=== PATIENT | female | born 1985 | race Hispanic/Latino ===

== ENCOUNTER 2018-03-22 13:59 | Emergency (ER) | payer SELFPAY ==
[2018-03-22 14:57] LABS: Absolute Lymphocytes (CBC) 1.7 K/uL (0.7-4.9); Absolute Monocytes 0.8 K/uL (0.1-1.3); Absolute Neutrophil 8.1 K/uL (1.8-8.0); Basophils % 0.4 % (0-1.3); Eosinophils % 0.5 % (0-4.4); Hematocrit 41.6 % (36.0-45.0); Lymphocytes % 15.8 % (15.3-44.8); MPV 8.7 fL (7.6-11.3); Monocytes % 7.3 % (3.3-12.3); RBC Red Blood Cell Count 4.52 M/uL (3.86-4.86)
[2018-03-22 15:17] LABS: Potassium 3.7 mmol/L (3.5-5.1)
[2018-03-22 15:22] LABS: Bilirubin Direct 0.1 mg/dL (0-0.2)
[2018-03-22 15:24] LABS: Bilirubin Total 0.3 mg/dL (0.2-1.0); Protein, Total 8.4 g/dL (6.4-8.2)
--- NOTE | 2018-03-22 16:12 | ER ---
Nurse's Notes [facility] Name: Geoff Sanz Age: 32 yrs Sex: Female : 1985 Arrival Date: 03/22/2018 Time: 14:06 Bed 23 Private MD: Diagnosis: Abdominal and pelvic pain Presentation: 03/22 14:06 Presenting complaint: EMS states: She has had abdominal pain off and on for 4 days. ed1 Reports blood in urine and stool. Transition of care: patient was not received from another setting of care. Onset of symptoms was March 18, 2018. Risk Assessment: Do you want to hurt yourself or someone else? Patient reports no desire to harm self or others. Initial Sepsis Screen: Does the patient meet any 2 criteria? No. Patient's initial sepsis screen is negative. Does the patient have a suspected source of infection? No. Patient's initial sepsis screen is negative. Care prior to arrival: Medication(s) given: zofran 4 mg, IV initiated. 20 GA, in the left forearm. 14:06 Method Of Arrival: EMS: [facility] ed1 14:08 Acuity: BERNADETTE 3 hb Triage Assessment: 14:09 General: Appears in no apparent distress. Behavior is calm, cooperative. Pain: Denies ed1 pain. GI: Abdomen is non-distended, Bowel sounds present X 4 quads. Abd is soft and non tender X 4 quads. Reports lower abdominal pain, bloody stool, nausea, Patient currently denies vomiting. : Reports blood in urine. Derm: Skin is intact, is healthy with good turgor, Skin is dry, Skin is normal, Skin temperature is warm. 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 - Social history:: Patient uses IV drugs, amphetamines, Patient/guardian denies using alcohol, street drugs, The patient lives with family, Smoking status: Patient uses tobacco products, smokes one pack cigarettes per day. - Ebola Screening: : Patient negative for fever greater than or equal to 101.5 degrees Fahrenheit, and additional compatible Ebola Virus Disease symptoms Patient denies exposure to infectious person Patient denies travel to an Ebola-affected area in the 21 days before illness onset No symptoms or risks identified at this time. - Family history:: not pertinent. Screenin:12 Abuse screen: Denies threats or abuse. Denies injuries from another. Nutritional ed1 screening: No deficits noted. Tuberculosis screening: No symptoms or risk factors identified. Fall Risk No fall in past 12 months (0 pts). No secondary diagnosis (0 pts). IV access (20 points). Ambulatory Aid- None/Bed Rest/Nurse Assist (0 pts). Gait- Normal/Bed Rest/Wheelchair (0 pts) Mental Status- Oriented to own ability (0 pts). Total Kennedy Fall Scale indicates No Risk (0-24 pts). Assessment: 14:12 General: Appears in no apparent distress. Behavior is calm, cooperative, Denies pain at ed1 this time. Pain: Denies pain. Neuro: Level of Consciousness is awake, alert, obeys commands, Oriented to person, place, time, situation. Cardiovascular: Denies chest pain, Heart tones S1 S2 present. Respiratory: Airway is patent Respiratory effort is even, unlabored, Respiratory pattern is regular, symmetrical, Breath sounds are clear bilaterally. GI: Abdomen is non-distended, Bowel sounds present X 4 quads. Abd is soft and non tender X 4 quads. Reports lower abdominal pain, bloody stool, nausea, pain that comes and goes. : Reports blood in urine. EENT: No signs and/or symptoms were reported regarding the EENT system. Derm: Skin is intact, is healthy with good turgor, Skin is dry, Skin is normal, Skin temperature is warm. Musculoskeletal: Circulation, motion, and sensation intact. 14:30 Reassessment: I agree with previous assessment. hb 15:14 Reassessment: Patient appears in no apparent distress at this time. No changes from ed1 previously documented assessment. Patient and/or family updated on plan of care and expected duration. Pain level reassessed. Patient is alert, oriented x 3, equal unlabored respirations, skin warm/dry/pink. Patient denies pain at this time. 16:20 Reassessment: Patient appears in no apparent distress at this time. Patient and/or ed1 family updated on plan of care and expected duration. Pain level reassessed. Patient is alert, oriented x 3, equal unlabored respirations, skin warm/dry/pink. Pt sleeping in bed. Vital Signs: 14:09 BP 110 / 94; Pulse 78; Resp 18; Temp 98.6(O); Pulse Ox 100% on R/A; Weight 74.84 kg; ed1 Height 5 ft. 1 in. (154.94 cm); Pain 0/10; 15:14 BP 103 / 76; Pulse 72; Resp 19; Pulse Ox 100% on R/A; Pain 0/10; ed1 16:20 BP 109 / 76; Pulse 83; Resp 17; Pulse Ox 100% on R/A; Pain 0/10; ed1 14:09 Body Mass Index 31.18 (74.84 kg, 154.94 cm) ed1 ED Course: 14:06 Patient arrived in ED. ed1 14:07 Abran Carpio MD is Attending Physician. ma2 14:09 Arm band placed on right wrist. ed1 14:12 Patient has correct armband on for positive identification. Placed in gown. Bed in low ed1 position. Call light in reach. Side rails up X 1. Pulse ox on. NIBP on. Door closed. Lights dimmed. Warm blanket given. 14:18 Triage completed. 14:44 Cece Magallon LVN is Primary Nurse. ed1 16:20 No provider procedures requiring assistance completed. IV discontinued, intact, ed1 bleeding controlled, No redness/swelling at site. Pressure dressing applied. Administered Medications: 15:15 Not Given (Patient Refused): Tylenol 1000 mg PO once ed1 Outcome: 16:11 Discharge ordered by . ma2 16:20 Discharged to home via wheelchair. ed1 16:20 Condition: good 16:20 Discharge instructions given to patient, Instructed on discharge instructions, follow up and referral plans. medication usage, Demonstrated understanding of instructions, follow-up care, medications, Prescriptions given X 1. 16:28 Patient left the ED. ed1 Signatures: Cece Magallon LVN LVN ed1 Meena Garza, RN RN Abran Carpio MD MD ma2
--- NOTE | 2018-03-22 16:12 | EDPHYS ---
Physician Documentation [facility] Name: Geoff Sanz Age: 32 yrs Sex: Female : 1985 Arrival Date: 03/22/2018 Time: 14:06 Bed 23 Private MD: ED Physician Abran Carpio HPI: 03/22 14:25 This 32 yrs old Female presents to ER via EMS with complaints of Abdominal ma2 Pain. 14:25 The patient presents with abdominal pain. Onset: The symptoms/episode began/occurred ma2 gradually. The symptoms radiate to right leg. Associated signs and symptoms: Pertinent negatives: nausea, vomiting, and diarrhea, nausea and vomiting, blood in stools, chest pain, constipation, palpitations, vaginal discharge, vomiting blood. The symptoms are described as burning. Severity of pain: At its worst the pain was moderate in the emergency department the pain is unchanged. The patient has experienced similar episodes in the past. 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 - Social history:: Patient uses IV drugs, amphetamines, Patient/guardian denies using alcohol, street drugs, The patient lives with family, Smoking status: Patient uses tobacco products, smokes one pack cigarettes per day. - Ebola Screening: : Patient negative for fever greater than or equal to 101.5 degrees Fahrenheit, and additional compatible Ebola Virus Disease symptoms Patient denies exposure to infectious person Patient denies travel to an Ebola-affected area in the 21 days before illness onset No symptoms or risks identified at this time. - Family history:: not pertinent. ROS: 14:25 Constitutional: Negative for fever, chills, and weight loss, Cardiovascular: Negative ma2 for chest pain, palpitations, and edema, Respiratory: Negative for shortness of breath, cough, wheezing, and pleuritic chest pain, Back: Negative for injury and pain, : Negative for injury, bleeding, discharge, and swelling, Endocrine: Negative for neck swelling, polydipsia, polyuria, polyphagia, and marked weight changes. 14:25 Abdomen/GI: Positive for abdominal pain, Negative for nausea and vomiting, nausea, vomiting, and diarrhea, vomiting, abdominal cramps. 14:25 All other systems are negative. Exam: 14:25 Constitutional: This is a well developed, well nourished patient who is awake, alert, ma2 and in no acute distress. ENT: Nares patent. No nasal discharge, no septal abnormalities noted. Tympanic membranes are normal and external auditory canals are clear. Oropharynx with no redness, swelling, or masses, exudates, or evidence of obstruction, uvula midline. Mucous membranes moist. Neck: Trachea midline, no thyromegaly or masses palpated, and no cervical lymphadenopathy. Supple, full range of motion without nuchal rigidity, or vertebral point tenderness. No Meningismus. Chest/axilla: Normal chest wall appearance and motion. Nontender with no deformity. No lesions are appreciated. Cardiovascular: Regular rate and rhythm with a normal S1 and S2. No gallops, murmurs, or rubs. Normal PMI, no JVD. No pulse deficits. Respiratory: Lungs have equal breath sounds bilaterally, clear to auscultation and percussion. No rales, rhonchi or wheezes noted. No increased work of breathing, no retractions or nasal flaring. Abdomen/GI: Soft, non-tender, with normal bowel sounds. No distension or tympany. No guarding or rebound. No evidence of tenderness throughout. Vital Signs: 14:09 BP 110 / 94; Pulse 78; Resp 18; Temp 98.6(O); Pulse Ox 100% on R/A; Weight 74.84 kg; ed1 Height 5 ft. 1 in. (154.94 cm); Pain 0/10; 15:14 BP 103 / 76; Pulse 72; Resp 19; Pulse Ox 100% on R/A; Pain 0/10; ed1 16:20 BP 109 / 76; Pulse 83; Resp 17; Pulse Ox 100% on R/A; Pain 0/10; ed1 14:09 Body Mass Index 31.18 (74.84 kg, 154.94 cm) ed1 MDM: 14:07 Patient medically screened. ma2 14:25 Differential diagnosis: Dysmenorrhea, Endometriosis, gastritis, gastroesophageal reflux ma2 disease. 16:10 Data reviewed: vital signs, nurses notes. Counseling: I had a detailed discussion with carmella the patient and/or guardian regarding: the historical points, exam findings, and any diagnostic results supporting the discharge/admit diagnosis, the presence of at least one elevated blood pressure reading (>120/80) during this emergency department visit, the need for outpatient follow up. Response to treatment: the patient's symptoms have resolved after treatment. 03/22 14:17 Order name: Basic Metabolic Panel [facility] 03/22 14:17 Order name: CBC with Diff; Complete Time: 15:39 [facility] 03/22 14:17 Order name: Creatinine for Radiology; Complete Time: 15:39 [facility] 03/22 14:17 Order name: Hepatic Function [facility] 03/22 14:17 Order name: Lipase [facility] 03/22 14:17 Order name: IV Saline Lock; Complete Time: 14:45 [facility] 03/22 14:17 Order name: Labs collected and sent; Complete Time: 14:45 [facility] Administered Medications: 15:15 Not Given (Patient Refused): Tylenol 1000 mg PO once ed1 Disposition: 03/22/18 16:11 Discharged to Home. Impression: Abdominal and pelvic pain. - Condition is Stable. - Discharge Instructions: Abdominal Pain, Adult. - Prescriptions for Tylenol- Codeine #3 300-30 mg Oral Tablet - take 2 tablet by ORAL route every 6 hours As needed; 30 tablet. - Medication Reconciliation Form, Thank You Letter, Antibiotic Education, Prescription Opioid Use form. - Follow up: Private Physician; When: Tomorrow; Reason: Continuance of care. Signatures: Dispatcher [employer] EDMS Cece Magallon LVN SPRING FLOOR SERVICE WORKER ed1 Abran Carpio MD MD ma2 Corrections: (The following items were deleted from the chart) 16:28 16:11 03/22/2018 16:11 Discharged to Home. Impression: Abdominal and pelvic pain. ed1 Condition is Stable. Forms are Medication Reconciliation Form, Thank You Letter, Antibiotic Education, Prescription Opioid Use. Follow up: Private Physician; When: Tomorrow; Reason: Continuance of care. ma2
[2018-03-22 16:36] LABS: Albumin 3.9 g/dL (3.4-5.0)
== END 2018-03-22 16:28 | disposition home or self-care (01) ==
LOC: ER 13:59
DX: R10.9 Unspecified abdominal pain (principal); R10.2 Pelvic and perineal pain; F17.210 Nicotine dependence, cigarettes, uncomplicated
CPT/HCPCS: 36415; 80048; 80076; 83690; 85025; 99283

== ENCOUNTER 2018-06-01 15:13 | Emergency (ER) | payer SELFPAY ==
[2018-06-01 16:29] LABS: Barbiturates NEGATIVE (NEGATIVE); Benzodiazepines POSITIVE (NEGATIVE); Cocaine NEGATIVE (NEGATIVE); METHAMPHETAM POSITIVE (NEGATIVE); Methadone NEGATIVE (NEGATIVE); Opiates NEGATIVE (NEGATIVE); Phencyclidine NEGATIVE (NEGATIVE); THC Cannibis NEGATIVE (NEGATIVE)
[2018-06-01] MEDS ORDERED: DICYCLOMINE HCL 10 MG CAP ONE (16:39)
[2018-06-01] MEDS ORDERED: PANTOPRAZOLE 40 MG INJ ONE (16:39)
[2018-06-01] MEDS ORDERED: NA CHLORIDE 0.9% 1,000 ML ONE (16:39)
[2018-06-01 17:02] LABS: Absolute Lymphocytes (CBC) 1.2 K/uL (0.7-4.9); Absolute Monocytes 0.5 K/uL (0.1-1.3); Absolute Neutrophil 9.9 K/uL (1.8-8.0); Basophils % 0.6 % (0-1.3); Eosinophils % 0.2 % (0-4.4); Hematocrit 38.9 % (36.0-45.0); Lymphocytes % 10.2 % (15.3-44.8); MPV 9.1 fL (7.6-11.3); Monocytes % 4.4 % (3.3-12.3); RBC Red Blood Cell Count 4.23 M/uL (3.86-4.86)
[2018-06-01] MEDS ORDERED: LIDOCAINE VISCOUS 2% SOLN 15 ML UDC ONE (17:54)
[2018-06-01] MEDS ORDERED: MAGNE/ALUM HYDROXD 30 ML UCUP ONE (17:54)
--- NOTE | 2018-06-01 17:54 | RAD REPORT ---
EXAM DESCRIPTION: RAD - Chest Single View - 06/01/2018 5:41 pm CLINICAL HISTORY: Abdominal pain, vomiting COMPARISON: None. TECHNIQUE: AP portable chest image was obtained 1739 hours . FINDINGS: Lungs are clear. Heart and vasculature are normal. No measurable pleural effusion and no p neumothorax. No acute bony abnormality seen. No acute aortic findings suspected. IMPRESSION: No acute cardiopulmonary process.
[2018-06-01 17:56] LABS: ALT/SGPT 13 U/L (12-78); AST/SGOT 13 U/L (15-37); Albumin 3.9 g/dL (3.4-5.0); Alkaline Phosphatase 75 U/L (45-117); Amylase Level 50 U/L (25-115); BUN Blood Urea Nitrogen 12 mg/dL (7-18); Bicarbonate 26 mmol/L (21-32); Bilirubin Direct < 0.1 mg/dL (0-0.2); Bilirubin Total 0.3 mg/dL (0.2-1.0); Glucose Level 116 mg/dL (74-106); Lipase 54 U/L (73-393); Potassium 3.9 mmol/L (3.5-5.1); Protein, Total 7.8 g/dL (6.4-8.2); Sodium Level 140 mmol/L (136-145)
[2018-06-01 20:10] LABS: Urine Blood TRACE (NEG); Urine Glucose NEGATIVE (NEG); Urine Protein TRACE (NEG)
--- NOTE | 2018-06-01 20:15 | ER ---
Nurse's Notes [facility] Name: Geoff Sanz Age: 32 yrs Sex: Female : 1985 Arrival Date: 06/01/2018 Time: 15:19 Bed 3 Private MD: Diagnosis: Upper abdominal pain, unspecified;Drug induced movement disorder, unspecified-abdominal pain Presentation: 06/01 15:19 Presenting complaint: Patient states: Abdominal pain and vomiting for the past week. aj1 States "I've had this happen numerous times, they never find anything" EMS states that en route patient vomited something that appeared "red and watery" Patient appears pale. States that she smokes "a lot of synthetic", last smoked synthetic earlier today. Transition of care: patient was not received from another setting of care. Onset of symptoms was May 31, 2017. Risk Assessment: Do you want to hurt yourself or someone else? Patient reports no desire to harm self or others. Initial Sepsis Screen: Does the patient meet any 2 criteria? No. Patient's initial sepsis screen is negative. Does the patient have a suspected source of infection? Yes: Acute abdominal pain. Care prior to arrival: None. 15:19 Method Of Arrival: EMS: [facility] aj 15:19 Acuity: BERNADETTE 3 aj1 Triage Assessment: 15:23 General: Appears uncomfortable, Behavior is cooperative, anxious, restless. Pain: aj1 Complains of pain in abdomen diffusely Pain currently is 10 out of 10 on a pain scale. GI: Reports lower abdominal pain, upper abdominal pain, vomiting. 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 - Social history:: Smoking status: Patient/guardian denies using tobacco, Patient uses synthetic marijuana . - Ebola Screening: : Patient denies travel to an Ebola-affected area in the 21 days before illness onset. Screenin:24 Abuse screen: Denies threats or abuse. Denies injuries from another. Nutritional aj1 screening: No deficits noted. Tuberculosis screening: No symptoms or risk factors identified. Assessment: 15:24 General: Appears uncomfortable, Behavior is cooperative, anxious, restless. Pain: aj1 Complains of pain in abdomen diffusely Pain does not radiate. Pain currently is 10 out of 10 on a pain scale. Quality of pain is described as sharp, Pain began one week ago Is intermittent. Neuro: Level of Consciousness is awake, alert, obeys commands. Cardiovascular: Patient's skin is warm and dry. Respiratory: Airway is patent Respiratory effort is even, unlabored, Respiratory pattern is regular, symmetrical. GI: Abdomen is flat, non-distended, Bowel sounds present X 4 quads. Abdomen is tender to palpation X 4 quads. : No signs and/or symptoms were reported regarding the genitourinary system. EENT: No signs and/or symptoms were reported regarding the EENT system. Derm: Skin is pale. Musculoskeletal: No signs and/or symptoms reported regarding the musculoskeletal system. Circulation, motion, and sensation intact. 16:40 Reassessment: Patient and/or family updated on plan of care and expected duration. Pain sg level reassessed. pt states " I need some fucking pain medication, my stomach is hurting. Shes been saying she was going to bring me some pain medication but no one has yet". pt educated on pain control and non pharm management, pt stated understanding, refuses to use those techniques at this time and reports needing the pain relievers. 17:40 Reassessment: Patient appears in no apparent distress at this time. No changes from aj1 previously documented assessment. Patient and/or family updated on plan of care and expected duration. Pain level reassessed. Patient is alert, oriented x 3, equal unlabored respirations, skin warm/dry/pink. 18:30 Reassessment: Patient appears calm, is sleeping at this time. aj1 19:39 Reassessment: Patient appears in no apparent distress at this time. No changes from aj1 previously documented assessment. Patient and/or family updated on plan of care and expected duration. Pain level reassessed. Patient is alert, oriented x 3, equal unlabored respirations, skin warm/dry/pink. 20:30 Reassessment: Patient is screaming, crying. States that she does not want to be aj1 discharged, patient is refusing to ambulate, she feels like her pain was not addressed. Notified LAURIE Barrios, nurse marketing communication manager of patient complaint. LAURIE Barrios, nurse marketing communication manager at bedside. 20:45 Reassessment: Mary Webster NP at bedside. aj1 21:00 Reassessment: Patient continues yelling, refuses Toradol, then immediately asks for aj1 something for pain. Deidra RN, charge nurse at bedside. 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 Vital Signs: 15:23 BP 159 / 95; Pulse 83; Resp 18; Temp 97.9(TE); Pulse Ox 97% on R/A; Weight 56.7 kg (R); aj1 Height 5 ft. 0 in. (152.40 cm) (R); Pain 10/10; 16:30 BP 154 / 73; Pulse 64; Resp 18; Pulse Ox 97% on R/A; aj1 17:30 BP 114 / 67; Pulse 65; Resp 18; Pulse Ox 100% on R/A; aj1 18:02 BP 152 / 93; Pulse 53; Resp 18; Pulse Ox 99% on R/A; aj1 19:39 BP 142 / 93; Pulse 52; Resp 18; Pulse Ox 100% ; aj1 20:15 BP 141 / 85; Pulse 63; Resp 18; Pulse Ox 98% ; aj1 15:23 Body Mass Index 24.41 (56.70 kg, 152.40 cm) aj1 ED Course: 15:19 Patient arrived in ED. aj1 15:22 Triage completed. aj1 15:23 Arm band placed on. aj1 15:24 Patient has correct armband on for positive identification. Bed in low position. Call aj1 light in reach. Side rails up X 1. 15:24 No provider procedures requiring assistance completed. aj1 15:53 Misti Webster FNP-C is [facility]. snw 15:53 Nando Meyers MD is Attending Physician. snw 15:58 Katharina Rosario, LAURIE is Primary Nurse. aj1 16:30 Inserted saline lock: 20 gauge in right antecubital area, using aseptic technique. jp3 Blood collected. 16:30 Initial lab(s) drawn, by in, sent to lab. Urine collected: clean catch specimen, clear, jp3 maria dolores colored. 16:35 Urine --Ancillary (enter results) Sent. jp3 16:35 Urine Dipstick--Ancillary (enter results) Sent. jp3 16:35 Chem 7 Sent. jp3 16:35 CBC with Diff Sent. jp3 16:35 Amylase, Serum Sent. jp3 16:35 Hepatic Function Sent. jp3 16:35 Lipase Sent. jp3 17:41 Chest Single View XRAY In Process Unspecified. EDMS 21:17 IV discontinued, intact, bleeding controlled, No redness/swelling at site. Pressure bb dressing applied. Administered Medications: 16:37 Drug: ProTONIX 40 mg Route: IVP; Site: right antecubital; sg 16:37 Drug: Bentyl 20 mg Route: PO; sg 16:38 Drug: NS 0.9% 1000 ml Route: IV; Rate: 1 bolus; Site: right antecubital; sg 17:53 Drug: GI Cocktail without - (Maalox Suspension 30 ml, Lidocaine Liquid 2 % 15 aj1 ml) Route: PO; 20:49 CANCELLED (Duplicate Order): TORadol 60 mg IM once dm5 21:11 CANCELLED (Patient Refused): TORadol 60 mg IM once aj1 Outcome: 20:14 Discharge ordered by . carmen 21:29 Discharged to home via wheelchair. bb 21:29 Condition: stable 21:29 Discharge instructions given to patient, Instructed on discharge instructions, follow up and referral plans. medication usage, Demonstrated understanding of instructions, follow-up care, medications, Prescriptions given X 1. 21:30 Patient left the ED. bb Signatures: Dispatcher [employer] EDKY Katharina Rosario RN RN aj1 Malachi Hidalgo RN RN sg Misti Webster, STRATEGY INTERN-C STRATEGY INTERN-Csnw Deidra Ngo RN RN Vitaliy Pimentel jp3 Dana Quick RN dm5
--- NOTE | 2018-06-01 20:15 | EDPHYS ---
Physician Documentation [facility] Name: Geoff Sanz Age: 32 yrs Sex: Female : 1985 Arrival Date: 06/01/2018 Time: 15:19 Bed 3 Private MD: ED Physician Nando Meyers HPI: 06/01 16:16 This 32 yrs old Female presents to ER via EMS with complaints of Abdominal snw Pain. 16:16 The patient presents with abdominal pain in the upper abdomen. Onset: The snw symptoms/episode began/occurred suddenly, status post smoking synthetic. The symptoms do not radiate. Associated signs and symptoms: Pertinent positives: nausea, anxiety. The symptoms are described as crampy, sharp. Modifying factors: The symptoms are alleviated by nothing. Severity of pain: At its worst the pain was moderate severe. The patient has experienced similar episodes in the past. It is unknown whether or not the patient has recently seen a physician. 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 - Social history:: Smoking status: Patient/guardian denies using tobacco, Patient uses synthetic marijuana . - Ebola Screening: : Patient denies travel to an Ebola-affected area in the 21 days before illness onset. ROS: 16:16 Constitutional: Negative for fever, chills, and weight loss, Eyes: Negative for injury, snw pain, redness, and discharge, ENT: Negative for injury, pain, and discharge, Neck: Negative for injury, pain, and swelling, Cardiovascular: Negative for chest pain, palpitations, and edema, Respiratory: Negative for shortness of breath, cough, wheezing, and pleuritic chest pain, Back: Negative for injury and pain, : Negative for injury, bleeding, discharge, and swelling, MS/Extremity: Negative for injury and deformity, Skin: Negative for injury, rash, and discoloration, Neuro: Negative for headache, weakness, numbness, tingling, and seizure. 16:16 Abdomen/GI: Positive for abdominal pain, nausea. Exam: 16:16 Constitutional: This is a well developed, well nourished patient who is awake, jumpy, snw and in abdominal distress. Head/Face: Normocephalic, atraumatic. Eyes: Pupils equal round and reactive to light, extra-ocular motions intact. Lids and lashes normal. Conjunctiva and sclera are non-icteric and not injected. Cornea within normal limits. Periorbital areas with no swelling, redness, or edema. ENT: Nares patent. No nasal discharge, no septal abnormalities noted. Tympanic membranes are normal and external auditory canals are clear. Oropharynx with no redness, swelling, or masses, exudates, or evidence of obstruction, uvula midline. Mucous membranes moist. Neck: Trachea midline, no thyromegaly or masses palpated, and no cervical lymphadenopathy. Supple, full range of motion without nuchal rigidity, or vertebral point tenderness. No Meningismus. Chest/axilla: Normal chest wall appearance and motion. Nontender with no deformity. No lesions are appreciated. Cardiovascular: Regular rate and rhythm with a normal S1 and S2. No gallops, murmurs, or rubs. Normal PMI, no JVD. No pulse deficits. Respiratory: Lungs have equal breath sounds bilaterally, clear to auscultation and percussion. No rales, rhonchi or wheezes noted. No increased work of breathing, no retractions or nasal flaring. Back: No spinal tenderness. No costovertebral tenderness. Full range of motion. Skin: Warm, dry with normal turgor. Normal color with no rashes, no lesions, and no evidence of cellulitis. MS/ Extremity: Pulses equal, no cyanosis. Neurovascular intact. Full, normal range of motion. Neuro: Awake and alert, GCS 15, oriented to person, place, time, and situation. Cranial nerves II-XII grossly intact. Motor strength 5/5 in all extremities. Sensory grossly intact. Cerebellar exam normal. Normal gait. Psych: Awake, alert, with orientation to person, place and time. Behavior, mood, and affect are within normal limits. 16:16 Abdomen/GI: Inspection: abdomen appears normal, Bowel sounds: active, Palpation: moderate abdominal tenderness, in the epigastric area, right upper quadrant and left upper quadrant. Vital Signs: 15:23 BP 159 / 95; Pulse 83; Resp 18; Temp 97.9(TE); Pulse Ox 97% on R/A; Weight 56.7 kg (R); aj1 Height 5 ft. 0 in. (152.40 cm) (R); Pain 10/10; 16:30 BP 154 / 73; Pulse 64; Resp 18; Pulse Ox 97% on R/A; aj1 17:30 BP 114 / 67; Pulse 65; Resp 18; Pulse Ox 100% on R/A; aj1 18:02 BP 152 / 93; Pulse 53; Resp 18; Pulse Ox 99% on R/A; aj1 19:39 BP 142 / 93; Pulse 52; Resp 18; Pulse Ox 100% ; aj1 20:15 BP 141 / 85; Pulse 63; Resp 18; Pulse Ox 98% ; aj1 15:23 Body Mass Index 24.41 (56.70 kg, 152.40 cm) aj1 MDM: 15:53 Patient medically screened. snw 17:47 Data reviewed: vital signs, nurses notes. Data interpreted: Pulse oximetry: on room air snw is 97 %. Interpretation: normal. Counseling: I had a detailed discussion with the patient and/or guardian regarding: the historical points, exam findings, and any diagnostic results supporting the discharge/admit diagnosis, lab results, radiology results, the need for outpatient follow up. Response to treatment: There is no appreciated change of the patient's symptoms at this time, still c/o upper abdominal pain. 06/01 15:57 Order name: UDS; Complete Time: 16:42 snw 06/01 15:57 Order name: Amylase, Serum; Complete Time: 17:57 snw 06/01 15:57 Order name: Hepatic Function; Complete Time: 17:57 snw 06/01 15:57 Order name: Lipase; Complete Time: 17:57 snw 06/01 15:57 Order name: CBC with Diff; Complete Time: 17:17 snw 06/01 15:57 Order name: Chem 7; Complete Time: 17:57 snw 06/01 15:57 Order name: Chest Single View XRAY; Complete Time: 17:56 snw 06/01 16:23 Order name: Urine Dipstick--Ancillary (enter results); Complete Time: 20:16 eb 06/01 16:23 Order name: Urine --Ancillary (enter results); Complete Time: 20:16 eb Administered Medications: 16:37 Drug: ProTONIX 40 mg Route: IVP; Site: right antecubital; sg 16:37 Drug: Bentyl 20 mg Route: PO; sg 16:38 Drug: NS 0.9% 1000 ml Route: IV; Rate: 1 bolus; Site: right antecubital; sg 17:53 Drug: GI Cocktail without - (Maalox Suspension 30 ml, Lidocaine Liquid 2 % 15 aj1 ml) Route: PO; 20:49 CANCELLED (Duplicate Order): TORadol 60 mg IM once dm5 21:11 CANCELLED (Patient Refused): TORadol 60 mg IM once aj1 Disposition: 06/01/18 20:14 Discharged to Home. Impression: Upper abdominal pain, unspecified, Drug induced movement disorder, unspecified - abdominal pain. - Condition is Stable. - Discharge Instructions: Abdominal Pain, Adult, What You Need To Know About Illegal Drug Use and Dependence, Youth. - Prescriptions for Pepcid 20 mg Oral Tablet - take 1 tablet by ORAL route once daily; 20 tablet. - Medication Reconciliation Form, Thank You Letter, Antibiotic Education, Prescription Opioid Use form. - Follow up: Emergency Department; When: 2 - 3 days; Reason: Recheck today's complaints, Continuance of care, Re-evaluation by your physician. Follow up: Private Physician; When: 2 - 3 days; Reason: Recheck today's complaints, Continuance of care, Re-evaluation by your physician. Addendum: 06/04/2018 06:53 Co-signature as Attending Physician, Nando Meyers MD I agree with the assessment and k dr plan of care. Signatures: Dispatcher [employer] EDDC Katharina Rosario RN RN aj Dana Quick RN RN dm Malachi Hidalgo RN RN Nando Meyers MD MD kdr Therrien, Shelly, SPICE GRINDER-C SPICE GRINDER-Csnw Deidra Ngo RN RN bb Corrections: (The following items were deleted from the chart) 06/01 20:49 20:49 TORadol 60 mg IM once ordered. dm5 dm5 21:11 20:49 TORadol 60 mg IM once ordered. snw aj1 21:30 20:14 06/01/2018 20:14 Discharged to Home. Impression: Upper abdominal pain, bb unspecified; Drug induced movement disorder, unspecified - abdominal pain. Condition is Stable. Forms are Medication Reconciliation Form, Thank You Letter, Antibiotic Education, Prescription Opioid Use. Follow up: Emergency Department; When: 2 - 3 days; Reason: Recheck today's complaints, Continuance of care, Re-evaluation by your physician. Follow up: Private Physician; When: 2 - 3 days; Reason: Recheck today's complaints, Continuance of care, Re-evaluation by your physician. snw
[2018-06-01] MEDS ORDERED: KETOROLAC 30 MG/ML INJ ONE (21:19)
== END 2018-06-01 21:30 | disposition home or self-care (01) ==
LOC: ER 15:13
DX: G25.70 Drug induced movement disorder, unspecified (principal); Z88.1 Allergy status to other antibiotic agents
CPT/HCPCS: 36415; 71045; 80048; 80076; 80307; 81003; 81025; 82150; 83690; 85025; 96374; 99284; C9113; J7030

== ENCOUNTER 2018-06-04 22:50 | Emergency (ER) | payer SELFPAY ==
[2018-06-05] MEDS ORDERED: ACETAMINOPHEN 500 MG TAB ONE (01:50)
[2018-06-05] MEDS ORDERED: BUPIVACAINE 0.5% PF 10 ML VIAL ONE (01:50)
[2018-06-05] MEDS ORDERED: CLINDAMYCIN IV 150 MG/ML (4 mL) VIAL ONE (01:51)
[2018-06-05] MEDS ORDERED: CLINDAMYCIN 600MG/D5W 600 MG/50 ML BAG IV ONE (01:53)
--- NOTE | 2018-06-05 04:32 | EDPHYS ---
Physician Documentation [facility] Name: Geoff Sanz Age: 32 yrs Sex: Female : 1985 Arrival Date: 06/04/2018 Time: 22:52 Bed 8 Private MD: ED Physician Manjinder Jean HPI: 06/05 04:19 This 32 yrs old Female presents to ER via Ambulatory with complaints of wa Abscess - MOUTH. 04:19 The patient presents with an abscess of the R lower pavithra gum line, the patient presents wa with a swollen area of the by the R lower gumline. Description: The affected area is moderate sized, localized, erythematous, swollen, pain. Onset: The symptoms/episode began/occurred 3 day(s) ago. Possible cause(s): unknown. Associated signs and symptoms: Pertinent positives: erythema, swelling, pain, Pertinent negatives: discharge, fever, headache, shortness of breath, vomiting. Modifying factors: the symptoms are alleviated by nothing, the symptoms are aggravated by chewing . Severity of symptoms: At their worst the symptoms were moderate, in the emergency department the symptoms are actually worse, moderately. The patient has not experienced similar symptoms in the past. The patient has not recently seen a physician. 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 - Social history:: Smoking status: Patient/guardian denies using tobacco. - Ebola Screening: : No symptoms or risks identified at this time. - Family history:: not pertinent. - Hospitalizations: : No recent hospitalization is reported. ROS: 06/05 04:22 Constitutional: Negative for fever, chills, and weight loss, Eyes: Negative for injury, wa pain, redness, and discharge, Neck: Negative for injury, pain, and swelling, Cardiovascular: Negative for chest pain, palpitations, and edema, Respiratory: Negative for shortness of breath, cough, wheezing, and pleuritic chest pain, Abdomen/GI: Negative for abdominal pain, nausea, vomiting, diarrhea, and constipation, Back: Negative for injury and pain, : Negative for injury, bleeding, discharge, and swelling, MS/Extremity: Negative for injury and deformity, Skin: Negative for injury, rash, and discoloration, Neuro: Negative for headache, weakness, numbness, tingling, and seizure, Psych: Negative for depression, anxiety, suicide ideation, homicidal ideation, and hallucinations. ENT: Positive for dental pain, Gum pain R lower gum line, swelling and redness with pain. All other systems are negative. Exam: 04:25 Constitutional: This is a well developed, well nourished patient who is awake, alert, wa and in no acute distress. Head/Face: Normocephalic, atraumatic. Eyes: Pupils equal round and reactive to light, extra-ocular motions intact. Lids and lashes normal. Conjunctiva and sclera are non-icteric and not injected. Cornea within normal limits. Periorbital areas with no swelling, redness, or edema. Neck: Trachea midline, no thyromegaly or masses palpated, and no cervical lymphadenopathy. Supple, full range of motion without nuchal rigidity, or vertebral point tenderness. No Meningismus. Chest/axilla: Normal chest wall appearance and motion. Nontender with no deformity. No lesions are appreciated. Cardiovascular: Regular rate and rhythm with a normal S1 and S2. No gallops, murmurs, or rubs. Normal PMI, no JVD. No pulse deficits. Respiratory: Lungs have equal breath sounds bilaterally, clear to auscultation and percussion. No rales, rhonchi or wheezes noted. No increased work of breathing, no retractions or nasal flaring. Abdomen/GI: Soft, non-tender, with normal bowel sounds. No distension or tympany. No guarding or rebound. No evidence of tenderness throughout. Back: No spinal tenderness. No costovertebral tenderness. Full range of motion. Skin: Warm, dry with normal turgor. Normal color with no rashes, no lesions, and no evidence of cellulitis. MS/ Extremity: Pulses equal, no cyanosis. Neurovascular intact. Full, normal range of motion. Neuro: Awake and alert, GCS 15, oriented to person, place, time, and situation. Cranial nerves II-XII grossly intact. Motor strength 5/5 in all extremities. Sensory grossly intact. Cerebellar exam normal. Normal gait. Psych: Awake, alert, with orientation to person, place and time. Behavior, mood, and affect are within normal limits. 04:25 ENT: External ear(s): are unremarkable, Ear canal(s): are normal, TM's: are normal, Posterior pharynx: is normal, Dental exam: abscess, specifically in the lower right second bicuspid (#29) and lower right first molar (#30), dental caries, gum swelling, that is moderate, specifically in the lower right second bicuspid (#29) and lower right first molar (#30), poor , decaying dentition. noted abscess R lower mid gingiva. , Voice: is normal. Vital Signs: 06/04 23:33 BP 112 / 79; Pulse 103; Resp 18; Temp 99; Pulse Ox 97% ; Weight 55.79 kg; Height 5 ft. ea (152.40 cm); Pain 9/10; 06/05 00:35 BP 136 / 97; Pulse 101; Resp 18; Temp 98.3(O); Pulse Ox 98% on R/A; tl2 02:13 BP 125 / 88; Pulse 98; Resp 18; Pulse Ox 98% on R/A; tl2 04:40 BP 98 / 70; Pulse 90; Resp 18; Pulse Ox 97% on R/A; tl2 06/04 23:33 Body Mass Index 24.02 (55.79 kg, 152.40 cm) ea Procedures: 04:28 I \T\ D: Incision and drainage was performed for an abscess of the right lower mandible wa mid gum region Prepped with saline spray. Anesthetized with 0.25% bupuvacaine. Incised with #11 blade. Drained moderate amount purulent fluid. Dressing: sterile 4x4 gauze, the patient tolerated the procedure well. MDM: 01:07 Patient medically screened. wy 04:27 Differential diagnosis: abscess, multi-level dental caries noted. Differential wy diagnosis: will I\T\D. IV abx. . Data reviewed: vital signs, nurses notes. Response to treatment: the patient's symptoms have markedly improved after treatment. 06/05 01:31 Order name: IV Start; Complete Time: 01:56 wa 06/05 01:31 Order name: I\T\D Setup; Complete Time: 01:36 wa Administered Medications: 01:49 Drug: Clindamycin 900 mg Route: IVPB; Infused Over: 30 mins; Site: right forearm; tl2 02:15 Follow up: IV Status: Completed infusion tl2 01:49 Drug: Tylenol 1000 mg Route: PO; tl2 03:00 Follow up: Response: No adverse reaction; Pain is decreased tl2 01:56 Drug: Bupivacaine (0.5 %) 5 ml {Note: placed at bedside for ERP to administer. .} ak1 Volume: 10 ml; Route: Infiltration; Disposition: 06/05/18 04:31 Discharged to Home. Impression: Acute R lower gingival abscess. - Condition is Stable. - Discharge Instructions: Dental Abscess, [id number]. - Prescriptions for Clindamycin HCl 300 mg Oral Capsule - take 1 capsule by ORAL route every 8 hours for 7 days; 21 capsule. Ibuprofen 600 mg Oral Tablet - take 1 tablet by ORAL route every 8 hours As needed take with food; 30 tablet. - Medication Reconciliation Form, Thank You Letter, Antibiotic Education, Prescription Opioid Use form. - Follow up: Private Physician; When: 1 - 2 days; Reason: follow up with your dentist for further evaluation as discussed. - Problem is new. - Symptoms have improved. - Notes: follow up with the dentist as discussed . take medication as prescribed Signatures: Iris Rodriguez RN RN ak1 Isabelle Pires RN RN tl2 Alicia Duncan RN RN ea Appiah, William, MD MD wa Corrections: (The following items were deleted from the chart) 04:50 04:31 06/05/2018 04:31 Discharged to Home. Impression: Acute R lower gingival abscess. tl2 Condition is Stable. Forms are Medication Reconciliation Form, Thank You Letter, Antibiotic Education, Prescription Opioid Use. Follow up: Private Physician; When: 1 - 2 days; Reason: follow up with your dentist for further evaluation as discussed. Problem is new. Symptoms have improved. wa
--- NOTE | 2018-06-05 04:32 | ER ---
Nurse's Notes [facility] Name: Geoff Sanz Age: 32 yrs Sex: Female : 1985 Arrival Date: 06/04/2018 Time: 22:52 Bed 8 Private MD: Diagnosis: Acute R lower gingival abscess Presentation: 06/04 23:29 Presenting complaint: Patient states: Abscess that started two days ago with fever. Pt ea reported she started having swelling to left side of face neck and shoulder. Transition of care: patient was not received from another setting of care. Onset of symptoms was June 04, 2018. Risk Assessment: Do you want to hurt yourself or someone else? Patient reports no desire to harm self or others. Initial Sepsis Screen: Does the patient meet any 2 criteria? No. Patient's initial sepsis screen is negative. Does the patient have a suspected source of infection? No. Patient's initial sepsis screen is negative. Care prior to arrival: None. 23:29 Method Of Arrival: Ambulatory ea 23:29 Acuity: BERNADETTE 3 ea Triage Assessment: 23:34 General: Appears uncomfortable, Behavior is appropriate for age. Pain: Complains of ea pain in right zygomatic area, right cheek and right mandible. 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 - Social history:: Smoking status: Patient/guardian denies using tobacco. - Ebola Screening: : No symptoms or risks identified at this time. - Family history:: not pertinent. - Hospitalizations: : No recent hospitalization is reported. Screenin/12 00:37 Abuse screen: Denies threats or abuse. Nutritional screening: No deficits noted. tl2 Tuberculosis screening: No symptoms or risk factors identified. Fall Risk None identified. Assessment: 00:35 General: Appears in no apparent distress. uncomfortable, Behavior is calm, cooperative, tl2 appropriate for age. Pain: Complains of pain in right cheek and right zygomatic area Pain radiates to right jaw. Neuro: Level of Consciousness is awake, alert, obeys commands, Oriented to person, place, time, situation. Cardiovascular: Denies chest pain. Respiratory: Airway is patent Respiratory effort is even, unlabored, Respiratory pattern is regular, symmetrical. GI: No signs and/or symptoms were reported involving the gastrointestinal system. Derm: Skin is pink, warm \T\ dry. Abscess located on right jaw. Musculoskeletal: Swelling present in right jaw. 01:30 Reassessment: Patient appears in no apparent distress at this time. Patient and/or tl2 family updated on plan of care and expected duration. Pain level reassessed. Patient is alert, oriented x 3, equal unlabored respirations, skin warm/dry/pink. 02:14 Reassessment: Patient appears in no apparent distress at this time. Patient and/or tl2 family updated on plan of care and expected duration. Pain level reassessed. Patient is alert, oriented x 3, equal unlabored respirations, skin warm/dry/pink. awaiting Dr. Jean for I\T\D procedure. 03:45 Reassessment: Dr. Jean at bedside providing nerve block prior to procedure. tl2 04:40 Reassessment: Patient appears in no apparent distress at this time. Patient and/or tl2 family updated on plan of care and expected duration. Pain level reassessed. Patient is alert, oriented x 3, equal unlabored respirations, skin warm/dry/pink. Pt verbalized understanding of discharge instructions, need for follow up with dentist and wound care. Vital Signs: 06/04 23:33 BP 112 / 79; Pulse 103; Resp 18; Temp 99; Pulse Ox 97% ; Weight 55.79 kg; Height 5 ft. ea (152.40 cm); Pain 9/10; 06/05 00:35 BP 136 / 97; Pulse 101; Resp 18; Temp 98.3(O); Pulse Ox 98% on R/A; tl2 02:13 BP 125 / 88; Pulse 98; Resp 18; Pulse Ox 98% on R/A; tl2 04:40 BP 98 / 70; Pulse 90; Resp 18; Pulse Ox 97% on R/A; tl2 06/04 23:33 Body Mass Index 24.02 (55.79 kg, 152.40 cm) ea ED Course: 06/04 22:52 Patient arrived in ED. am2 23:31 Triage completed. ea 06/05 00:31 Iasbelle Pires, RN is Primary Nurse. tl2 00:38 Patient has correct armband on for positive identification. Bed in low position. Call tl2 light in reach. Side rails up X 1. 00:38 Arm band placed on right wrist. tl2 01:07 Manjinder Jean MD is Attending Physician. wa 01:48 Inserted saline lock: 22 gauge in right forearm, using aseptic technique. tl2 04:40 No provider procedures requiring assistance completed. IV discontinued, intact, tl2 bleeding controlled, No redness/swelling at site. Pressure dressing applied. Administered Medications: 01:49 Drug: Clindamycin 900 mg Route: IVPB; Infused Over: 30 mins; Site: right forearm; tl2 02:15 Follow up: IV Status: Completed infusion tl2 01:49 Drug: Tylenol 1000 mg Route: PO; tl2 03:00 Follow up: Response: No adverse reaction; Pain is decreased tl2 01:56 Drug: Bupivacaine (0.5 %) 5 ml {Note: placed at bedside for ERP to administer. .} ak1 Volume: 10 ml; Route: Infiltration; Outcome: 04:31 Discharge ordered by . wa 04:40 Discharged to home ambulatory, with friend. tl2 04:40 Condition: stable 04:40 Discharge instructions given to patient, Instructed on discharge instructions, follow up and referral plans. medication usage, Demonstrated understanding of instructions, follow-up care, medications, Prescriptions given X 2. 04:50 Patient left the ED. tl2 Signatures: Iris Rodriguez RN RN ak1 Isabelle Pires RN RN tl2 Rafaela Fung Elena, RN RN ea Appiah, William, MD MD wa
== END 2018-06-05 04:50 | disposition home or self-care (01) ==
LOC: ER 22:50
PROC: 0C960ZZ Drainage of Lower Gingiva, Open Approach (ICD-10-PCS; principal; 2018-06-04)
DX: K04.7 Periapical abscess without sinus (principal); Z88.1 Allergy status to other antibiotic agents
CPT/HCPCS: 96365; 99283; S0077

== ENCOUNTER 2019-01-18 14:10 | Emergency (ER) | payer OTHER, SELFPAY ==
[2019-01-18 15:08] LABS: Urine Blood 1+ (NEG); Urine Glucose NEGATIVE (NEG); Urine Protein NEGATIVE (NEG); Urine Specific Gravity 1.025 (1.005-1.030); Urine pH 8.5 (5.0-7.0)
--- NOTE | 2019-01-18 15:20 | ER ---
Nurse's Notes [facility] Name: Geoff Sanz Age: 33 yrs Sex: Female : 1985 Arrival Date: 01/18/2019 Time: 14:13 Bed 24 Private MD: Diagnosis: Presentation: 01/18 14:18 Presenting complaint: Patient states: rectal pain, abd pain that started yesterday sv after lifting something heavy. Transition of care: patient was not received from another setting of care. Onset of symptoms was January 17, 2019. Risk Assessment: Do you want to hurt yourself or someone else? Patient reports no desire to harm self or others. Initial Sepsis Screen: Does the patient meet any 2 criteria? No. Patient's initial sepsis screen is negative. Does the patient have a suspected source of infection? No. Patient's initial sepsis screen is negative. Care prior to arrival: None. 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 mg2 Historical: - Allergies: 14:19 Vancomycin; sv - PMHx: 14:19 drug abuse; pelvic inflammatory disease; sv - Immunization history:: Adult Immunizations up to date. - Social history:: Smoking status: Patient/guardian denies using tobacco. - Ebola Screening: : No symptoms or risks identified at this time. Screenin:34 Abuse screen: Denies threats or abuse. Denies injuries from another. Nutritional mg2 screening: No deficits noted. Tuberculosis screening: No symptoms or risk factors identified. Fall Risk None identified. Assessment: 14:34 General: Appears in no apparent distress. comfortable, Behavior is calm, cooperative. mg2 Pain: Complains of pain in abdomen and rectal area Pain does not radiate. Quality of pain is described as aching, Pain began suddenly, last night Is intermittent. Neuro: Level of Consciousness is awake, alert, obeys commands, Oriented to person, place, time, situation. Cardiovascular: Capillary refill < 3 seconds Patient's skin is warm and dry. Respiratory: Airway is patent Respiratory effort is even, unlabored, Respiratory pattern is regular, symmetrical. GI: Reports lower abdominal pain, and rectal pain. EENT: No signs and/or symptoms were reported regarding the EENT system. Derm: Skin is intact, is healthy with good turgor, Skin is pink, warm \\T\\ dry. normal. Musculoskeletal: Circulation, motion, and sensation intact. Capillary refill < 3 seconds. 15:01 Reassessment: i looked for the patient to do the blood work and i found her in [place] [facility] [place] refusing to come back to do the test. she says" I got it i have medicine at home" and she left. provider and charge nurse informed about the incident. patient in stable condition. Vital Signs: 14:19 BP 140 / 101; Pulse 86; Resp 16; Temp 97.5; Pulse Ox 100% ; Weight 57.61 kg; Height 5 sv ft. 0 in. (152.40 cm); 14:19 Body Mass Index 24.80 (57.61 kg, 152.40 cm) sv ED Course: 14:13 Patient arrived in ED. rg4 14:19 Triage completed. sv 14:20 Arm band placed on. sv 14:31 Marc Shaw, RN is Primary Nurse. mg2 14:36 Patient has correct armband on for positive identification. Door closed. Warm blanket mg2 given. 14:38 Adrian Worthy PA is PHCP. [facility] 14:38 Nando Meyers MD is Attending Physician. [facility] 14:45 Served as a general practitioner during rectal exam. mg2 15:03 Patient did not have IV access during this emergency room visit. mg2 Administered Medications: No medications were administered Outcome: 15:03 Eloped from patient exam room, after seeing physician Time discovered patient gone: mg2 January 18, 2019 at 14:50 15:03 Condition: stable 15:20 Patient left the ED. mg2 Signatures: Lian Robbins RN RN Adrian Worthy PA PA jmm Garcia, Rubi [facility] Marc Shaw RN RN mg2 Corrections: (The following items were deleted from the chart) 14:20 14:18 Acuity: BERNADETTE 3 sv
[2019-01-18 15:24] VITALS: BP 140/101; TEMP 97.5; O2SAT 100
--- NOTE | 2019-01-19 15:29 | EDPHYS ---
Physician Documentation [facility] Name: Geoff Sanz Age: 33 yrs Sex: Female : 1985 Arrival Date: 01/18/2019 Time: 14:13 Bed 24 Private MD: ED Physician Nando Meyers HPI: 01/18 15:06 This 33 yrs old Female presents to ER via Ambulatory with complaints of Rectal jmm Pain. 15:06 The patient presents to the emergency department with pain in the rectal area, that is jmm moderate. Onset: The symptoms/episode began/occurred acutely, today. Associate signs and symptoms: Pertinent positives: abdominal pain in the right lower quadrant. The patient has not experienced similar symptoms in the past. The patient has not recently seen a physician. Patient states pain began after heavy lifting. Today. Patient also complains of right sided abdominal pain. Denies vomiting, denies diarrhea. . 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 mg2 Historical: - Allergies: 14:19 Vancomycin; sv - PMHx: 14:19 drug abuse; pelvic inflammatory disease; sv - Immunization history:: Adult Immunizations up to date. - Social history:: Smoking status: Patient/guardian denies using tobacco. - Ebola Screening: : No symptoms or risks identified at this time. ROS: 15:06 Constitutional: Negative for fever, chills, and weight loss, Cardiovascular: Negative jmm for chest pain, palpitations, and edema, Respiratory: Negative for shortness of breath, cough, wheezing, and pleuritic chest pain. 15:06 Abdomen/GI: Positive for abdominal pain, rectal pain. 15:06 All other systems are negative. Exam: 15:06 Constitutional: This is a well developed, well nourished patient who is awake, alert, jmm and in no acute distress. Head/Face: atraumatic. Eyes: EOMI, no conjunctival erythema appreciated ENT: Moist Mucus Membranes Neck: Trachea midline, Supple Chest/axilla: Normal chest wall appearance and motion. Cardiovascular: Regular rate and rhythm. No edema appreciated Respiratory: Normal respirations, no respiratory distress appreciated 15:06 Back: Normal ROM Skin: General appearance color normal MS/ Extremity: Moves all extremities, no obvious deformities appreciated, no edema noted to the lower extremities Neuro: Awake and alert, normal gait 15:06 Abdomen/GI: Inspection: abdomen appears normal, Bowel sounds: normal, Palpation: soft, mild abdominal tenderness, in the right lower quadrant. 15:06 Abdomen/GI: Rectal exam: hemorrhoid(s), external, with inflammation, with pain, without bleeding. 15:06 Back: pain, is absent, ROM is normal. Vital Signs: 14:19 BP 140 / 101; Pulse 86; Resp 16; Temp 97.5; Pulse Ox 100% ; Weight 57.61 kg; Height 5 sv ft. 0 in. (152.40 cm); 14:19 Body Mass Index 24.80 (57.61 kg, 152.40 cm) sv MDM: 14:46 Patient medically screened. [facility] 15:31 Data reviewed: vital signs, nurses notes. ED course: Patient was advised of the need [facility] for ct imaging due to right sided pain. Patient eloped from the ED. . 01/18 14:44 Order name: Urine Dipstick--Ancillary (enter results) 01/18 14:44 Order name: Urine --Ancillary (enter results) 01/18 14:45 Order name: Urine Dipstick-Ancillary [facility] 01/18 14:47 Order name: IV Saline Lock [facility] 01/18 14:47 Order name: Labs collected and sent [facility] Administered Medications: No medications were administered Disposition: 15:31 Co-signature as Attending Physician, Nando Meyers MD I agree with the assessment and kdr plan of care. Disposition: 01/18/19 15:19 Patient left the facility after being seen by provider. - Patient left due to (see nurse's notes). Signatures: Dispatcher [employer] [facility] Lian Robbisn, RN RN Nando Ashford MD MD kdr Mickail, Joel, PA PA [facility] Marc Shaw RN RN mg2 Corrections: (The following items were deleted from the chart) 15:20 15:19 01/18/2019 15:19 Patient left the facility after being seen by provider. Reason mg2 stated they are leaving due to (see nurse's notes). mg2
== END 2019-01-18 15:20 | disposition left against medical advice (07) ==
LOC: ER 14:10
DX: K62.89 Other specified diseases of anus and rectum (principal); R10.9 Unspecified abdominal pain; Z88.3 Allergy status to other anti-infective agents
CPT/HCPCS: 81003; 81025; 99282

== ENCOUNTER 2019-01-29 02:30 | Emergency (ER) | payer OTHER, SELFPAY ==
[2019-01-29] MEDS ORDERED: KETOROLAC 30 MG/ML INJ ONE (03:01)
--- NOTE | 2019-01-29 04:48 | ER ---
Nurse's Notes [facility] Name: Geoff Sanz Age: 33 yrs Sex: Female : 1985 Arrival Date: 01/29/2019 Time: 02:34 Bed 15 Private MD: Diagnosis: Contusion of right back wall of thorax;Contusion of right hip;Contusion of lower back and pelvis Presentation: 01/29 02:54 Presenting complaint: Patient states: approx 3 days ago she fell off of the bed bb injuring her back and right hip pt denies LOC and pt denies loss of bowel or bladder. Transition of care: patient was not received from another setting of care. Onset of symptoms was January 25, 2019. Risk Assessment: Do you want to hurt yourself or someone else? Patient reports no desire to harm self or others. Initial Sepsis Screen: Does the patient meet any 2 criteria? No. Patient's initial sepsis screen is negative. Does the patient have a suspected source of infection? No. Patient's initial sepsis screen is negative. Care prior to arrival: None. 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 - Social history:: Smoking status: Patient/guardian denies using tobacco, Patient/guardian denies using alcohol, street drugs. - Ebola Screening: : No symptoms or risks identified at this time. Screenin:56 Abuse screen: Denies threats or abuse. Nutritional screening: No deficits noted. ea Tuberculosis screening: No symptoms or risk factors identified. Fall Risk Fall in past 12 months (25 points). Assessment: 02:55 General: Appears uncomfortable, Behavior is calm, cooperative, appropriate for age. ea Pain: Complains of pain in buttocks. Neuro: Level of Consciousness is awake, alert, obeys commands, Oriented to person, place, time, situation. Cardiovascular: Patient's skin is warm and dry. Respiratory: Airway is patent Respiratory effort is even, unlabored, Respiratory pattern is regular, symmetrical. Derm: Skin is pink, warm \T\ dry. 03:30 Reassessment: Patient and/or family updated on plan of care and expected duration. Pain ea level reassessed. Patient is alert, oriented x 3, equal unlabored respirations, skin warm/dry/pink. 04:15 Reassessment: Patient and/or family updated on plan of care and expected duration. Pain ea level reassessed. Patient is alert, oriented x 3, equal unlabored respirations, skin warm/dry/pink. Pt taken to radiology. 04:58 Reassessment: Patient and/or family updated on plan of care and expected duration. Pain ea level reassessed. Patient is alert, oriented x 3, equal unlabored respirations, skin warm/dry/pink. Discharge instruction given to patient, verbalized the understanding of instruction. Pt left ED via wheelchair per family, pt tolerating well. Vital Signs: 02:56 BP 122 / 77; Pulse 103; Resp 16 S; Temp 98.3(O); Pulse Ox 98% on R/A; Weight 46.72 kg bb (R); Height 5 ft. 0 in. (152.40 cm) (R); Pain 10/10; 03:01 BP 129 / 89; Pulse 90; Resp 18; Pulse Ox 100% ; ea 04:29 BP 115 / 84; Pulse 94; Resp 18; Pulse Ox 100% ; ea 02:56 Body Mass Index 20.12 (46.72 kg, 152.40 cm) bb ED Course: 02:34 Patient arrived in ED. cf2 02:54 Justin Andrea MD is Attending Physician. tw4 02:55 Alicia Duncan RN is Primary Nurse. ea 02:55 Triage completed. bb 02:57 Arm band placed on right wrist. Patient placed in an exam room, on a stretcher, on ea pulse oximetry. 02:57 Patient has correct armband on for positive identification. Bed in low position. Call ea light in reach. Side rails up X2. Adult w/ patient. 04:50 Hip Left 1 View XRAY In Process Unspecified. EDMS 04:50 Ribs Left XRAY In Process Unspecified. EDMS 04:59 No provider procedures requiring assistance completed. Patient did not have IV access ea during this emergency room visit. Administered Medications: 03:06 Drug: TORadol 60 mg {Note: 30 mg to right and left deltoid.} Route: IM; Site: Other; ea 04:30 Follow up: Response: No adverse reaction; Pain is decreased watson Outcome: 04:47 Discharge ordered by . mauricio 04:59 Discharged to home via wheelchair, with family. ea 04:59 Condition: stable 04:59 Discharge instructions given to patient, Instructed on discharge instructions, follow up and referral plans. medication usage, Demonstrated understanding of instructions, follow-up care, medications, Prescriptions given X 2. 05:01 Patient left the ED. ea Signatures: Dispatcher [employer] EDDeidra Wiley RN RN Alicia Patterson RN RN ea Wadley, Terrence, MD MD tw Michelel Hoffman 2
--- NOTE | 2019-01-29 04:48 | EDPHYS ---
Physician Documentation [facility] Name: Geoff Sanz Age: 33 yrs Sex: Female : 1985 Arrival Date: 01/29/2019 Time: 02:34 Bed 15 Private MD: ED Physician Justin Andrea HPI: 01/29 03:09 This 33 yrs old Female presents to ER via Wheelchair with complaints of Back tw4 Pain, Fall Injury, Hip Pain, Abdominal Cramping. 03:09 Details of fall: The patient fell from a height, off furniture, approximately 3 feet. tw4 Onset: The symptoms/episode began/occurred 3 day(s) ago. Associated injuries: The patient sustained right hip. Severity of symptoms: At their worst the symptoms were moderate, in the emergency department the symptoms. The patient has not experienced similar symptoms in the past. DEVELOPMENT SPEC: 02:56 LMP 01/29/2019 bb Historical: - Allergies: 02:56 Vancomycin; bb - Home Meds: 02:56 None [Active]; bb - PMHx: 02:56 drug abuse; pelvic inflammatory disease; bb - PSHx: 02:56 None; bb - Immunization history:: Adult Immunizations up to date. - Social history:: Smoking status: Patient/guardian denies using tobacco, Patient/guardian denies using alcohol, street drugs. - Ebola Screening: : No symptoms or risks identified at this time. ROS: 03:09 Constitutional: Negative for fever, chills, and weight loss, Eyes: Negative for injury, tw4 pain, redness, and discharge, Cardiovascular: Negative for chest pain, palpitations, and edema, Respiratory: Negative for shortness of breath, cough, wheezing, and pleuritic chest pain, Abdomen/GI: Negative for abdominal pain, nausea, vomiting, diarrhea, and constipation, Back: Negative for injury and pain. 03:09 MS/extremity: Positive for injury or acute deformity, decreased range of motion, deformity, of the right hip. Exam: 03:09 Constitutional: This is a well developed, well nourished patient who is awake, alert, tw4 and in no acute distress. Head/Face: Normocephalic, atraumatic. Chest/axilla: Normal chest wall appearance and motion. Nontender with no deformity. No lesions are appreciated. Cardiovascular: Regular rate and rhythm with a normal S1 and S2. No gallops, murmurs, or rubs. Normal PMI, no JVD. No pulse deficits. Respiratory: Lungs have equal breath sounds bilaterally, clear to auscultation and percussion. No rales, rhonchi or wheezes noted. No increased work of breathing, no retractions or nasal flaring. Abdomen/GI: Soft, non-tender, with normal bowel sounds. No distension or tympany. No guarding or rebound. No evidence of tenderness throughout. Neuro: Awake and alert, GCS 15, oriented to person, place, time, and situation. Cranial nerves II-XII grossly intact. Motor strength 5/5 in all extremities. Sensory grossly intact. Cerebellar exam normal. Normal gait. 03:09 Musculoskeletal/extremity: Extremities: noted in the right hip: Vital Signs: 02:56 BP 122 / 77; Pulse 103; Resp 16 S; Temp 98.3(O); Pulse Ox 98% on R/A; Weight 46.72 kg bb (R); Height 5 ft. 0 in. (152.40 cm) (R); Pain 10/10; 03:01 BP 129 / 89; Pulse 90; Resp 18; Pulse Ox 100% ; ea 04:29 BP 115 / 84; Pulse 94; Resp 18; Pulse Ox 100% ; ea 02:56 Body Mass Index 20.12 (46.72 kg, 152.40 cm) bb MDM: 02:54 Patient medically screened. tw4 06:38 Data reviewed: vital signs, nurses notes. Test interpretation: by ED physician or tw4 midlevel provider: plain radiologic studies. Counseling: I had a detailed discussion with the patient and/or guardian regarding: radiology results. Medication response: Toradol relieved patient's pain. The symptoms have resolved. Response to treatment: the patient's symptoms have markedly improved after treatment, and as a result, I will discharge patient. Special discussion: I discussed with the patient/guardian in detail that at this point there is no indication for admission to the hospital. It is understood, however, that if the symptoms persist or worsen the patient needs to return immediately for re-evaluation. 01/29 03:02 Order name: Hip Left 1 View XRAY tw4 01/29 03:02 Order name: Ribs Left XRAY tw4 Administered Medications: 03:06 Drug: TORadol 60 mg {Note: 30 mg to right and left deltoid.} Route: IM; Site: Other; 04:30 Follow up: Response: No adverse reaction; Pain is decreased ea Disposition: 01/29/19 04:47 Discharged to Home. Impression: Contusion of right back wall of thorax, Contusion of right hip, Contusion of lower back and pelvis. - Condition is Stable. - Discharge Instructions: Contusion, [id number]. - Prescriptions for Ibuprofen 800 mg Oral Tablet - take 1 tablet by ORAL route every 8 hours As needed take with food; 30 tablet. Tramadol 50 mg Oral Tablet - take 1 tablet by ORAL route every 8 hours as needed; 12 tablet. - Medication Reconciliation Form, Thank You Letter, Antibiotic Education, Prescription Opioid Use form. - Follow up: Private Physician; When: Upon discharge from the Emergency Department; Reason: Recheck today's complaints, Continuance of care. - Problem is new. - Symptoms have improved. Signatures: Dispatcher [employer] EDDeidra Wiley RN RN bb Antunez, Elena, RN RN ea Wadley, Terrence, MD MD tw4 Corrections: (The following items were deleted from the chart) 05:01 04:47 01/29/2019 04:47 Discharged to Home. Impression: Contusion of right back wall of ea thorax; Contusion of right hip; Contusion of lower back and pelvis. Condition is Stable. Forms are Medication Reconciliation Form, Thank You Letter, Antibiotic Education, Prescription Opioid Use. Follow up: Private Physician; When: Upon discharge from the Emergency Department; Reason: Recheck today's complaints, Continuance of care. Problem is new. Symptoms have improved. tw4
[2019-01-29 05:07] VITALS: TEMP 98.3
[2019-01-29 05:08] VITALS: O2SAT 100
[2019-01-29 05:10] VITALS: BP 115/84
--- NOTE | 2019-01-29 05:51 | RAD REPORT ---
EXAM DESCRIPTION: RAD - Hip Left 1 View - 01/29/2019 4:50 am CLINICAL HISTORY: Left hip pain status post injury FINDINGS: No fracture or dislocation is seen.
--- NOTE | 2019-01-29 05:55 | RAD REPORT ---
EXAM DESCRIPTION: RAD - Ribs Left - 01/29/2019 4:50 am CLINICAL HISTORY: Rib pain FINDINGS: Exam description is left rib series. However, a three-view series of the right ribs obtain ed. A right rib fracture is not seen. Limited evaluation of portions of the left ribs do not demonstrate a fracture. If the patient does have left sided rib pain then left rib series should be obtained at n o additional cost
--- OUTSIDE RECORDS SUMMARY | 2019-02-03 22:11 | XMS REPORT ---
:1985 [facility] Address [address] [place] [address] [address] [place] [address] Care Team Providers Name Role Phone Unavailable Unavailable Unavailable Problems This patient has no known problems. Allergies, Adverse Reactions, Alerts This patient has no known allergies or adverse reactions. Medications This patient has no known medications.
== END 2019-01-29 05:01 | disposition home or self-care (01) ==
LOC: ER 02:30
DX: S70.01XA Contusion of right hip, initial encounter (principal); S30.0XXA Contusion of lower back and pelvis, initial encounter; S20.221A Contusion of right back wall of thorax, initial encounter; W08.XXXA Fall from other furniture, initial encounter; Y93.9 Activity, unspecified; Y92.9 Unspecified place or not applicable; Z88.1 Allergy status to other antibiotic agents
CPT/HCPCS: 96372; 99284

== ENCOUNTER 2019-02-13 09:34 | Emergency (ER) | payer OTHER, SELFPAY ==
--- OUTSIDE RECORDS SUMMARY | 2019-02-13 09:36 | XMS REPORT ---
:1985 [facility] Address [address] [place] [address] [address] [place] [address] Care Team Providers Name Role Phone Unavailable Unavailable Unavailable Problems This patient has no known problems. Allergies, Adverse Reactions, Alerts This patient has no known allergies or adverse reactions. Medications This patient has no known medications.
[2019-02-13 11:00] LABS: Urine Blood NEGATIVE (NEG); Urine Glucose NEGATIVE (NEG); Urine Protein NEGATIVE (NEG); Urine Specific Gravity 1.025 (1.005-1.030)
[2019-02-13] MEDS ORDERED: ONDANSETRON 4 MG/2 ML VIAL ONE (11:03)
[2019-02-13] MEDS ORDERED: FENTANYL CITR 100 MCG/2 ML ONE ×2 (11:03→14:13)
[2019-02-13 11:11] LABS: Urine Bacteria 20-50 /HPF (<20); Urine RBC <5 /HPF (NONE SEEN)
[2019-02-13 11:13] LABS: Urine Culture Reflex Order NOT NEEDED
[2019-02-13 11:39] LABS: Absolute Lymphocytes (CBC) 2.1 K/uL (0.7-4.9); Basophils % 0.4 % (0-1.3); Lymphocytes % 40.2 % (15.3-44.8); MPV 8.9 fL (7.6-11.3); RBC Red Blood Cell Count 3.95 M/uL (3.86-4.86)
[2019-02-13 11:59] LABS: ALT/SGPT 14 U/L (12-78); AST/SGOT 9 U/L (15-37); Albumin 3.7 g/dL (3.4-5.0); Alkaline Phosphatase 65 U/L (45-117); BUN Blood Urea Nitrogen 11 mg/dL (7-18); Bicarbonate 30 mmol/L (21-32); Bilirubin Direct 0.1 mg/dL (0-0.2); Bilirubin Total 0.2 mg/dL (0.2-1.0); Glucose Level 65 mg/dL (74-106); Potassium 3.7 mmol/L (3.5-5.1); Protein, Total 6.9 g/dL (6.4-8.2); Sodium Level 142 mmol/L (136-145)
--- NOTE | 2019-02-13 12:45 | RAD REPORT ---
EXAM DESCRIPTION: CTAbdomen Pelvis W Contrast - 02/13/2019 12:26 pm CLINICAL HISTORY: Abdominal pain. ABD PAIN COMPARISON: CT ABD PELVIS W CONTRAST dated 02/04/2015; CT ABD PELVIS W CONTRAST dated 07/16/2012 TECHNIQUE: Biphasic CT imaging of the abdomen and pelvis was performed with 100 ml non-ionic IV cont rast. All CT scans are performed using dose optimization technique as appropriate and may include automated exposure control or mA/KV adjustment according to patient size. FINDINGS: The lung bases are clear. The liver, spleen, pancreas, adrenal glands and kidneys are within normal limits. No bowel obstruction, free air, free fluid or abscess. The appendix is normal. No evidence of signi ficant lymphadenopathy. No suspicious bony findings. Somewhat edematous appearance to the gynecologic structures is seen. IMPRESSION: A mild edematous appearance to the gynecologic structures is seen. Advise clinical corre lation for the possibility pelvic inflammatory disease.
--- NOTE | 2019-02-13 13:17 | ER ---
Nurse's Notes [facility] Name: Geoff Sanz Age: 33 yrs Sex: Female : 1985 Arrival Date: 02/13/2019 Time: 09:36 Bed 17 Private MD: Diagnosis: Female pelvic inflammatory disease, unspecified Presentation: 02/13 09:40 Presenting complaint: Patient states: R PELVIC PAIN x "YEARS", RECENT EXPOSURE TO bp GONORRHEA. Transition of care: patient was not received from another setting of care. Onset of symptoms is unknown. Risk Assessment: Do you want to hurt yourself or someone else? Patient reports no desire to harm self or others. Initial Sepsis Screen: Does the patient meet any 2 criteria? No. Patient's initial sepsis screen is negative. Does the patient have a suspected source of infection? No. Patient's initial sepsis screen is negative. Care prior to arrival: None. 09:40 Method Of Arrival: Ambulatory bp 09:40 Acuity: BERNADETTE 3 bp Triage Assessment: 09:52 General: Appears in no apparent distress. comfortable, Behavior is cooperative, bp appropriate for age, anxious. Pain: Complains of pain in pelvis. EENT: No deficits noted. Neuro: No deficits noted. Cardiovascular: No deficits noted. Respiratory: No deficits noted. GI: Reports lower abdominal pain. : Reports pain in suprapubic area. Derm: No deficits noted. Musculoskeletal: No deficits noted. 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 - Social history:: Smoking status: Patient uses tobacco products, unknown amount. - Ebola Screening: : No symptoms or risks identified at this time. Screenin:53 Abuse screen: Denies threats or abuse. Denies injuries from another. Nutritional bp screening: No deficits noted. Tuberculosis screening: No symptoms or risk factors identified. Fall Risk None identified. Assessment: 09:53 General: SEE TRIAGE NOTE. bp 11:15 Reassessment: Patient appears in no apparent distress at this time. Patient and/or hb family updated on plan of care and expected duration. Pain level reassessed. Patient is alert, oriented x 3, equal unlabored respirations, skin warm/dry/pink. 11:15 Reassessment: Patient appears in no apparent distress at this time. pt reports feeling sg warm and flush, a cold compress has been applied, pt reports feeling better. 12:15 Reassessment: Patient appears in no apparent distress at this time. Patient and/or hb family updated on plan of care and expected duration. Pain level reassessed. Patient is alert, oriented x 3, equal unlabored respirations, skin warm/dry/pink. 13:00 Reassessment: Patient appears in no apparent distress at this time. Patient and/or hb family updated on plan of care and expected duration. Pain level reassessed. Patient is alert, oriented x 3, equal unlabored respirations, skin warm/dry/pink. 14:00 Reassessment: Patient appears in no apparent distress at this time. Patient and/or hb family updated on plan of care and expected duration. Pain level reassessed. Patient is alert, oriented x 3, equal unlabored respirations, skin warm/dry/pink. Vital Signs: 09:52 BP 97 / 57; Pulse 82; Resp 18; Temp 97.8; Pulse Ox 100% ; Weight 57.15 kg; Height 5 ft. bp (152.40 cm); 11:00 BP 98 / 69; Pulse 88; Resp 15; Pulse Ox 100% on R/A; hb 12:00 BP 106 / 70; Pulse 79; Resp 15; Pulse Ox 100% on R/A; hb 13:00 BP 102 / 72; Pulse 85; Resp 14; Pulse Ox 100% on R/A; hb 14:00 BP 112 / 68; Pulse 80; Resp 15; Temp 98.2; Pulse Ox 100% on R/A; Pain 8/10; hb 09:52 Body Mass Index 24.61 (57.15 kg, 152.40 cm) bp ED Course: 09:36 Patient arrived in ED. as 09:40 Meena Garza, RN is Primary Nurse. hb 09:50 Triage completed. bp 09:52 Arm band placed on. bp 09:53 Patient has correct armband on for positive identification. Bed in low position. Call bp light in reach. Side rails up X2. Adult w/ patient. 09:59 Gatito Sanches PA is PHCP. jr8 09:59 Abran Carpio MD is Attending Physician. jr8 10:58 Urine Microscopic Only Sent. hb 10:58 Urine --Ancillary (enter results) Sent. hb 10:59 Urine Dipstick--Ancillary (enter results) Sent. hb 11:21 Inserted saline lock: 20 gauge in right antecubital area, using aseptic technique. hb Blood collected. 11:42 Missed attempt(s): 22 gauge in left wrist. Bleeding controlled, band aid applied, sg catheter tip intact. 12:28 CT Abd/Pelvis - IV Contrast Only In Process Unspecified. EDMS 13:51 GC (GONORR/CHLAMYDIA) Probe Sent. 3 13:51 Wet Prep Sent. 3 Administered Medications: 11:24 Drug: fentaNYL (PF) 50 mcg {Note: RASS 0.} Route: IVP; Site: right antecubital; hb 12:00 Follow up: Response: No adverse reaction hb 11:24 Drug: Zofran 4 mg Route: IVP; Site: right antecubital; hb 12:00 Follow up: Response: No adverse reaction hb 13:30 Drug: Rocephin (cefTRIAXone) 250 mg Route: IM; Site: right deltoid; hb 14:20 Follow up: Response: No adverse reaction hb 13:30 Drug: Zithromax 1 grams Route: PO; hb 14:20 Follow up: Response: No adverse reaction hb 14:19 Drug: fentaNYL (PF) 50 mcg Route: IVP; Site: right antecubital; hb 14:21 Follow up: Response: Medication administered at discharge. hb Outcome: 13:16 Discharge ordered by . jr8 14:23 Patient left the ED. hb Signatures: Dispatcher [employer] EDMS Malachi Hidalgo RN RN Gerda Andrews Josh, PA PA jr8 Meena Garza, LAURIE RN Kelli Weathers [facility] Paulo Taveras RN RN bp
--- NOTE | 2019-02-13 13:17 | EDPHYS ---
Physician Documentation [facility] Name: Geoff Sanz Age: 33 yrs Sex: Female : 1985 Arrival Date: 02/13/2019 Time: 09:36 Bed 17 Private MD: ED Physician Abran Carpio HPI: 02/13 11:09 This 33 yrs old Female presents to ER via Ambulatory with complaints of jr8 Abdominal Pain. 11:09 The patient presents with abdominal pain right lateral abdomen. Onset: The jr8 symptoms/episode began/occurred gradually, 2 week(s) ago, and became worse and became persistent. The symptoms do not radiate. Associated signs and symptoms: none. The symptoms are described as stabbing. Modifying factors: The symptoms are alleviated by nothing, the symptoms are aggravated by nothing. Severity of pain: At its worst the pain was moderate in the emergency department the pain is unchanged. The patient has experienced similar episodes in the past, multiple times. The patient has not recently seen a physician. Patient stated that she has had abdominal pain for over a year now. Recently diagnosed with endometriosis. Stated that she was started on control. Has been taking tramadol and ibuprofen for pain but recently pain has worsened. Boyfriend also recently diagnosed with gonorrhea. Patient denies vaginal or urinary complaints at this time . 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 - Social history:: Smoking status: Patient uses tobacco products, unknown amount. - Ebola Screening: : No symptoms or risks identified at this time. ROS: 11:12 Eyes: Negative for injury, pain, redness, and discharge, ENT: Negative for injury, jr8 pain, and discharge, Neck: Negative for injury, pain, and swelling, Cardiovascular: Negative for chest pain, palpitations, and edema, Respiratory: Negative for shortness of breath, cough, wheezing, and pleuritic chest pain, Back: Negative for injury and pain, MS/Extremity: Negative for injury and deformity, Skin: Negative for injury, rash, and discoloration, Neuro: Negative for headache, weakness, numbness, tingling, and seizure. 11:12 Abdomen/GI: Positive for abdominal pain, Negative for nausea, vomiting, and diarrhea, abdominal distension, anorexia, dysphagia, hematemesis, black/tarry stool, rectal pain, rectal bleeding, bowel incontinence, flatulence. Exam: 11:12 Eyes: Pupils equal round and reactive to light, extra-ocular motions intact. Lids and jr8 lashes normal. Conjunctiva and sclera are non-icteric and not injected. Cornea within normal limits. Periorbital areas with no swelling, redness, or edema. ENT: Nares patent. No nasal discharge, no septal abnormalities noted. Tympanic membranes are normal and external auditory canals are clear. Oropharynx with no redness, swelling, or masses, exudates, or evidence of obstruction, uvula midline. Mucous membranes moist. Neck: Trachea midline, no thyromegaly or masses palpated, and no cervical lymphadenopathy. Supple, full range of motion without nuchal rigidity, or vertebral point tenderness. No Meningismus. Cardiovascular: Regular rate and rhythm with a normal S1 and S2. No gallops, murmurs, or rubs. Normal PMI, no JVD. No pulse deficits. Respiratory: Lungs have equal breath sounds bilaterally, clear to auscultation and percussion. No rales, rhonchi or wheezes noted. No increased work of breathing, no retractions or nasal flaring. Back: No spinal tenderness. No costovertebral tenderness. Full range of motion. Skin: Warm, dry with normal turgor. Normal color with no rashes, no lesions, and no evidence of cellulitis. MS/ Extremity: Pulses equal, no cyanosis. Neurovascular intact. Full, normal range of motion. Neuro: Awake and alert, GCS 15, oriented to person, place, time, and situation. Cranial nerves II-XII grossly intact. Motor strength 5/5 in all extremities. Sensory grossly intact. Cerebellar exam normal. Normal gait. 11:12 Abdomen/GI: Inspection: abdomen appears normal, Bowel sounds: active, all quadrants, Palpation: soft, in all quadrants, mild abdominal tenderness, in the anterior aspect of right lateral abdomen, mass, is not appreciated, rebound tenderness, is not appreciated, voluntary guarding, is not appreciated, involuntary guarding, is not appreciated, no appreciated organomegaly, Indicators: McBurney's point is not tender, Hickey's sign is negative, Rovsing's sign is negative, Liver: tenderness, is not appreciated. 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 Vital Signs: 09:52 BP 97 / 57; Pulse 82; Resp 18; Temp 97.8; Pulse Ox 100% ; Weight 57.15 kg; Height 5 ft. bp (152.40 cm); 11:00 BP 98 / 69; Pulse 88; Resp 15; Pulse Ox 100% on R/A; hb 12:00 BP 106 / 70; Pulse 79; Resp 15; Pulse Ox 100% on R/A; hb 13:00 BP 102 / 72; Pulse 85; Resp 14; Pulse Ox 100% on R/A; hb 14:00 BP 112 / 68; Pulse 80; Resp 15; Temp 98.2; Pulse Ox 100% on R/A; Pain 8/10; hb 09:52 Body Mass Index 24.61 (57.15 kg, 152.40 cm) bp MDM: 10:05 Patient medically screened. jr8 13:16 Data reviewed: vital signs, nurses notes, lab test result(s), radiologic studies, CT jr8 scan. Data interpreted: Pulse oximetry: on room air is 100 %. Interpretation: normal. Counseling: I had a detailed discussion with the patient and/or guardian regarding: the historical points, exam findings, and any diagnostic results supporting the discharge/admit diagnosis, lab results, radiology results, the need for outpatient follow up, a family practitioner, an OB/Gyne specialist, to return to the emergency department if symptoms worsen or persist or if there are any questions or concerns that arise at home. 02/13 10:30 Order name: Urine Dipstick--Ancillary (enter results); Complete Time: 11: bd 02/13 10:30 Order name: Urine --Ancillary (enter results); Complete Time: 11: bd 02/13 10:30 Order name: Urine Microscopic Only; Complete Time: 11: bd 02/13 10:46 Order name: Basic Metabolic Panel; Complete Time: 12:03 jr8 11/20 10:46 Order name: CBC with Diff; Complete Time: 11:50 [facility] 02/13 10:46 Order name: Creatinine for Radiology; Complete Time: 12:03 [facility] 02/13 10:46 Order name: Hepatic Function; Complete Time: 12:03 [facility] 02/13 10:46 Order name: CT Abd/Pelvis - IV Contrast Only; Complete Time: 13:14 [facility] 02/13 13:16 Order name: Wet Prep; Complete Time: 18:41 [facility] 02/13 13:16 Order name: GC (GONORR/CHLAMYDIA) Probe [facility] 02/13 10:46 Order name: IV Saline Lock; Complete Time: 11:21 [facility] 02/13 10:46 Order name: Labs collected and sent; Complete Time: 11: [facility] 02/13 13:15 Order name: Pelvic Exam Setup [facility] Administered Medications: 11:24 Drug: fentaNYL (PF) 50 mcg {Note: RASS 0.} Route: IVP; Site: right antecubital; hb 12:00 Follow up: Response: No adverse reaction hb 11:24 Drug: Zofran 4 mg Route: IVP; Site: right antecubital; hb 12:00 Follow up: Response: No adverse reaction hb 13:30 Drug: Rocephin (cefTRIAXone) 250 mg Route: IM; Site: right deltoid; hb 14:20 Follow up: Response: No adverse reaction hb 13:30 Drug: Zithromax 1 grams Route: PO; hb 14:20 Follow up: Response: No adverse reaction hb 14:19 Drug: fentaNYL (PF) 50 mcg Route: IVP; Site: right antecubital; hb 14:21 Follow up: Response: Medication administered at discharge. hb Disposition: 17:51 Co-signature as Attending Physician, Abran Carpio MD. ma2 Disposition: 02/13/19 13:16 Discharged to Home. Impression: Female pelvic inflammatory disease, unspecified. - Condition is Stable. - Discharge Instructions: Pelvic Inflammatory Disease. - Prescriptions for Doxycycline Monohydrate 100 mg Oral Tablet - take 1 tablet by ORAL route every 12 hours for 14 days; 28 tablet. Tylenol- Codeine #3 300-30 mg Oral Tablet - take 2 tablets by ORAL route every 6 hours As needed; 12 tablet. - Medication Reconciliation Form, Thank You Letter, Antibiotic Education, Prescription Opioid Use form. - Follow up: Private Physician; When: 2 - 3 days; Reason: Recheck today's complaints, Continuance of care, Re-evaluation by your physician. - Problem is new. - Symptoms have improved. Signatures: Dispatcher [employer] EDGatito aZldivar PA PA jr8 Meena Garza, RN RN Paulo Hensley RN RN Abran White MD MD ma2 Corrections: (The following items were deleted from the chart) 14:23 13:16 02/13/2019 13:16 Discharged to Home. Impression: Female pelvic inflammatory hb disease, unspecified. Condition is Stable. Forms are Medication Reconciliation Form, Thank You Letter, Antibiotic Education, Prescription Opioid Use. Follow up: Private Physician; When: 2 - 3 days; Reason: Recheck today's complaints, Continuance of care, Re-evaluation by your physician. Problem is new. Symptoms have improved. jr8
[2019-02-13] MEDS ORDERED: AZITHROMYCIN 250 MG TAB ONE (13:24)
[2019-02-13] MEDS ORDERED: CEFTRIAXONE 250 MG/VIAL ONE (13:24)
[2019-02-13] MEDS ORDERED: WATER FOR INJ,STERILE 10 ML ONE (13:24)
[2019-02-13 14:37] VITALS: O2SAT 100
[2019-02-13 14:43] VITALS: BP 112/68; TEMP 98.2
== END 2019-02-13 14:23 | disposition home or self-care (01) ==
LOC: ER 09:34
DX: N73.9 Female pelvic inflammatory disease, unspecified (principal); Z72.0 Tobacco use; Z88.3 Allergy status to other anti-infective agents
CPT/HCPCS: 36415; 74177; 80048; 80076; 81003; 81015; 81025; 85025; 87210; 87490; 87590; J0696; J2405; J3010; Q9967

== ENCOUNTER 2019-05-28 19:30 | Emergency (ER) | payer SELFPAY ==
--- OUTSIDE RECORDS SUMMARY | 2019-05-28 19:33 | XMS REPORT ---
:1985 [facility] [address] [place] [address] [address] [place] [address] Care Team Providers Name Role Phone Unavailable Unavailable Unavailable Problems This patient has no known problems. Allergies, Adverse Reactions, Alerts This patient has no known allergies or adverse reactions. Medications This patient has no known medications.
[2019-05-28 21:50] LABS: Absolute Lymphocytes (CBC) 1.6 K/uL (0.7-4.9); Basophils % 0.3 % (0-1.3); Hematocrit 38.2 % (36.0-45.0); Lymphocytes % 26.4 % (15.3-44.8); MPV 8.4 fL (7.6-11.3); RBC Red Blood Cell Count 4.02 M/uL (3.86-4.86)
[2019-05-28 21:56] LABS: Protime INR 0.96
[2019-05-28 21:59] LABS: BUN Blood Urea Nitrogen 7 mg/dL (7-18); Bicarbonate 27 mmol/L (21-32); Glucose Level 80 mg/dL (74-106); Potassium 3.1 mmol/L (3.5-5.1); Sodium Level 139 mmol/L (136-145)
--- NOTE | 2019-05-28 22:17 | ER ---
Nurse's Notes [facility] Name: Geoff Sanz Age: 33 yrs Sex: Female : 1985 Arrival Date: 05/28/2019 Time: 19:33 Bed 25 Private MD: Diagnosis: Pain in right leg Presentation: 05/27 19:48 Chief complaint: Patient states: 4 days ago, I woke up and there were bruises on my R ca1 leg up to my rib area. Denies injury or fall. C/o leg pains. 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 Coronavirus screen: The patient has NOT traveled to [place] in the past 14 days. The patient has NOT had contact with known and/or suspected case of Coronavirus. Ebola Screen: Patient negative for fever greater than or equal to 101.5 degrees Fahrenheit, and additional compatible Ebola Virus Disease symptoms Patient denies exposure to infectious person. Patient denies travel to an Ebola-affected area in the 21 days before illness onset. No symptoms or risks identified at this time. Initial Sepsis Screen: Does the patient meet any 2 criteria? No. Patient's initial sepsis screen is negative. Does the patient have a suspected source of infection? No. Patient's initial sepsis screen is negative. Risk Assessment: Do you want to hurt yourself or someone else? Patient reports no desire to harm self or others. Onset of symptoms was May 28, 2019. 19:48 Method Of Arrival: Ambulatory ca1 19:48 Acuity: BERNADETTE 4 ca1 Triage Assessment: 20:29 General: Appears in no apparent distress. uncomfortable, to have been drinking. vc Behavior is calm, cooperative, appropriate for age. General: Behavior is appropriate for age, agitated, anxious. Pain: Complains of pain in right quadriceps. EENT: No signs and/or symptoms were reported regarding the EENT system. 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 - Social history:: Smoking status: Reported history of juuling and/or vaping. Screenin:28 Abuse screen: Patient denies, bruising from unknown source. Nutritional screening: No vc deficits noted. Tuberculosis screening: No symptoms or risk factors identified. Fall Risk None identified. Assessment: 20:26 Reassessment: Patient refuses to give urine. She states she does not need pain vc medication and has her tubes so does not need a test. 20:33 General: Appears in no apparent distress. uncomfortable, Behavior is agitated, anxious, vc inappropriate for age. Pain: Complains of pain in right quadriceps. Neuro: Level of Consciousness is awake, alert, Oriented to person, place, time, situation. 20:34 Cardiovascular: Capillary refill < 3 seconds Patient's skin is warm and dry. vc Respiratory: No deficits noted. GI: No deficits noted. : No deficits noted. EENT: No deficits noted. Derm: Bruising that is brown. Musculoskeletal: Circulation, motion, and sensation intact. 21:30 Reassessment: Patient is alert, oriented x 3, equal unlabored respirations, skin vc warm/dry/pink. Patient is alert/active/playful, equal unlabored respirations, skin warm/dry/pink. Patient states symptoms have not improved. 21:30 Reassessment: Patient is alert, oriented x 3, equal unlabored respirations, skin vc warm/dry/pink. Patient is alert/active/playful, equal unlabored respirations, skin warm/dry/pink. Patient states symptoms have not improved. 22:31 Reassessment:. vc Vital Signs: 19:48 BP 134 / 96; Pulse 92; Resp 16 S; Temp 98.3(O); Pulse Ox 100% on R/A; Weight 55.79 kg ca1 (R); Height 5 ft. (152.40 cm); 22:00 BP 128 / 90; Pulse 88; Resp 16; Pulse Ox 100% on R/A; vc 19:48 Body Mass Index 24.02 (55.79 kg, 152.40 cm) ca1 ED Course: 19:33 Patient arrived in ED. jg7 19:51 Triage completed. ca1 19:53 Arm band placed on right wrist. ca1 19:54 Armando Schneider PA is PHCP. cp 19:54 Tee Hernandez MD is Attending Physician. cp 19:55 Marjan Dallas, RN is Primary Nurse. vc 20:30 Missed attempt(s): 20 gauge in right antecubital area. Bleeding controlled, band aid ca1 applied, catheter tip intact. 20:33 Patient has correct armband on for positive identification. Placed in gown. Bed in low vc position. Call light in reach. 20:37 Missed attempt(s): 20 gauge in left antecubital area. Bleeding controlled, band aid ca1 applied, catheter tip intact. 20:47 XRAY Femur RIGHT In Process Unspecified. EDMS 21:05 US Extremity Venous Unilateral Ltd In Process Unspecified. EDMS 21:23 Missed attempt(s): 22 gauge in left antecubital area. Bleeding controlled, band aid ds4 applied, catheter tip intact. 21:25 Inserted saline lock: 22 gauge in right antecubital area, using aseptic technique. mt Blood collected. 22:27 No provider procedures requiring assistance completed. Patient did not have IV access vc during this emergency room visit. intact, bleeding controlled, No redness/swelling at site. Pressure dressing applied. Administered Medications: 22:33 Not Given (Patient Refused): Tylenol 650 mg PO once vc 22:33 Not Given (Patient Refused): Ibuprofen 800 mg PO once; if test negative vc Outcome: 22:17 Discharge ordered by MD. cp 22:27 Discharged to home ambulatory. vc 22:27 Condition: good 22:27 Discharge instructions given to patient, Instructed on discharge instructions, follow up and referral plans. medication usage, Demonstrated understanding of instructions, follow-up care, medications, Prescriptions given X 1. 22:32 Patient left the ED. vc Signatures: Dispatcher [employer] EDKS Pierre Ramos ds4 Armando Schneider PA PA cp Thompson, Moriah vt Charis Aponte RN RN ca1 Cass Castillo jg7 Marjna Dallas, LAURIE RN vc
--- NOTE | 2019-05-28 22:18 | EDPHYS ---
Physician Documentation [facility] Name: Geoff Sanz Age: 33 yrs Sex: Female : 1985 Arrival Date: 05/28/2019 Time: 19:33 Bed 25 Private MD: ED Physician Tee Hernandez HPI: 05/27 20:20 This 33 yrs old Female presents to ER via Ambulatory with complaints of Leg cp Pain, Leg Swelling. 20:20 The patient presents with pain, that is acute, tenderness, bruising. The complaints cp affect the lateral aspect of right thigh and right quadriceps. Context: resulted from an unknown cause, the patient can fully bear weight, the patient is able to ambulate, with mild difficulty, Problem is a result from a previous injury: No. Onset: The symptoms/episode began/occurred 4 day(s) ago. 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 - Social history:: Smoking status: Reported history of juuling and/or vaping. ROS: 20:25 Constitutional: Negative for body aches, chills, fever. cp 20:25 Eyes: Negative for injury, pain, redness, and discharge. cp 20:25 ENT: Negative for drainage from ear(s), ear pain, sore throat, difficulty swallowing, difficulty handling secretions. 20:25 Respiratory: Negative for cough, shortness of breath, wheezing. 20:25 Abdomen/GI: Negative for abdominal pain, nausea, vomiting, and diarrhea. 20:25 Back: Negative for pain at rest, pain with movement, radiated pain. 20:25 MS/extremity: Positive for ecchymosis, pain, of the right leg, Negative for deformity. 20:25 Skin: Negative for rash. 20:25 All other systems are negative. Exam: 20:30 Constitutional: The patient appears in no acute distress, alert, awake, non-toxic, well cp developed, well nourished. 20:30 Head/Face: Normocephalic, atraumatic. cp 20:30 Eyes: Periorbital structures: appear normal, Conjunctiva: normal, no exudate, no injection, Sclera: no appreciated abnormality, Lids and lashes: appear normal, bilaterally. 20:30 ENT: External ear(s): are unremarkable, Nose: is normal, Mouth: is normal, Posterior pharynx: is normal, airway is patent. 20:30 Neck: ROM/movement: is normal, is supple, without pain, no range of motions limitations. 20:30 Chest/axilla: Inspection: normal. 20:30 Cardiovascular: Rate: normal. 20:30 Respiratory: the patient does not display signs of respiratory distress, Respirations: normal, no use of accessory muscles, labored breathing, is not present. 20:30 Abdomen/GI: Inspection: abdomen appears normal, Bowel sounds: active, all quadrants, Palpation: abdomen is soft and non-tender, in all quadrants. 20:30 Back: pain, is absent, ROM is normal. 20:30 Musculoskeletal/extremity: Extremities: grossly normal except: noted in the right quadriceps and lateral aspect of right thigh: ecchymosis, pain, tenderness, There is no evidence of deformity, erythema, ROM: limited active range of motion, in the right leg, Perfusion: the extremity is normally perfused throughout, Sensation intact. Vital Signs: 19:48 BP 134 / 96; Pulse 92; Resp 16 S; Temp 98.3(O); Pulse Ox 100% on R/A; Weight 55.79 kg ca1 (R); Height 5 ft. (152.40 cm); 22:00 BP 128 / 90; Pulse 88; Resp 16; Pulse Ox 100% on R/A; vc 19:48 Body Mass Index 24.02 (55.79 kg, 152.40 cm) ca1 MDM: 19:59 Patient medically screened. cp 20:30 Differential diagnosis: closed fracture, contusion, DVT, cellulitis. cp 21:08 ED course: received phone report from [employer] that right leg US negative. cp 22:16 Data reviewed: vital signs, nurses notes, lab test result(s), radiologic studies, plain cp films, ultrasound. 22:16 Test interpretation: by ED physician or midlevel provider: plain radiologic studies, cp xrays of right femur negative for fracture. Counseling: I had a detailed discussion with the patient and/or guardian regarding: the historical points, exam findings, and any diagnostic results supporting the discharge/admit diagnosis, lab results, radiology results, the need for outpatient follow up, a family practitioner, to return to the emergency department if symptoms worsen or persist or if there are any questions or concerns that arise at home. 05/27 20:18 Order name: CBC with Diff; Complete Time: 22:06 cp 05/27 22:06 Interpretation: Reviewed. cp 05/27 20:18 Order name: BMP; Complete Time: 22:06 cp 05/27 22:06 Interpretation: Normal except: K 3.1. cp 05/27 20:18 Order name: PT-INR; Complete Time: 22:06 cp 05/27 20:18 Order name: Ptt, Activated; Complete Time: 22:06 cp 05/27 20:18 Order name: US Extremity Venous Unilateral Ltd cp 05/27 20:18 Order name: XRAY Femur RIGHT cp 05/27 22:16 Order name: Panda Wrap; Complete Time: 22:33 cp Administered Medications: 22:33 Not Given (Patient Refused): Tylenol 650 mg PO once vc 22:33 Not Given (Patient Refused): Ibuprofen 800 mg PO once; if test negative vc Disposition: 23:05 Co-signature as Attending Physician, Tee Hernandez MD. rn Disposition: 05/28/19 22:17 Discharged to Home. Impression: Pain in right leg. - Condition is Stable. - Discharge Instructions: Musculoskeletal Pain. - Prescriptions for Ibuprofen 800 mg Oral Tablet - take 1 tablet by ORAL route every 8 hours As needed take with food; 30 tablet. - Medication Reconciliation Form, Thank You Letter, Antibiotic Education, Prescription Opioid Use form. - Follow up: Private Physician; When: 1 - 2 days; Reason: Worsening of condition. - Problem is new. - Symptoms have improved. Signatures: Dispatcher [employer] Tee Hawkins MD MD rn Page, Corey, PA PA cp Acob, Cheryl, RN RN ca1 Calcote, Vanessa, RN RN vc Corrections: (The following items were deleted from the chart) 20:35 20:18 Urine Dipstick-Ancillary ordered. cp vc 20:35 20:18 Urine Test ordered. cp vc 22:32 22:17 05/28/2019 22:17 Discharged to Home. Impression: Pain in right leg. Condition is vc Stable. Forms are Medication Reconciliation Form, Thank You Letter, Antibiotic Education, Prescription Opioid Use. Follow up: Private Physician; When: 1 - 2 days; Reason: Worsening of condition. Problem is new. Symptoms have improved. cp
--- NOTE | 2019-05-28 22:51 | RAD REPORT ---
EXAM DESCRIPTION: US - Extremity Venous Uni Ltd - 05/28/2019 9:05 pm CLINICAL HISTORY: PAIN Leg swelling and edema. COMPARISON: No comparisons FINDINGS: Right lower extremity venous system was interrogated with Doppler technique. Normal flow, compressibility and augmentation was noted. There is no DVT present. IMPRESSION: No evidence of right lower extremity deep venous thrombosis.
--- NOTE | 2019-05-28 22:51 | RAD REPORT ---
EXAM DESCRIPTION: RAD - Femur Right - 05/28/2019 8:49 pm CLINICAL HISTORY: PAIN COMPARISON: No comparisons FINDINGS: No bone or joint abnormality is detected.
[2019-05-29 01:09] VITALS: TEMP 98.3; O2SAT 100
[2019-05-29 01:10] VITALS: BP 128/90
== END 2019-05-28 22:32 | disposition home or self-care (01) ==
LOC: ER 19:30
DX: M79.604 Pain in right leg (principal); F17.290 Nicotine dependence, other tobacco product, uncomplicated; Z88.1 Allergy status to other antibiotic agents
CPT/HCPCS: 36415; 80048; 85025; 85610; 85730; 93971; 99284

== ENCOUNTER 2019-09-25 07:53 | Emergency (ER) | payer OTHER, SELFPAY ==
--- OUTSIDE RECORDS SUMMARY | 2019-09-25 07:55 | XMS REPORT | Continuity of Care Document ---
:1985 Author Organization [facility] t Address [facility] [place] [address] [place] [id number] Care Team Providers Name Role Phone Unavailable Unavailable Unavailable Problems This patient has no known problems. Allergies, Adverse Reactions, Alerts This patient has no known allergies or adverse reactions. Medications This patient has no known medications. Procedures This patient has no known procedures. Results This patient has no known results.
[2019-09-25] MEDS ORDERED: IBUPROFEN 200 MG TAB PO ONE (08:50)
[2019-09-25] MEDS ORDERED: IBUPROFEN 400 MG TAB ONE (08:51)
[2019-09-25] MEDS ORDERED: ONDANSETRON 4 MG (ODT) TAB ONE (08:51)
--- NOTE | 2019-09-25 09:25 | EDPHYS ---
Physician Documentation [facility] Name: Geoff Sanz Age: 33 yrs Sex: Female : 1985 Arrival Date: 09/25/2019 Time: 07:55 Bed 13 Private MD: ED Physician Nando Meyers HPI: 09/24 08:40 This 33 yrs old Female presents to ER via Unassigned with complaints of R/O kdr COVID. 08:40 The patient presents to the emergency department with nausea, that is mild, vomiting, kdr that is intermittent, diarrhea, that is intermittent. Onset: The symptoms/episode began/occurred gradually, 3 day(s) ago. Possible causes: unknown, Possible COVID exposure. The symptoms are aggravated by food , The symptoms are alleviated by nothing. Associated signs and symptoms: Pertinent positives: abdominal pain, diarrhea, nausea, vomiting, Subjective fever, Pertinent negatives: belching, constipation, dysuria, flatulence. Severity of symptoms: At their worst the symptoms were mild moderate just prior to arrival, in the emergency department the symptoms have improved mildly. The patient has not experienced similar symptoms in the past. The patient has not recently seen a physician. The patient and two other co-habitants are all feeling similar s/s though this patient is apparently the most ill. She is not toxic appearing and has not had a known exposure to COVID. Historical: - Allergies: 09:00 Vancomycin; ph - PMHx: 09:00 drug abuse; pelvic inflammatory disease; ph - PSHx: 09:00 None; ph - Immunization history:: Adult Immunizations unknown. ROS: 08:40 Constitutional: Negative for fever, chills, and weight loss, Eyes: Negative for injury, kdr pain, redness, and discharge, Neck: Negative for injury, pain, and swelling, Cardiovascular: Negative for chest pain, palpitations, and edema, Respiratory: Negative for shortness of breath, cough, wheezing, and pleuritic chest pain, Back: Negative for injury and pain, : Negative for injury, bleeding, discharge, and swelling, MS/Extremity: Negative for injury and deformity, Skin: Negative for injury, rash, and discoloration, Neuro: Negative for headache, weakness, numbness, tingling, and seizure activity. Psych: Negative for depression, anxiety, suicide ideation, homicidal ideation, and hallucinations, Allergy/Immunology: Negative for hives, rash, and allergies, Endocrine: Negative for neck swelling, polydipsia, polyuria, polyphagia, and marked weight changes, Hematologic/Lymphatic: Negative for swollen nodes, abnormal bleeding, and unusual bruising. 08:40 Abdomen/GI: Positive for abdominal pain, nausea and vomiting, nausea, vomiting, and diarrhea, abdominal cramps, Negative for rectal pain, rectal bleeding, bowel incontinence. Exam: 08:40 Constitutional: This is a well developed, well nourished patient who is awake, alert, kdr and in no acute distress. Head/Face: Normocephalic, atraumatic. Eyes: Pupils equal round and reactive to light, extra-ocular motions intact. Lids and lashes normal. Conjunctiva and sclera are non-icteric and not injected. Cornea within normal limits. Periorbital areas with no swelling, redness, or edema. Neck: Trachea midline, no thyromegaly or masses palpated, and no cervical lymphadenopathy. Supple, full range of motion without nuchal rigidity, or vertebral point tenderness. No Meningismus. Chest/axilla: Normal chest wall appearance and motion. Nontender with no deformity. No lesions are appreciated. Cardiovascular: Regular rate and rhythm with a normal S1 and S2. No gallops, murmurs, or rubs. Normal PMI, no JVD. No pulse deficits. Respiratory: Lungs have equal breath sounds bilaterally, clear to auscultation and percussion. No rales, rhonchi or wheezes noted. No increased work of breathing, no retractions or nasal flaring. Back: No spinal tenderness. No costovertebral tenderness. Full range of motion. Skin: Warm, dry with normal turgor. Normal color with no rashes, no lesions, and no evidence of cellulitis. MS/ Extremity: Pulses equal, no cyanosis. Neurovascular intact. Full, normal range of motion. Neuro: Awake and alert, GCS 15, oriented to person, place, time, and situation. Cranial nerves II-XII grossly intact. Motor strength 5/5 in all extremities. Sensory grossly intact. Cerebellar exam normal. Normal gait. Psych: Awake, alert, with orientation to person, place and time. Behavior, mood, and affect are within normal limits. 08:40 Abdomen/GI: Inspection: abdomen appears normal, Bowel sounds: active, all quadrants, Palpation: soft, mild abdominal tenderness, in all quadrants. Vital Signs: 08:30 BP 104 / 66; Pulse 74; Resp 20; Temp 99.1(TE); Pulse Ox 100% on R/A; dm5 MDM: 08:40 Data reviewed: vital signs, nurses notes, lab test result(s), radiologic studies. kdr Counseling: I had a detailed discussion with the patient and/or guardian regarding: the historical points, exam findings, and any diagnostic results supporting the discharge/admit diagnosis, lab results, the need for outpatient follow up. 09:24 Patient medically screened. kdr 09/24 08:19 Order name: COVID-19 kdr 09/24 08:19 Order name: Orthostatic Blood Pressure: supine and standing only; Complete Time: 08:40 kdr Administered Medications: 08:55 Drug: Ondansetron (Zofran) 4 mg Route: PO; dm5 08:55 Drug: Motrin 600 mg Route: PO; dm5 Disposition: 09/25/19 09:24 Discharged to Home. Impression: Nausea and vomiting, Diarrhea, unspecified, Abdominal and pelvic pain. - Condition is Stable. - Discharge Instructions: Nausea and Vomiting, Adult, [id number], Abdominal Pain, Adult, [id number]. - Prescriptions for Zofran 4 mg Oral Tablet - take 1 tablet by ORAL route every 4-6 hours As needed; 12 tablet. - Medication Reconciliation Form, Thank You Letter form. - Follow up: Private Physician; When: 2 - 3 days; Reason: If symptoms return, Further diagnostic work-up, Recheck today's complaints, Continuance of care, Re-evaluation by your physician. - Problem is new. - Symptoms have improved. Signatures: Dispatcher [employer] EDMS Dana Quick RN RN dm5 Nando Meyers MD MD kdr Hall, Patricia RN RN ph Corrections: (The following items were deleted from the chart) 09:53 09:24 09/25/2019 09:24 Discharged to Home. Impression: Nausea and vomiting; Diarrhea, dm5 unspecified; Abdominal and pelvic pain. Condition is Stable. Forms are Medication Reconciliation Form, Thank You Letter, Antibiotic Education, Prescription Opioid Use. Follow up: Private Physician; When: 2 - 3 days; Reason: If symptoms return, Further diagnostic work-up, Recheck today's complaints, Continuance of care, Re-evaluation by your physician. Problem is new. Symptoms have improved. kdr
--- NOTE | 2019-09-25 09:25 | ER ---
Nurse's Notes [facility] Name: Geoff Sanz Age: 33 yrs Sex: Female : 1985 Arrival Date: 09/25/2019 Time: 07:55 Bed 13 Private MD: Diagnosis: Nausea and vomiting;Diarrhea, unspecified;Abdominal and pelvic pain Presentation: 09/24 08:30 Chief complaint: Patient states: N/V/ABDOMINAL pain x 3 days. Coronavirus screen: dm5 Patient reports a cough. Patient reports shortness of breath or difficulty breathing. Patient reports a measured and/or subjective temperature greater than 100.4F. Patient denies travel on a cruise ship or to a country the [facility] currently lists as an affected area. Patient denies contact with known and/or suspected case of COVID-19. Ebola Screen: Patient negative for fever greater than or equal to 101.5 degrees Fahrenheit, and additional compatible Ebola Virus Disease symptoms Patient denies exposure to infectious person. Patient denies travel to an Ebola-affected area in the 21 days before illness onset. No symptoms or risks identified at this time. Initial Sepsis Screen: Does the patient meet any 2 criteria? No. Patient's initial sepsis screen is negative. Does the patient have a suspected source of infection? No. Patient's initial sepsis screen is negative. Risk Assessment: Do you want to hurt yourself or someone else? Patient reports no desire to harm self or others. Onset of symptoms was September 22, 2019. 08:30 Acuity: BERNADETTE 4 dm5 08:30 Method Of Arrival: Ambulatory dm5 Historical: - Allergies: 09:00 Vancomycin; ph - PMHx: 09:00 drug abuse; pelvic inflammatory disease; ph - PSHx: 09:00 None; ph - Immunization history:: Adult Immunizations unknown. Vital Signs: 08:30 BP 104 / 66; Pulse 74; Resp 20; Temp 99.1(TE); Pulse Ox 100% on R/A; dm5 ED Course: 07:55 Patient arrived in ED. ag5 08:07 Nando Meyers MD is Attending Physician. kdr 08:59 Ade Vidal, RN is Primary Nurse. ph 09:37 Dana Quick, RN is Primary Nurse. dm5 09:42 Triage completed. dm5 Administered Medications: 08:55 Drug: Ondansetron (Zofran) 4 mg Route: PO; dm5 08:55 Drug: Motrin 600 mg Route: PO; dm5 Outcome: 09:24 Discharge ordered by . kdr 09:53 Patient left the ED. dm5 Addendum: 09/27/2019 11:48 Addendum: Other Attempted to contact pt regarding negatvie COVID-19 swab results. d m5 Signatures: Dana Quick RN RN dm5 Nando Meyers MD MD kdr Hall, Patricia, RN RN Hubert, Cecile ag5 Corrections: (The following items were deleted from the chart) 09/24 09:43 09:39 Chief complaint: Patient states: N/V/ABDOMINAL pain x 3 days. dm5 dm5 09:39 Coronavirus screen: Patient reports a cough. Patient reports shortness of breath dm5 or difficulty breathing. Patient reports a measured and/or subjective temperature greater than 100.4F. Patient denies travel on a cruise ship or to a country the [facility] currently lists as an affected area. Patient denies contact with known and/or suspected case of COVID-19. dm5 09:39 Ebola Screen: Patient negative for fever greater than or equal to 101.5 degrees dm5 Fahrenheit, and additional compatible Ebola Virus Disease symptoms Patient denies exposure to infectious person. Patient denies travel to an Ebola-affected area in the 21 days before illness onset. No symptoms or risks identified at this time. dm5 09:39 Initial Sepsis Screen: Does the patient meet any 2 criteria? No. Patient's 5 initial sepsis screen is negative. Does the patient have a suspected source of infection? No. Patient's initial sepsis screen is negative. dm5 09:39 Risk Assessment: Do you want to hurt yourself or someone else? Patient reports no dm5 desire to harm self or others. dm5 09:39 Onset of symptoms was September 22, 2019 dm5 dm5 09:39 Method Of Arrival: Ambulatory dm5 dm5 09:39 BP 104 / 66; Pulse 74bpm; Resp 20bpm; Pulse Ox 100% RA; Temp 99.1F Temporal; dm5 dm5 43 09:39 Acuity: BERNADETTE 4 dm5 dm5
[2019-09-25 10:02] VITALS: BP 104/66; TEMP 99.1; O2SAT 100
== END 2019-09-25 09:53 | disposition home or self-care (01) ==
LOC: ER 07:53
DX: R19.7 Diarrhea, unspecified (principal); Z20.828 Contact with and (suspected) exposure to other viral communicable diseases; R10.2 Pelvic and perineal pain; Z88.3 Allergy status to other anti-infective agents
CPT/HCPCS: 99282; U0001

== ENCOUNTER 2020-11-08 14:24 | Emergency (ER) | payer SELFPAY ==
--- OUTSIDE RECORDS SUMMARY | 2020-11-08 14:27 | XMS REPORT | Continuity of Care Document ---
:1985 Author Organization [facility] t Address [address] [place] [address] Care Team Providers Name Role Phone Tommie Cowart Attending Clinician Lindsay Mccullough MD Attending Clinician Problems This patient has no known problems. Allergies, Adverse Reactions, Alerts This patient has no known allergies or adverse reactions. Medications This patient has no known medications. Procedures This patient has no known procedures. Encounters Start End Encounter Admission Attending Care Care Encounter Source Date/Time Date/Time Type Type Clinicians Facility Department ID 2020-02-21 2020-02-21 Emergency Terry, [facility] [id number] 20:22:00 22:25:00 Madelaine Sevilla [id number] [place] [id number] [place] [id number] 2019-10-14 2019-10-15 Emergency Jamel, [place] [id number] 10:49:27 12:45:00 Elijah Montoya [place] [id number] Results This patient has no known results.
--- NOTE | 2020-11-08 17:25 | ER ---
Nurse's Notes [facility] Name: Geoff Sanz Age: 35 yrs Sex: Female : 1985 Arrival Date: 11/08/2020 Time: 14:29 Bed Waiting Private MD: Diagnosis: Presentation: 11/08 14:45 Chief complaint: Patient states: Dental pain and R sided facial swelling that began x2 ss days. Coronavirus screen: Client denies travel out of the [place] in the last 14 days. Ebola Screen: Patient denies exposure to infectious person. Patient denies travel to an Ebola-affected area in the 21 days before illness onset. Initial Sepsis Screen: Does the patient meet any 2 criteria? No. Patient's initial sepsis screen is negative. Does the patient have a suspected source of infection? No. Patient's initial sepsis screen is negative. Risk Assessment: Do you want to hurt yourself or someone else? Patient reports no desire to harm self or others. Onset of symptoms was November 07, 2020. 14:45 Method Of Arrival: Ambulatory 14:45 Acuity: BERNADETTE 5 Historical: - Allergies: 14:46 Vancomycin; ss 14:46 Darvocet-N 100; ss - PMHx: 14:46 drug abuse; pelvic inflammatory disease; ss - Immunization history:: Adult Immunizations up to date, Client reports receiving the 1st dose of the Covid vaccine. - Social history:: Smoking status: Reported history of juuling and/or vaping. Assessment: 16:49 Reassessment: called to exam room twice. No answer. Unable to locate patient. Vital Signs: 14:45 BP 139 / 98; Pulse 95; Resp 17; Temp 96.6(TE); Pulse Ox 98% on R/A; Weight 54.43 kg; ss Height 4 ft. 11 in. (149.86 cm); Pain 10/10; 14:45 Body Mass Index 24.24 (54.43 kg, 149.86 cm) ED Course: 14:29 Patient arrived in ED. mr 14:46 Triage completed. ss 14:46 Arm band placed on right wrist. ss 16:05 Armando Schneider PA is PHCP. cp 16:05 Justin Andrea MD is Attending Physician. cp 17:24 No provider procedures requiring assistance completed. ss Administered Medications: No medications were administered Outcome: 17:24 Eloped from waiting room. ss 17:25 Patient left the ED. ss Signatures: Alyce Nino Shelby, RN RN ss Armando Schneider PA PA cp
[2020-11-08 17:30] VITALS: BP 139/98; TEMP 96.6; O2SAT 98
== END 2020-11-08 17:25 | disposition left against medical advice (07) ==
LOC: ER 14:24
DX: Z53.21 Procedure and treatment not carried out due to patient leaving prior to being seen by health care provider (principal)
CPT/HCPCS: 99281

== ENCOUNTER 2020-11-09 04:53 | Emergency (ER) | payer SELFPAY ==
--- OUTSIDE RECORDS SUMMARY | 2020-11-09 04:56 | XMS REPORT | Continuity of Care Document ---
:1985 Author Organization [facility] t Address [address] [place] [address] Care Team Providers Name Role Phone Tommie [...] Department ID 2020-02-21 2020-02-21 Emergency Terry, [facility] [id number] 20:22:00 22:25:00 Madelaine Sevilla [id number] [place] [id number] [place] [id number] 2019-10-14 2019-10-15 Emergency Jamel, [place] [id number] 10:49:27 12:45:00 Elijah Montoya [place] [id number] Results This patient has no known results.
--- NOTE | 2020-11-09 06:34 | ER ---
Nurse's Notes [facility] Name: Geoff Sanz Age: 35 yrs Sex: Female : 1985 Arrival Date: 11/09/2020 Time: 04:55 Bed 9 Private MD: Diagnosis: Dental caries, unspecified Presentation: 11/09 06:13 Chief complaint: Patient states: swelling and abscess to right upper mouth x 2 days; lp1 denies fever. Coronavirus screen: Client denies travel out of the [place] in the last 14 days. At this time, the client does not indicate any symptoms associated with coronavirus-19. Ebola Screen: No symptoms or risks identified at this time. Initial Sepsis Screen: Does the patient meet any 2 criteria? Yes Does the patient have a suspected source of infection? No. Patient's initial sepsis screen is negative. Risk Assessment: Do you want to hurt yourself or someone else? Patient reports no desire to harm self or others. Onset of symptoms was November 09, 2020. 06:13 Method Of Arrival: Ambulatory lp1 06:13 Acuity: BERNADETTE 4 lp1 Historical: - Allergies: 06:15 Darvocet-N 100; lp1 06:15 Vancomycin; lp1 - Home Meds: 06:15 None [Active]; lp1 - PMHx: 06:15 drug abuse; pelvic inflammatory disease; lp1 - Immunization history:: Adult Immunizations up to date. - Social history:: Smoking status: Patient reports the use of cigarette tobacco products, denies chronic smoking, but will smoke occasionally. Screenin:17 Abuse screen: Denies threats or abuse. Denies injuries from another. Nutritional lp1 screening: No deficits noted. Tuberculosis screening: No symptoms or risk factors identified. Fall Risk None identified. Assessment: 06:15 General: Appears uncomfortable, Behavior is crying. Pain: Complains of pain in right lp1 buccal mucosa Pain currently is 10 out of 10 on a pain scale. Quality of pain is described as heavy. Neuro: Level of Consciousness is awake, alert, obeys commands. Cardiovascular: Patient's skin is warm and dry. Cardiovascular:. Respiratory: Respiratory effort is even, unlabored. GI: Reports nausea. : No signs and/or symptoms were reported regarding the genitourinary system. EENT: Poor dentition noted. dental caries noted; . Derm: Skin is intact, Skin is dry, Skin is normal. Musculoskeletal: No deficits noted. 07:12 Reassessment: Patient crying, reports "I'm ready to go home". General: Behavior is lp1 anxious, crying. Vital Signs: 05:47 BP 138 / 99; Pulse 73; Resp 18; Temp 97.3(TE); Pulse Ox 100% ; mw2 ED Course: 04:55 Patient arrived in ED. wm 06:08 Jeferson Sanchez NP is PHCP. pm1 06:08 Peter Nassar MD is Attending Physician. pm1 06:15 Triage completed. lp1 06:15 Arm band placed on. lp1 06:17 Patient has correct armband on for positive identification. lp1 07:11 Maryse Esquivel, RN is Primary Nurse. lp1 07:13 No provider procedures requiring assistance completed. Patient did not have IV access lp1 during this emergency room visit. Administered Medications: 06:25 Drug: Ketorolac 60 mg Route: IM; Site: right gluteus; lp1 07:12 Drug: Clindamycin 600 mg Route: IM; Site: right gluteus; lp1 Outcome: 06:34 Discharge ordered by MD. pm1 08:23 Patient left the ED. iw Signatures: Cindy Mitchell RN RN iw Mrayse Esquivel, LAURIE RN lp1 Jeferson Sanchez NP [employer] pm1 Hu Rowland mw2 [place] Zelaya Corrections: (The following items were deleted from the chart) 07:12 06:25 Clindamycin 600 mg IM in right gluteus lp1 lp1 07:12 07:12 Ketorolac 60 mg IM in right gluteus lp1 lp1
--- NOTE | 2020-11-09 06:34 | EDPHYS ---
Physician Documentation [facility] Name: Geoff Sanz Age: 35 yrs Sex: Female : 1985 Arrival Date: 11/09/2020 Time: 04:55 Bed 9 Private MD: ED Physician Peter Nassar HPI: 11/09 06:20 This 35 yrs old Female presents to ER via Ambulatory with complaints of Dental pm1 pain. 06:20 The patient presents with pain, swelling. The problem is located in the right upper pm1 teeth. 06:20 Onset: The symptoms/episode began/occurred 2 day(s) ago. Duration: The symptoms are pm1 continuous. Modifying factors: The symptoms are alleviated by nothing, the symptoms are aggravated by nothing. Associated signs and symptoms: Pertinent positives: swelling, facial. Severity of symptoms: in the emergency department the symptoms are actually worse. The patient has experienced similar episodes in the past, multiple times. The patient has not recently seen a physician. Historical: - Allergies: 06:15 Darvocet-N 100; lp1 06:15 Vancomycin; lp1 - Home Meds: 06:15 None [Active]; lp1 - PMHx: 06:15 drug abuse; pelvic inflammatory disease; lp1 - Immunization history:: Adult Immunizations up to date. - Social history:: Smoking status: Patient reports the use of cigarette tobacco products, denies chronic smoking, but will smoke occasionally. ROS: 06:20 Constitutional: Negative for fever, chills, and weight loss. pm1 06:20 Cardiovascular: Negative for chest pain, palpitations, and edema, Respiratory: Negative for shortness of breath, cough, wheezing, and pleuritic chest pain, Abdomen/GI: Negative for abdominal pain, nausea, vomiting, diarrhea, and constipation, MS/Extremity: Negative for injury and deformity, Skin: Negative for injury, rash, and discoloration. 06:20 ENT: Positive for dental pain, Negative for ear pain, sore throat. 06:20 All other systems are negative. Exam: 06:20 Constitutional: This is a well developed, well nourished patient who is awake, alert, pm1 and in no acute distress. Head/Face: Normocephalic, atraumatic. 06:20 Skin: Warm, dry with normal turgor. Normal color with no rashes, no lesions, and no evidence of cellulitis. MS/ Extremity: Pulses equal, no cyanosis. Neurovascular intact. Full, normal range of motion. 06:20 ENT: Mouth: Lips: normal, Oral mucosa: normal, pink and intact, moist, Gums: No abscess or swelling present, abscess, is not appreciated, drooling, is not appreciated, Posterior pharynx: no acute changes, Dental exam: dental caries, that is severe, diffusely, Voice: no acute changes. 06:20 Neck: Exam negative for acute changes, ROM/movement: is normal, is supple, without pain, no range of motions limitations, Lymph nodes: no appreciated lymphadenopathy. 06:20 Cardiovascular: Exam negative for acute changes, Rate: normal, Rhythm: regular, Pulses: no pulse deficits are appreciated, Heart sounds: normal, normal S1and S2. 06:20 Respiratory: Exam negative for acute changes, respiratory distress, shortness of breath, Breath sounds: are clear throughout. 06:20 Neuro: Exam negative for acute changes, Orientation: is normal, Mentation: is normal, Motor: is normal, moves all fours. Vital Signs: 05:47 BP 138 / 99; Pulse 73; Resp 18; Temp 97.3(TE); Pulse Ox 100% ; mw2 MDM: 06:10 Patient medically screened. pm1 06:30 ED course: Patient requesting to go home now. Informed her that I would like her to get pm1 a shot of antibiotics prior to discharge. Informed patient she needs to follow-up with a dentist for further treatment and to stop using illegal drugs. Informed the patient I will get her discharge paperwork ready so she will be able to go home as soon as she gets her medications. 06:32 Data reviewed: vital signs. Data interpreted: Pulse oximetry: on room air is 100 %. pm1 Interpretation: normal. Counseling: I had a detailed discussion with the patient and/or guardian regarding: the historical points, exam findings, and any diagnostic results supporting the discharge/admit diagnosis, the need for outpatient follow up, for definitive care, a dentist, to return to the emergency department if symptoms worsen or persist or if there are any questions or concerns that arise at home. Administered Medications: 06:25 Drug: Ketorolac 60 mg Route: IM; Site: right gluteus; lp1 07:12 Drug: Clindamycin 600 mg Route: IM; Site: right gluteus; lp1 Disposition Summary: 11/09/20 06:34 Discharge Ordered Location: Home pm1 Problem: new pm1 Symptoms: have improved pm1 Condition: Stable pm1 Diagnosis - Dental caries, unspecified pm1 Followup: pm1 - With: Emergency Department - When: As needed - Reason: Worsening of condition Followup: pm1 - With: Private Physician - When: 2 - 3 days - Reason: Recheck today's complaints, Continuance of care, Re-evaluation by your physician Discharge Instructions: - Discharge Summary Sheet pm1 - Dental Caries, Adult pm1 - Dental Pain pm1 - Diet and Dental Disease pm1 Forms: - Medication Reconciliation Form pm1 - Thank You Letter pm1 - Antibiotic Education pm1 - Prescription Opioid Use pm1 Prescriptions: - Clindamycin HCl 300 mg Oral Capsule - take 1 capsule by ORAL route every 6 hours for 10 days; 40 capsule; Refills: 0, pm1 Product Selection Permitted - Diclofenac Sodium 75 mg Oral tablet,delayed release (DR/EC) - take 1 tablet by ORAL route 2 times per day As needed; 30 tablet; Refills: 0, pm1 Product Selection Permitted Signatures: Maryse Esquivel RN RN lp1 Jeferson Sanchez NP [employer] pm1
[2020-11-09] MEDS ORDERED: CLINDAMYCIN IV 150 MG/ML (4 mL) VIAL ONE (07:09)
[2020-11-09] MEDS ORDERED: KETOROLAC 30 MG/ML INJ ONE (07:09)
[2020-11-09 08:29] VITALS: BP 138/99; TEMP 97.3; O2SAT 100
== END 2020-11-09 08:23 | disposition home or self-care (01) ==
LOC: ER 04:53
DX: K02.9 Dental caries, unspecified (principal); F17.210 Nicotine dependence, cigarettes, uncomplicated; Z88.3 Allergy status to other anti-infective agents; Z88.5 Allergy status to narcotic agent
CPT/HCPCS: 96372; 99282; S0077

== ENCOUNTER 2021-03-28 02:52 | Emergency (ER) | payer OTHER, SELFPAY ==
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
[2021-03-28] MEDS ORDERED: CLINDAMYCIN 600MG/D5W 600 MG/50 ML BAG IV ONE (05:01)
[2021-03-28] MEDS ORDERED: NA CHLORIDE 0.9% 1,000 ML ONE (05:01)
[2021-03-28] MEDS ORDERED: ONDANSETRON 4 MG/2 ML VIAL ONE (05:01)
[2021-03-28] MEDS ORDERED: MORPHINE 4 MG/ML SYR ONE ×2 (05:01→08:01)
[2021-03-28 05:13] LABS: Absolute Lymphocytes (CBC) 1.7 K/uL (0.7-4.9); Hematocrit 36.7 % (36.0-45.0); Lymphocytes % 23.5 % (15.3-44.8); MPV 8.5 fL (7.6-11.3); RBC Red Blood Cell Count 3.98 M/uL (3.86-4.86)
[2021-03-28 05:21] LABS: Protime INR 0.94
[2021-03-28 05:34] LABS: ALT/SGPT 16 U/L (12-78); AST/SGOT 15 U/L (15-37); Albumin 3.4 g/dL (3.4-5.0); Alkaline Phosphatase 67 U/L (45-117); BUN Blood Urea Nitrogen 11 mg/dL (7-18); Bicarbonate 27 mmol/L (21-32); Bilirubin Direct < 0.1 mg/dL (0-0.2); Bilirubin Total 0.1 mg/dL (0.2-1.0); Glucose Level 95 mg/dL (74-106); Potassium 3.9 mmol/L (3.5-5.1); Protein, Total 7.5 g/dL (6.4-8.2); Sodium Level 138 mmol/L (136-145)
--- NOTE | 2021-03-28 07:20 | RAD REPORT ---
EXAM DESCRIPTION: CT - Soft Tissue Neck W/Contr CLINICAL HISTORY: Facial pain;Swelling COMPARISON: [id number] dated 03/03/[address] scans are performed using dose optimization technique as appropriate and may includ e automated exposure control or mA/KV adjustment according to patient size. FINDINGS: 15 mm enhancing fluid collection involving the maxilla. There is a large periapical lucenc y associated with the right central, lateral, and a canine teeth. Periapical lucencies also associate d with the left lateral incisor and left maxillary canine tooth. Lip ring noted. Tornwaldt cyst noted. Fossa Rosenmller are normal. Parapharyngeal fat triangles are symmetric. Tongue base structures are normal. Epiglottis and aryepiglottic folds are normal. Mild right maxillary sinus thickening. The vocal cords are normal in appearance. Salivary glands are normal in appearance. Upper lung aragon are clear. Included intracranial contents are unremarkable. IMPRESSION: Odontogenic abscess associated with a periapical lucency involving the right central, la teral, and canine teeth of the maxilla.
--- NOTE | 2021-03-28 08:02 | ER ---
Nurse's Notes [facility] Name: Geoff Sanz Age: 35 yrs Sex: Female : 1985 Arrival Date: 03/28/2021 Time: 02:57 Bed Treatment Private MD: Diagnosis: Dental abscess -right maxilla Presentation: 03/28 04:29 Chief complaint: Patient states: toothache to the upper right side that started as6 yesterday. Coronavirus screen: At this time, the client does not indicate any symptoms associated with coronavirus-19. Ebola Screen: No symptoms or risks identified at this time. Initial Sepsis Screen: Does the patient meet any 2 criteria? No. Patient's initial sepsis screen is negative. Does the patient have a suspected source of infection? Yes: Skin breakdown/wound. Risk Assessment: Do you want to hurt yourself or someone else? Patient reports no desire to harm self or others. Onset of symptoms was March 27, 2021. 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 - Social history:: Smoking status: Patient denies any tobacco usage or history of. Screenin:10 Abuse screen: Denies threats or abuse. Denies injuries from another. Nutritional as6 screening: No deficits noted. Tuberculosis screening: No symptoms or risk factors identified. Fall Risk None identified. Assessment: 05:08 General: Appears unkempt, Behavior is drowsy, quiet. Pain: Complains of pain in right as6 cheek. EENT: Reports pain in right cheek. Musculoskeletal: Swelling present in right cheek and right mandible. 09:07 Reassessment: pt refusing to go with EMS. iw Vital Signs: 04:16 BP 129 / 88; Pulse 98; Resp 22; Temp 98.6; Pulse Ox 98% on R/A; Weight 54.43 kg; Height mw2 5 ft. 0 in. (152.40 cm); Pain 10/10; 04:16 Body Mass Index 23.44 (54.43 kg, 152.40 cm) mw2 ED Course: 02:57 Patient arrived in ED. wm 04:06 Peter Nassar MD is Attending Physician. mh7 04:32 Triage completed. as6 04:55 Inserted saline lock: 20 gauge in left forearm, using aseptic technique. Blood as6 collected. 04:56 COVID-19 SARS RT PCR (Document "Date of Onset" if Symptomatic) Sent. as6 05:08 COVID-19 SARS RT PCR (Document "Date of Onset" if Symptomatic) Sent. as6 05:08 CBC with Diff Sent. as6 05:08 Basic Metabolic Panel Sent. as6 05:08 LFT's Sent. as6 05:08 Ptt, Activated Sent. as6 05:08 Protime (+inr) Sent. as6 05:08 Blood Culture Adult (2) Sent. as6 05:08 CBC with Automated Diff Sent. as6 05:11 Bed in low position. Call light in reach. as6 05:11 Arm band placed on. as6 06:07 CT Soft Tissue Neck W/contr In Process Unspecified. EDMS 07:18 Attending Physician role handed off by Peter Nassar MD kdr 07:18 Nando Meyers MD is Attending Physician. kdr 07:23 Cindy Mitchell, LAURIE is Primary Nurse. iw 08:03 initiated a transfer with Jaoo Nolen Rn from the [facility]. eb 08:13 administrative approval given by Joao Nolen Rn/ patient has been accepted to [facility] ER/ Dr. Darek Terrazas has accepted the patient without conference/ report to be called to [phone]. Administered Medications: 05:07 Drug: Zofran (Ondansetron) 4 mg Route: IVP; Site: left forearm; as6 07:00 Follow up: Response: No adverse reaction iw 05:07 Drug: Clindamycin 600 mg Route: IVPB; Infused Over: 30 mins; Site: left forearm; as6 06:00 Follow up: IV Status: Completed infusion iw 05:08 Drug: NS 0.9% 1000 ml Route: IV; Rate: 1000 ml; Site: left forearm; as6 03/29 07:00 Follow up: IV Status: Completed infusion iw 03/28 05:08 Drug: morphine 4 mg Route: IVP; Site: left forearm; as6 03/29 07:00 Follow up: Response: No adverse reaction iw 03/28 08:07 Drug: morphine 4 mg Route: IVP; Site: left forearm; iw 08:30 Follow up: Response: No adverse reaction iw Outcome: 08:02 ER care complete, transfer ordered by . kdr 10:17 AMA Left before signing form. iw 10:18 Patient left the ED. iw Signatures: Dispatcher [employer] EDMS Nando Meyers MD MD kdr Cindy Mitchell RN RN iw Hu Rowland mw2 Rosa Lara Maurice, MD MD mh7 [place] Zelaya Ashby, RN RN as6
--- NOTE | 2021-03-28 08:03 | EDPHYS ---
Physician Documentation [facility] Name: Geoff Sanz Age: 35 yrs Sex: Female : 1985 Arrival Date: 03/28/2021 Time: 02:57 Bed Treatment Private MD: ED Physician Nando Meyers HPI: 03/28 05:14 This 35 yrs old Female presents to ER via Ambulatory with complaints of mh7 Toothache, Facial Swelling. 05:14 The patient presents with pain, swelling. The problem is located in the Right side of mh7 face. 05:14 Onset: The symptoms/episode began/occurred 2 day(s) ago. Duration: The symptoms are mh7 continuous, and are steadily getting worse. Modifying factors: The symptoms are alleviated by nothing, the symptoms are aggravated by nothing. Associated signs and symptoms: Pertinent positives: dysphagia, inability to eat, pain, swelling, Pertinent negatives: anorexia, chills, fever, nausea, redness in area, vomiting. Severity of symptoms: At their worst the symptoms were moderate, last night, in the emergency department the symptoms are unchanged. TRACKMAN: 05:11 LMP 03/22/2021 as6 Historical: - Allergies: 04:32 Darvocet-N 100; as6 04:32 Vancomycin; as6 - Home Meds: 04:32 None [Active]; as6 - PMHx: 04:32 drug abuse; pelvic inflammatory disease; as6 - PSHx: 04:32 section; as6 - Immunization history:: Adult Immunizations not up to date. - Social history:: Smoking status: Patient denies any tobacco usage or history of. ROS: 05:14 Constitutional: Negative for fever, chills, and weight loss, Eyes: Negative for injury, mh7 pain, redness, and discharge, Neck: Negative for injury, pain, and swelling, Cardiovascular: Negative for chest pain, palpitations, and edema, Respiratory: Negative for shortness of breath, cough, wheezing, and pleuritic chest pain, Abdomen/GI: Negative for abdominal pain, nausea, vomiting, diarrhea, and constipation, Back: Negative for injury and pain, : Negative for injury, bleeding, discharge, and swelling, MS/Extremity: Negative for injury and deformity, Skin: Negative for injury, rash, and discoloration, Neuro: Negative for headache, weakness, numbness, tingling, and seizure, Psych: Negative for depression, anxiety, suicide ideation, homicidal ideation, and hallucinations, Allergy/Immunology: Negative for hives, rash, and allergies, Endocrine: Negative for neck swelling, polydipsia, polyuria, polyphagia, and marked weight changes, Hematologic/Lymphatic: Negative for swollen nodes, abnormal bleeding, and unusual bruising. Exam: 05:14 Eyes: Pupils equal round and reactive to light, extra-ocular motions intact. Lids and mh7 lashes normal. Conjunctiva and sclera are non-icteric and not injected. Cornea within normal limits. Periorbital areas with no swelling, redness, or edema. Neck: Trachea midline, no thyromegaly or masses palpated, and no cervical lymphadenopathy. Supple, full range of motion without nuchal rigidity, or vertebral point tenderness. No Meningismus. Chest/axilla: Normal chest wall appearance and motion. Nontender with no deformity. No lesions are appreciated. Cardiovascular: Regular rate and rhythm with a normal S1 and S2. No gallops, murmurs, or rubs. Normal PMI, no JVD. No pulse deficits. Respiratory: Lungs have equal breath sounds bilaterally, clear to auscultation and percussion. No rales, rhonchi or wheezes noted. No increased work of breathing, no retractions or nasal flaring. Abdomen/GI: Soft, non-tender, with normal bowel sounds. No distension or tympany. No guarding or rebound. No evidence of tenderness throughout. Back: No spinal tenderness. No costovertebral tenderness. Full range of motion. Skin: Warm, dry with normal turgor. Normal color with no rashes, no lesions, and no evidence of cellulitis. MS/ Extremity: Pulses equal, no cyanosis. Neurovascular intact. Full, normal range of motion. Neuro: Awake and alert, GCS 15, oriented to person, place, time, and situation. Cranial nerves II-XII grossly intact. Motor strength 5/5 in all extremities. Sensory grossly intact. Cerebellar exam normal. Normal gait. Psych: Awake, alert, with orientation to person, place and time. Behavior, mood, and affect are within normal limits. 05:14 Constitutional: The patient appears in no acute distress, alert, awake, uncomfortable. 05:14 Head/face: Noted is swelling, that is mild, of the right cheek and right jaw. mh7 05:14 ENT: Posterior pharynx: is normal, airway is patent, Dental exam: dental caries, that mh7 is severe, diffusely, missing teeth, diffusely. Vital Signs: 04:16 BP 129 / 88; Pulse 98; Resp 22; Temp 98.6; Pulse Ox 98% on R/A; Weight 54.43 kg; Height mw2 5 ft. 0 in. (152.40 cm); Pain 10/10; 04:16 Body Mass Index 23.44 (54.43 kg, 152.40 cm) mw2 MDM: 07:00 Transition of care: After a detail discussion of the patient's case, care is 7 transferred to Nando Meyers MD. 08:02 Patient medically screened. kdr 08:02 Data reviewed: vital signs, nurses notes, lab test result(s), radiologic studies. kdr Counseling: I had a detailed discussion with the patient and/or guardian regarding: the historical points, exam findings, and any diagnostic results supporting the discharge/admit diagnosis, lab results, radiology results, the need to transfer to another facility. 08:33 ED course: Continues to be stable in the emergency department. She is required slightly kdr more pain medication prior to transfer.. 10:17 ED course: The patient stated that she did not want to ride an ambulance and that she kdr would get her significant other to take her to [place].. 03/28 04:34 Order name: CBC with Diff [facility] 03/28 04:34 Order name: Basic Metabolic Panel; Complete Time: 05:40 [facility] 03/28 04:34 Order name: LFT's; Complete Time: 05:40 [facility] 03/28 04:34 Order name: Protime (+inr); Complete Time: 05:24 [facility] 03/28 04:34 Order name: Ptt, Activated; Complete Time: 05:24 [facility] 03/28 04:34 Order name: COVID-19 SARS RT PCR (Document "Date of Onset" if Symptomatic); Complete [facility] Time: 06:00 03/28 04:34 Order name: Blood Culture Adult (2) [facility] 03/28 04:34 Order name: CBC with Automated Diff; Complete Time: 05:24 [facility] 03/28 04:40 Order name: CT Soft Tissue Neck W/contr; Complete Time: 07:49 7 03/28 06:03 Order name: Urine Drug Screen; Complete Time: 20:25 7 03/28 08:18 Order name: Urine Dipstick-Ancillary; Complete Time: 20:25 [facility] 03/28 04:34 Order name: Saline Lock; Complete Time: 04:56 7 03/28 06:03 Order name: Urine Dipstick-Ancillary (obtain specimen); Complete Time: 08:20 [facility] 03/28 06:03 Order name: Urine Test (obtain specimen); Complete Time: 08:20 7 Administered Medications: 05:07 Drug: Zofran (Ondansetron) 4 mg Route: IVP; Site: left forearm; as6 07:00 Follow up: Response: No adverse reaction 05:07 Drug: Clindamycin 600 mg Route: IVPB; Infused Over: 30 mins; Site: left forearm; as6 06:00 Follow up: IV Status: Completed infusion iw 05:08 Drug: NS 0.9% 1000 ml Route: IV; Rate: 1000 ml; Site: left forearm; as6 03/29 07:00 Follow up: IV Status: Completed infusion iw 03/28 05:08 Drug: morphine 4 mg Route: IVP; Site: left forearm; as6 03/29 07:00 Follow up: Response: No adverse reaction 03/28 08:07 Drug: morphine 4 mg Route: IVP; Site: left forearm; 08:30 Follow up: Response: No adverse reaction iw Disposition Summary: 03/28/21 10:17 Left Against Medical Advice Location: Home kdr Problem: new(03/28/21 10:17) kdr Symptoms: have improved(03/28/21 10:17) kdr Condition: Stable(03/28/21 10:17) kdr Diagnosis - Dental abscess -right maxilla kdr Followup: kdr - With: Private Physician - When: As needed - Reason: If symptoms return, Further diagnostic work-up, Recheck today's complaints, Continuance of care, Re-evaluation by your physician Discharge Instructions: - Discharge Summary Sheet kdr - Dental Abscess, [id number] kdr Signatures: Dispatcher [facility] SystemNando [facility] MD MD kdr Cindy Mitchell RN RN Peter Nassar MD MD mh7 Karel Lyle RN RN as6 Corrections: (The following items were deleted from the chart) 08:02 Accepting physician kdr kdr 08:02 [facility] kdr kdr 08:02 Higher level of care kdr kdr 08:02 Fair kdr kdr 08:02 new kdr kdr 08: have improved kdr kdr 08:02 Dental abscess, right maxilla involving canine teeth kdr kdr 08:19 Nini kdr kdr
[2021-03-28 08:18] LABS: Urine Blood Trace-lysed (Negative); Urine Glucose Negative (Negative); Urine Protein Negative (Negative); Urine Specific Gravity 1.015 (1.005-1.030); Urine pH 6.5 (5.0-7.0)
[2021-03-28 09:32] LABS: Barbiturates NEGATIVE (NEGATIVE); Benzodiazepines POSITIVE (NEGATIVE); Cocaine NEGATIVE (NEGATIVE); METHAMPHETAM POSITIVE (NEGATIVE); Methadone NEGATIVE (NEGATIVE); Opiates POSITIVE (NEGATIVE); Phencyclidine NEGATIVE (NEGATIVE); THC Cannibis NEGATIVE (NEGATIVE)
[2021-03-28 10:52] VITALS: BP 129/88; TEMP 98.6; O2SAT 98
== END 2021-03-28 10:18 | disposition left against medical advice (07) ==
LOC: ER 02:52
DX: U07.1 COVID-19 (principal); K04.7 Periapical abscess without sinus; Z88.1 Allergy status to other antibiotic agents; Z88.5 Allergy status to narcotic agent
CPT/HCPCS: 96365; 96361; 87040 ×2; 85025; 80048; 36415; 85610; 80076; 85730; 81003; 80307; 70491; 96375; 99284; U0003; Q9967; J7030; J2405

== ENCOUNTER 2021-05-09 10:34 | Emergency (ER) | payer OTHER, SELFPAY ==
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
[2021-05-09 11:52] LABS: Urine Blood 1+ (Negative); Urine Glucose Negative (Negative); Urine Protein Trace (Negative); Urine Specific Gravity >=1.030 (1.005-1.030)
[2021-05-09] MEDS ORDERED: MORPHINE 4 MG/ML SYR ONE (12:50)
[2021-05-09] MEDS ORDERED: ONDANSETRON 4 MG/2 ML VIAL ONE (12:51)
[2021-05-09 12:53] LABS: ALT/SGPT 14 U/L (12-78); AST/SGOT 10 U/L (15-37); Albumin 3.7 g/dL (3.4-5.0); Alkaline Phosphatase 86 U/L (45-117); BUN Blood Urea Nitrogen 8 mg/dL (7-18); Bicarbonate 27 mmol/L (21-32); Bilirubin Direct < 0.1 mg/dL (0-0.2); Bilirubin Total 0.2 mg/dL (0.2-1.0); Glucose Level 107 mg/dL (74-106); Lipase 64 U/L (73-393); Potassium 3.7 mmol/L (3.5-5.1); Sodium Level 136 mmol/L (136-145)
[2021-05-09] MEDS ORDERED: NA CHLORIDE 0.9% 2,000 ML ONE (12:53)
[2021-05-09 12:54] LABS: Absolute Lymphocytes (CBC) 1.9 K/uL (0.7-4.9); Hematocrit 39.2 % (36.0-45.0); Lymphocytes % 14.1 % (15.3-44.8); MPV 8.4 fL (7.6-11.3); RBC Red Blood Cell Count 4.23 M/uL (3.86-4.86)
[2021-05-09 13:42] LABS: Urine Bacteria >50 /HPF (<20); Urine Mucus MOD /HPF (NONE SEEN); Urine RBC <5 /HPF (NONE SEEN)
[2021-05-09 13:51] LABS: Amylase 58 U/L (25-115); CKMB Creatine Kinase MB < 1.0 ng/mL (1.0-3.6); Creatine Phosphokinase 61 U/L (26-192)
--- NOTE | 2021-05-09 14:09 | RAD REPORT ---
EXAM DESCRIPTION: CT - Abdomen Pelvis W Contrast - 05/09/2021 1:46 pm CLINICAL HISTORY: ABD PAIN COMPARISON: Abdomen Pelvis W Contrast dated 02/13/2019 TECHNIQUE: Biphasic, helical CT imaging of the abdomen and pelvis was performed following 100 ml non -ionic IV contrast. No oral contrast administered. All CT scans are performed using dose optimization technique as appropriate and may include automated exposure control or mA/KV adjustment according to patient size. FINDINGS: No suspicious findings in the lung bases. The liver, spleen, and pancreas show no suspicious findings. Gallbladder and biliary tree are also wi thout suspicious finding. Symmetric renal function is seen with no hydronephrosis or suspicious renal mass. No pyelonephritis o r acute parenchymal process. A small 10 mm cyst is present lower pole of the right kidney. A punctate 3 mm nonobstructing calyx calculus noted upper pole left kidney. No adrenal abnormalities. Body and fundus of the uterus show no gross abnormality. There is questionable nabothian cysts in the cervix. Bilateral fallopian tube dilatation is present. There is enhancement of the alcantara of each fa llopian tube. Small ovarian cysts are present. No gastric dilatation or gastric wall thickening. No acute small bowel finding. The appendix is aby l. Mild wall thickening of the rectosigmoid junction is noted. This is believed to be secondary to th e fallopian tube process rather than a primary GI finding. No free air, pneumatosis or free fluid. There is mild congestion or edema in the tissues surroundin g the fallopian tubes. No hernia, mass or bulky lymphadenopathy. No suspicious bony findings. IMPRESSION: Bilateral pyosalpinx pattern is seen with fallopian tube dilatation and wall enhancement . Findings are more prominent than seen in 2019. PID is the primary consideration and needs correlation with history. No acute GI or process. Mild wall thickening at the rectosigmoid region may be artifact of perista lsis or possibly secondary reaction to the pyosalpinx.
--- NOTE | 2021-05-09 14:25 | RAD REPORT ---
EXAM DESCRIPTION: RAD - Chest Single View - 05/09/2021 1:06 pm CLINICAL HISTORY: PAIN COMPARISON: May 2018 TECHNIQUE: AP portable chest image was obtained 05/09/2021 1:06 pm . FINDINGS: Lung volumes are low. No peripheral mass or consolidation. Low lung volumes accentuate the perihilar lung markings. Heart and vasculature are normal. No measurable pleural effusion and no pne umothorax. No acute bony abnormality seen. No acute aortic findings suspected. IMPRESSION: No peripheral lung parenchymal process seen. No acute chest finding suspected. A minimal viral infiltrate process is not entirely excluded.
--- NOTE | 2021-05-09 14:26 | ER ---
Nurse's Notes [facility] Name: Geoff Sanz Age: 35 yrs Sex: Female : 1985 Arrival Date: 05/09/2021 Time: 10:37 Bed 25 Private MD: Diagnosis: Abdominal pain, Generalized;Female pelvic inflammatory disease, unspecified;UTI/ Urinary tract infection, site not specified Presentation: 05/09 11:36 Chief complaint: Patient states: RLQ abdominal pain radiates to groin and nausea x 1 jl7 day, denies urinary symptoms. Coronavirus screen: At this time, the client does not indicate any symptoms associated with coronavirus-19. Ebola Screen: No symptoms or risks identified at this time. Initial Sepsis Screen: Does the patient meet any 2 criteria? No. Patient's initial sepsis screen is negative. Does the patient have a suspected source of infection? No. Patient's initial sepsis screen is negative. Risk Assessment: Do you want to hurt yourself or someone else? Patient reports no desire to harm self or others. Onset of symptoms was May 08, 2021. 11:36 Method Of Arrival: Ambulatory jl7 11:36 Acuity: BERNADETTE 3 jl7 Triage Assessment: 11:37 General: Appears in no apparent distress. uncomfortable, Behavior is cooperative, jl7 crying. Pain: Complains of pain in right lower quadrant. GI: Reports nausea. 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 - Social history:: Smoking status: Patient reports the use of cigarette tobacco products, denies chronic smoking, but will smoke occasionally. Screenin:14 Abuse screen: Denies threats or abuse. Nutritional screening: No deficits noted. lr4 Tuberculosis screening: No symptoms or risk factors identified. Fall Risk None identified. Assessment: 11:59 General: Appears in no apparent distress. well developed, well nourished, Behavior is lr4 calm, cooperative. Pain: Complains of pain in abdomen Pain currently is 10 out of 10 on a pain scale. Quality of pain is described as crampy, Pain began gradually, 2-3 days ago. Is intermittent. Neuro: No deficits noted. Cardiovascular: No deficits noted. Respiratory: No deficits noted. GI: Reports lower abdominal pain, cramping, diarrhea, flatulence, gaseousness, nausea. 12:15 GI: Reports lower abdominal pain, cramping, diarrhea, flatulence, nausea, vomiting. : lr4 Reports burning with urination, cramping, in right lower quadrant(s). 12:16 GI: Bowel sounds present X 4 quads. Abdomen is tender to palpation in right lower lr4 quadrant. 13:42 Reassessment: Pt taken to CT. ph 14:09 Reassessment: Pt states she is feeling much better and rates her pain in RLQ now 8/10 lr4 after med administration. 14:41 Reassessment: D/C hold for abx administration completion.. lr4 15:10 Reassessment: Pt departed ed ambulatory with all personal effects, pt in nad,. lr4 Vital Signs: 11:36 BP 132 / 89; Pulse 105; Resp 19; Temp 98.2; Pulse Ox 97% ; Weight 58.06 kg; Height 4 jl7 ft. 11 in. (149.86 cm); Pain 10/10; 14:08 BP 119 / 64; Pulse 95; Resp 18; Pulse Ox 98% ; Pain 8/10; lr4 11:36 Body Mass Index 25.85 (58.06 kg, 149.86 cm) jl7 ED Course: 10:37 Patient arrived in ED. jj6 11:14 Nando Meyers MD is Attending Physician. kdr 11:37 Triage completed. jl7 11:37 Arm band placed on right wrist. jl7 11:52 Urine Dipstick-Ancillary Sent. mh5 12:14 Inserted saline lock: 20 gauge in left antecubital area, using aseptic technique. lr4 12:16 Patient has correct armband on for positive identification. Bed in low position. Door lr4 closed. Lights dimmed. Warm blanket given. Verbal reassurance given. Head of bed lowered. 12:32 Lipase Sent. lr4 12:32 Hepatic Function Sent. lr4 12:32 CBC with Diff Sent. lr4 12:32 Basic Metabolic Panel Sent. lr4 13:06 Chest Single View XRAY In Process Unspecified. EDMS 13:23 SARS-COV-2 RT PCR (Document "Date of Onset" if Symptomatic) Sent. lr4 13:25 Blood Culture Sent. lr4 13:25 CKMB Creatine Kinase MB Sent. lr4 13:25 Creatine Phosphokinase Sent. lr4 13:25 Amylase Sent. lr4 13:26 Urine Microscopic Only Sent. lr4 13:26 Troponin HS Sent. lr4 13:26 Procalcitonin Sent. lr4 13:27 Lactate Sent. lr4 13:27 Blood Culture Adult (2) Sent. lr4 13:27 Amylase, Serum Sent. lr4 13:27 CPK Sent. lr4 13:27 Ckmb Sent. lr4 13:37 EKG done, by ED staff, reviewed by Nando Meyers MD COVID swab sent to lab. mh5 13:46 CT Abd/Pelvis - IV Contrast Only In Process Unspecified. EDMS 14:09 No provider procedures requiring assistance completed. lr4 14:33 Urine Culture Sent. lr4 14:33 SARS-COV-2 RT PCR (Document "Date of Onset" if Symptomatic) Sent. lr4 14:33 Blood Culture Sent. lr4 15:09 IV discontinued. lr4 Administered Medications: 13:00 Drug: morphine 4 mg Route: IVP; Site: left antecubital; lr4 13:00 Drug: Zofran (Ondansetron) 4 mg Route: IVP; Site: left antecubital; lr4 13:12 Drug: NS 0.9% (30 ml/kg) 30 ml/kg Route: IV; Rate: bolus; Site: left antecubital; lr4 14:40 Follow up: IV Status: Completed infusion; IV Intake: 500ml lr4 14:30 Drug: Rocephin - (cefTRIAXone) 2 grams Route: IVPB; Infused Over: 30 mins; Site: left lr4 antecubital; 15:00 Follow up: IV Status: Completed infusion; IV Intake: 100ml lr4 Intake: 14:40 IV: 500ml; Total: 500ml. lr4 15:00 IV: 100ml; Total: 600ml. lr4 Outcome: 12:15 Condition: stable lr4 14:26 Discharge ordered by . kdr 14:40 Discharged to home lr4 14:40 Discharge instructions given to patient, Pt departed ed ambulatory with all personal effects, pt in nad, vss. 15:11 Patient left the ED. lr4 Addendum: 05/12/2021 10:47 Addendum: Culture Results: Positive urine culture. Bacteria is resistant to, has i w intermediate sensitivity, or is not tested against prescribed antibiotics. Report given to TABITHA for further evaluation and then to cuprous chloride operator for follow up with patient. Phone call Attempt #1 left voice mail. 11:50 Addendum: Culture Results: Prescription called-in to pharmacy of choice. Augmentin 875 i w BID X 7 days. Cornelius TAN. Signatures: Dispatcher [employer] EDMS Nando Meyers MD MD kdr Williams, Irene RN RN iw Ade Vidal RN RN Reji, Saida 5 Zoe Hall RN RN jl7 Sara Olivares6 Isabel Patino RN RN lr4
--- NOTE | 2021-05-09 14:26 | EDPHYS ---
Physician Documentation [facility] Name: Geoff Sanz Age: 35 yrs Sex: Female : 1985 Arrival Date: 05/09/2021 Time: 10:37 Bed 25 Private MD: ED Physician Nando Meyers HPI: 05/09 19:10 This 35 yrs old Female presents to ER via Ambulatory with complaints of kdr Abdominal Pain. 19:10 The patient presents with abdominal pain right lower quadrant. kdr 19:10 Onset: The symptoms/episode began/occurred gradually, 1 day(s) ago. The symptoms kdr radiate to the right flank. Associated signs and symptoms: Pertinent positives: nausea, Pertinent negatives: anorexia, blood in stools, chest pain, constipation, fever, vomiting, vomiting blood. The symptoms are described as achy, crampy, vague. Modifying factors: The symptoms are alleviated by nothing, the symptoms are aggravated by movement, pressure, touching the area, walking. Severity of pain: At its worst the pain was severe incapacitating just prior to arrival, in the emergency department the pain is unchanged. The patient has not experienced similar symptoms in the past. The patient has not recently seen a physician. 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 - Social history:: Smoking status: Patient reports the use of cigarette tobacco products, denies chronic smoking, but will smoke occasionally. ROS: 19:10 Constitutional: Negative for fever, chills, and weight loss, Eyes: Negative for injury, kdr pain, redness, and discharge, ENT: Negative for injury, pain, and discharge, Neck: Negative for injury, pain, and swelling, Cardiovascular: Negative for chest pain, palpitations, and edema, Respiratory: Negative for shortness of breath, cough, wheezing, and pleuritic chest pain, Back: Negative for injury and pain, MS/Extremity: Negative for injury and deformity, Skin: Negative for injury, rash, and discoloration, Neuro: Negative for headache, weakness, numbness, tingling, and seizure activity. Psych: Negative for depression, anxiety, suicide ideation, homicidal ideation, and hallucinations, Allergy/Immunology: Negative for hives, rash, and allergies, Endocrine: Negative for neck swelling, polydipsia, polyuria, polyphagia, and marked weight changes, Hematologic/Lymphatic: Negative for swollen nodes, abnormal bleeding, and unusual bruising. 19:10 Abdomen/GI: Positive for abdominal pain, nausea, Negative for constipation, abdominal cramps, abdominal distension, anorexia, dysphagia, hematemesis, black/tarry stool, rectal pain, rectal bleeding, bowel incontinence. 19:10 : Positive for urinary symptoms, flank pain, burning with urination, Negative for vaginal bleeding, vaginal discharge, vaginal itching, menstrual abnormality. Exam: 19:10 Constitutional: This is a well developed, well nourished patient who is awake, alert, kdr and in no acute distress. Head/Face: Normocephalic, atraumatic. Eyes: Pupils equal round and reactive to light, extra-ocular motions intact. Lids and lashes normal. Conjunctiva and sclera are non-icteric and not injected. Cornea within normal limits. Periorbital areas with no swelling, redness, or edema. Neck: Trachea midline, no thyromegaly or masses palpated, and no cervical lymphadenopathy. Supple, full range of motion without nuchal rigidity, or vertebral point tenderness. No Meningismus. Chest/axilla: Normal chest wall appearance and motion. Nontender with no deformity. No lesions are appreciated. Cardiovascular: Regular rate and rhythm with a normal S1 and S2. No gallops, murmurs, or rubs. Normal PMI, no JVD. No pulse deficits. Respiratory: Lungs have equal breath sounds bilaterally, clear to auscultation and percussion. No rales, rhonchi or wheezes noted. No increased work of breathing, no retractions or nasal flaring. Back: No spinal tenderness. No costovertebral tenderness. Full range of motion. Skin: Warm, dry with normal turgor. Normal color with no rashes, no lesions, and no evidence of cellulitis. MS/ Extremity: Pulses equal, no cyanosis. Neurovascular intact. Full, normal range of motion. Neuro: Awake and alert, GCS 15, oriented to person, place, time, and situation. Cranial nerves II-XII grossly intact. Motor strength 5/5 in all extremities. Sensory grossly intact. Cerebellar exam normal. Normal gait. Psych: Awake, alert, with orientation to person, place and time. Behavior, mood, and affect are within normal limits. 19:10 Abdomen/GI: Inspection: Bowel sounds: Palpation: soft, moderate abdominal tenderness, in the anterior aspect of right lateral abdomen, right upper quadrant, right lower quadrant and left lower quadrant. Vital Signs: 11:36 BP 132 / 89; Pulse 105; Resp 19; Temp 98.2; Pulse Ox 97% ; Weight 58.06 kg; Height 4 jl7 ft. 11 in. (149.86 cm); Pain 10/10; 14:08 BP 119 / 64; Pulse 95; Resp 18; Pulse Ox 98% ; Pain 8/10; lr4 11:36 Body Mass Index 25.85 (58.06 kg, 149.86 cm) jl7 MDM: 14:19 Data reviewed: vital signs, nurses notes, lab test result(s), radiologic studies. kdr Counseling: I had a detailed discussion with the patient and/or guardian regarding: the historical points, exam findings, and any diagnostic results supporting the discharge/admit diagnosis, lab results, radiology results. ED course: Stable in the ED. The CT revealed possible PID. The patient did not have any evidence of a tubo-ovarian abscess on the CT nor Garrick-Raphael Rico syndrome. Patient was otherwise stable.. 14:26 Patient medically screened. kdr 19:10 ED course: Patient felt much better at the time of discharge. She was happy with the [facility] provided the plan for discharge and follow-up. 05/09 11:51 Order name: Urine Dipstick-Ancillary; Complete Time: 13:55 EDNC 05/09 11:52 Order name: Urine --Ancillary (enter results); Complete Time: 13:55 eb 05/09 12:20 Order name: Basic Metabolic Panel; Complete Time: 13:55 kdr 05/09 12:20 Order name: CBC with Diff; Complete Time: 13:55 kdr 05/09 12:20 Order name: Hepatic Function; Complete Time: 13:55 kdr 05/09 12:20 Order name: Lipase; Complete Time: 13:55 kdr 05/09 12:35 Order name: Amylase, Serum kdr 05/09 12:35 Order name: Blood Culture Adult (2) kdr 05/09 12:35 Order name: CPK kdr 05/09 12:35 Order name: Ckmb kdr 05/09 12:35 Order name: Lactate; Complete Time: 13:55 kdr 05/09 12:35 Order name: Procalcitonin; Complete Time: 14:12 kdr 05/09 12:35 Order name: Protime (+inr) kdr 05/09 12:35 Order name: Ptt, Activated kdr 05/09 12:20 Order name: IV Saline Lock; Complete Time: 12:28 kdr 05/09 12:20 Order name: Labs collected and sent; Complete Time: 12:28 kdr 05/09 12:35 Order name: Troponin HS; Complete Time: 13:55 kdr 05/09 12:35 Order name: Urine Microscopic Only; Complete Time: 13:55 kdr 05/09 12:35 Order name: Chest Single View XRAY kdr 05/09 12:36 Order name: Amylase; Complete Time: 13:55 EDNC 05/09 12:36 Order name: Blood Culture EDNC 05/09 12:36 Order name: Creatine Phosphokinase; Complete Time: 13:55 EDNC 05/09 12:36 Order name: CKMB Creatine Kinase MB; Complete Time: 13:55 EDNC 05/09 12:36 Order name: SARS-COV-2 RT PCR (Document "Date of Onset" if Symptomatic) eb 05/09 12:56 Order name: CT Abd/Pelvis - IV Contrast Only; Complete Time: 14:12 kdr 05/09 13:43 Order name: Urine Culture EDNC 05/09 12:35 Order name: Accucheck; Complete Time: 13:25 kdr 05/09 12:35 Order name: Cardiac monitoring; Complete Time: 13:25 kdr 05/09 12:35 Order name: EKG - Nurse/Tech; Complete Time: 13:30 kdr 05/09 12:35 Order name: IV Saline Lock - Large Bore; Complete Time: 12:39 kdr 05/09 12:35 Order name: O2 Per Protocol; Complete Time: 12:39 kdr 05/09 12:35 Order name: O2 Sat Monitoring; Complete Time: 12:39 kdr 05/09 12:35 Order name: Urine Dipstick-Ancillary (obtain specimen); Complete Time: 12:39 kdr Administered Medications: 13:00 Drug: morphine 4 mg Route: IVP; Site: left antecubital; lr4 13:00 Drug: Zofran (Ondansetron) 4 mg Route: IVP; Site: left antecubital; lr4 13:12 Drug: NS 0.9% (30 ml/kg) 30 ml/kg Route: IV; Rate: bolus; Site: left antecubital; lr4 14:40 Follow up: IV Status: Completed infusion; IV Intake: 500ml lr4 14:30 Drug: Rocephin - (cefTRIAXone) 2 grams Route: IVPB; Infused Over: 30 mins; Site: left lr4 antecubital; 15:00 Follow up: IV Status: Completed infusion; IV Intake: 100ml lr4 Disposition Summary: 05/09/21 14:26 Discharge Ordered Location: Home kdr Problem: new kdr Symptoms: have improved kdr Condition: Stable kdr Diagnosis - Abdominal pain, Generalized kdr - Female pelvic inflammatory disease, unspecified kdr - UTI/ Urinary tract infection, site not specified kdr Followup: kdr - With: Private Physician - When: 2 - 3 days - Reason: If symptoms return, Further diagnostic work-up, Recheck today's complaints, Continuance of care, Re-evaluation by your physician Discharge Instructions: - Discharge Summary Sheet kdr - Pelvic Inflammatory Disease kdr - Urinary Tract Infection, Adult, [id number] kdr - Abdominal Pain, Adult, [id number] kdr Forms: - Medication Reconciliation Form kdr - Thank You Letter kdr - Antibiotic Education kdr - Prescription Opioid Use kdr Prescriptions: - Flagyl 500 mg Oral Tablet - take 1 tablet by ORAL route every 12 hours for 14 days; 28 tablet; Refills: 0, kdr Product Selection Permitted - Pyridium 200 mg Oral Tablet - take 1 tablet by ORAL route every 8 hours for 3 days; 9 tablet; Refills: 0, kdr Product Selection Permitted - Doxycycline Hyclate 100 mg Oral Tablet - take 1 tablet by ORAL route every 12 hours; 28 tablet; Refills: 0, Product kdr Selection Permitted - Tylenol-Codeine #3 300 mg-30 mg Oral - take 1 tablet by ORAL route every 4-6 hours As needed; 12 tablet; Refills: 0, kdr Product Selection Permitted Signatures: Dispatcher [employer] Nando Ellis MD MD kdr Zoe Hall RN RN jl7 Patino, Isabel, RN RN lr4
[2021-05-09] MEDS ORDERED: CEFTRIAXONE 1000 MG/VIAL ONE (14:37)
[2021-05-09] MEDS ORDERED: NA CHLORIDE 0.9% 100 ML IV ONE (14:37)
[2021-05-09 15:04] LABS: Protime INR 0.99
[2021-05-09 15:43] VITALS: BP 119/64; O2SAT 98
[2021-05-09 15:46] VITALS: TEMP 98.2
== END 2021-05-09 15:11 | disposition home or self-care (01) ==
LOC: ER 10:34
DX: N39.0 Urinary tract infection, site not specified (principal); N73.9 Female pelvic inflammatory disease, unspecified; Z20.822 Contact with and (suspected) exposure to COVID-19; Z88.3 Allergy status to other anti-infective agents; Z88.5 Allergy status to narcotic agent
CPT/HCPCS: 96365; 93005; 87040 ×2; 87088; 85025; 87086; 80048; 36415; 82150; 82550; 81025; 85610; 80076; 83605; 85730; 87077; 87186; 84484; 82553; 83690; 84145; 74177; 71045; 96375; 99284; U0003; Q9967; J7030; J2405; 81003; 81015

== ENCOUNTER 2021-05-21 02:00 | Emergency (ER) | payer SELFPAY ==
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
[2021-05-21] MEDS ORDERED: KETOROLAC 30 MG/ML INJ ONE (02:14)
[2021-05-21] MEDS ORDERED: dexAMETHasone 10 MG/ML VIAL ONE (02:14)
[2021-05-21] MEDS ORDERED: ONDANSETRON 4 MG (ODT) TAB ONE (02:31)
[2021-05-21] MEDS ORDERED: HYDROCODONE/APAP 10/325 TAB ONE (02:58)
--- NOTE | 2021-05-21 03:18 | EDPHYS ---
Physician Documentation [facility] Name: Geoff Sanz Age: 35 yrs Sex: Female : 1985 Arrival Date: 05/21/2021 Time: 02:03 Bed 15 Private MD: ED Physician Tee Hernandez HPI: 05/21 02:04 This 35 yrs old Female presents to ER via Unassigned with complaints of dental rn pain. 02:04 The patient presents with pain. The problem is located in the . Onset: The rn symptoms/episode began/occurred just prior to arrival. Duration: The symptoms are continuous. Modifying factors: The symptoms are alleviated by nothing, the symptoms are aggravated by air, chewing, talking. Associated signs and symptoms: Pertinent positives: pain, Pertinent negatives: fever, inability to eat, swelling. Severity of symptoms: At their worst the symptoms were moderate, in the emergency department the symptoms are unchanged. The patient has experienced similar episodes in the past. The patient has not recently seen a physician. Pt reports toothache that got worse tonight, thinks cap fell off a tooth. No fever. No trauma. Reports multiple bad teeth. . 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 - Social history:: Smoking status: Patient reports the use of cigarette tobacco products, denies chronic smoking, but will smoke occasionally. - Family history:: not pertinent. - Hospitalizations: : No recent hospitalization is reported. ROS: 02:04 Constitutional: Negative for fever, chills, and weight loss, Eyes: Negative for injury, rn pain, redness, and discharge, ENT: + dental pain Cardiovascular: Negative for chest pain, palpitations, and edema, Respiratory: Negative for shortness of breath, cough, wheezing, and pleuritic chest pain. Exam: 02:04 Constitutional: This is a well developed, well nourished patient who is awake, alert, rn uncomfortable Head/Face: Normocephalic, atraumatic. Eyes: Periorbital areas with no swelling, redness, or edema. ENT: + poor dentition, no swelling or abscess. No buccal space swelling or fluctuance. Neck: Trachea midline, no masses palpated, and no cervical lymphadenopathy. Supple, full range of motion without nuchal rigidity, or vertebral point tenderness. No Meningismus. Vital Signs: 02:17 BP 115 / 82 LA Sitting (auto/reg); Pulse 107 MON; Resp 22 S; Temp 98.7(O); Pulse Ox sv1 100% on R/A; Pain 10/10; 04:00 BP 130 / 82 Sitting (auto/reg); Pulse 88 MON; Resp 20 S; Pulse Ox 100% on R/A; Pain sv1 4/10; MDM: 02:03 Patient medically screened. rn 03:16 Differential diagnosis: dental caries, gingivitis. Data reviewed: vital signs, nurses rn notes, and as a result, I will discharge patient. Counseling: I had a detailed discussion with the patient and/or guardian regarding: the historical points, exam findings, and any diagnostic results supporting the discharge/admit diagnosis, the need for outpatient follow up, to return to the emergency department if symptoms worsen or persist or if there are any questions or concerns that arise at home. Special discussion: I discussed with the patient/guardian in detail that at this point there is no indication for admission to the hospital. It is understood, however, that if the symptoms persist or worsen the patient needs to return immediately for re-evaluation. Based on the history and exam findings, there is no indication for further emergent testing or inpatient evaluation. I discussed with the patient/guardian the need to see a dentist for further evaluation of the symptoms. Administered Medications: 02:16 Drug: Decadron (dexamethasone) 10 mg Route: IM; Site: right deltoid; sv1 02:48 Follow up: Response: No adverse reaction; Pain is decreased sv1 02:17 Drug: Ketorolac 30 mg Route: IM; Site: right deltoid; sv1 02:48 Follow up: Response: No adverse reaction; Pain is decreased sv1 02:57 Drug: [place] (HYDROcodone-acetaminophen) 10 mg-325 mg 1 tabs Route: PO; sv1 04:00 Follow up: BP 130 / 82 Sitting Left Arm Auto Regular; Pulse 88 bpm Monitor; Resp 20 bpm sv1 Spontaneous; Pulse Ox 100% RA; Pain 07/04 Adult 02:58 Drug: Zofran (Ondansetron) 4 mg Route: PO; sv1 04:02 Follow up: Response: No adverse reaction; Nausea is decreased sv1 Disposition Summary: 05/21/21 03:17 Discharge Ordered Location: Home rn Problem: new rn Symptoms: have improved rn Condition: Stable rn Diagnosis - Dental caries, unspecified rn Followup: rn - With: Private Physician - When: As needed - Reason: Recheck today's complaints, Re-evaluation by your physician Discharge Instructions: - Discharge Summary Sheet rn - Dental Caries, Adult rn - Dental Pain rn Forms: - Medication Reconciliation Form rn - Thank You Letter rn - Antibiotic rn security - Prescription Opioid Use rn Prescriptions: - Medrol (Nima) 4 mg Oral Tablets, Dose Pack - take 1 tablet by ORAL route as directed - follow package instructions; 1 rn packet; Refills: 0, Product Selection Permitted Signatures: Tee Hernandez MD MD rn Villicano, Steven, RN RN sv1
--- NOTE | 2021-05-21 03:18 | ER ---
Nurse's Notes [facility] Name: Geoff Sanz Age: 35 yrs Sex: Female : 1985 Arrival Date: 05/21/2021 Time: 02:03 Bed 15 Private MD: Diagnosis: Dental caries, unspecified Presentation: 05/21 02:21 Chief complaint: Patient states: left upper mouth. Coronavirus screen: Client denies sv1 travel out of the [place] in the last 14 days. At this time, the client does not indicate any symptoms associated with coronavirus-19. Ebola Screen: No symptoms or risks identified at this time. Initial Sepsis Screen: Does the patient meet any 2 criteria? No. Patient's initial sepsis screen is negative. Risk Assessment: Do you want to hurt yourself or someone else? Patient reports no desire to harm self or others. Onset of symptoms was May 16, 2021. 02:21 Method Of Arrival: EMS: [facility] sv1 02:21 Acuity: BERNADETTE 3 sv1 02:24 Initial Sepsis Screen: Does the patient have a suspected source of infection? No. sv1 Patient's initial sepsis screen is negative. Triage Assessment: 02:21 General: Appears distressed, ill, Behavior is crying, restless. 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 - Social history:: Smoking status: Patient reports the use of cigarette tobacco products, denies chronic smoking, but will smoke occasionally. - Family history:: not pertinent. - Hospitalizations: : No recent hospitalization is reported. Screenin:20 Abuse screen: Denies threats or abuse. Nutritional screening: No deficits noted. sv1 Tuberculosis screening: No symptoms or risk factors identified. Fall Risk None identified. Assessment: 02:19 Pain: Complains of pain in mouth Pain radiates to neck. EENT: Reports difficulty sv1 swallowing since 2 - 3 days ago. Vital Signs: 02:17 BP 115 / 82 LA Sitting (auto/reg); Pulse 107 MON; Resp 22 S; Temp 98.7(O); Pulse Ox sv1 100% on R/A; Pain 10/10; 04:00 BP 130 / 82 Sitting (auto/reg); Pulse 88 MON; Resp 20 S; Pulse Ox 100% on R/A; Pain sv1 4/10; ED Course: 02:03 Patient arrived in ED. rn 02:03 Tee Hernandez MD is Attending Physician. rn 02:08 Malachi Castillo RN is Primary Nurse. sv1 02:17 Arm band placed on left wrist. sv1 02:20 Patient has correct armband on for positive identification. Call light in reach. Side sv1 rails up X2. 02:20 No provider procedures requiring assistance completed. sv1 02:22 Triage completed. sv1 04:03 Patient did not have IV access during this emergency room visit. sv1 Administered Medications: 02:16 Drug: Decadron (dexamethasone) 10 mg Route: IM; Site: right deltoid; sv1 02:48 Follow up: Response: No adverse reaction; Pain is decreased sv1 02:17 Drug: Ketorolac 30 mg Route: IM; Site: right deltoid; sv1 02:48 Follow up: Response: No adverse reaction; Pain is decreased sv1 02:57 Drug: [place] (HYDROcodone-acetaminophen) 10 mg-325 mg 1 tabs Route: PO; sv1 04:00 Follow up: BP 130 / 82 Sitting Left Arm Auto Regular; Pulse 88 bpm Monitor; Resp 20 bpm sv1 Spontaneous; Pulse Ox 100% RA; Pain 4/10 Adult 02:58 Drug: Zofran (Ondansetron) 4 mg Route: PO; sv1 04:02 Follow up: Response: No adverse reaction; Nausea is decreased sv1 Outcome: 03:17 Discharge ordered by . rn 04:03 Discharged to home sv1 04:03 Condition: improved 04:03 Instructed on discharge instructions, follow up and referral plans. 04:04 Patient left the ED. sv1 Signatures: Tee Hernandez MD MD rn Villicano, Steven, RN RN sv1
[2021-05-21 04:17] VITALS: TEMP 98.7; O2SAT 100
[2021-05-21 04:18] VITALS: BP 130/82
== END 2021-05-21 04:04 | disposition home or self-care (01) ==
LOC: ER 02:00
DX: K02.9 Dental caries, unspecified (principal); F17.210 Nicotine dependence, cigarettes, uncomplicated; Z88.3 Allergy status to other anti-infective agents; Z88.5 Allergy status to narcotic agent
CPT/HCPCS: 96372; 99283; J1100

== ENCOUNTER 2022-02-28 07:08 | Emergency (ER) | payer SELFPAY ==
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
[2022-02-28] MEDS ORDERED: DIPHENHYDRAMINE 50 MG/ML VIAL ONE (07:34)
[2022-02-28] MEDS ORDERED: METOCLOPRAMIDE 10 MG/2mL INJ ONE (07:34)
[2022-02-28] MEDS ORDERED: NA CHLORIDE 0.9% 1,000 ML ONE (07:35)
[2022-02-28] MEDS ORDERED: LORazepam 2 MG/ML VIAL ONE (07:35)
[2022-02-28 07:56] LABS: Absolute Lymphocytes (CBC) 2.2 K/uL (0.7-4.9); Hematocrit 34.8 % (36.0-45.0); Lymphocytes % 24.2 % (15.3-44.8); MCV 89.4 fL (80-100); MPV 7.7 fL (7.6-11.3); RBC Red Blood Cell Count 3.89 M/uL (3.86-4.86)
[2022-02-28 08:14] LABS: Albumin 3.6 g/dL (3.4-5.0); Bilirubin Total 0.2 mg/dL (0.2-1.0); Potassium 3.6 mmol/L (3.5-5.1); Protein, Total 6.9 g/dL (6.4-8.2)
[2022-02-28] MEDS ORDERED: MORPHINE 4 MG/ML SYR ONE (08:50)
[2022-02-28] MEDS ORDERED: KETOROLAC 30 MG/ML INJ ONE (08:51)
[2022-02-28] MEDS ORDERED: ONDANSETRON 4 MG/2 ML VIAL ONE (08:51)
[2022-02-28 09:54] LABS: SARS-COV-2 RT PCR NEGATIVE (NEGATIVE)
[2022-02-28 10:47] LABS: Urine Blood Trace-intact (Negative); Urine Glucose Negative (Negative); Urine Protein Negative (Negative); Urine Specific Gravity 1.025 (1.005-1.030)
[2022-02-28 11:32] LABS: Urine Specific Gravity/Preg 1.025 (1.005-1.030)
--- NOTE | 2022-02-28 12:01 | RAD REPORT ---
EXAM DESCRIPTION: CT - Abdomen Pelvis W Contrast - 02/28/2022 11:01 am CLINICAL HISTORY: abdominal pain, vomiting COMPARISON: Abdomen Pelvis W Contrast dated 05/09/2021 TECHNIQUE: Biphasic, helical CT imaging of the abdomen and pelvis was performed following 100 ml non -ionic IV contrast. Oral contrast: No. All CT scans are performed using dose optimization technique as appropriate and may include automated exposure control or mA/KV adjustment according to patient size. FINDINGS: No suspicious findings in the lung bases. The liver, spleen, and pancreas show no suspicious findings. Gallbladder and biliary tree are also wi thout suspicious finding. Symmetric renal function is seen with no hydronephrosis or suspicious renal mass. No pyelonephritis o r acute parenchymal process. Urinary bladder is contracted. No bladder stones seen. No adrenal abnorm alities. Uterus and ovaries are grossly normal. Small 10 mm or less sized cysts or follicles seen in each ovary. No cyst rupture or hemorrhage seen. No dilated fallopian tubes identifiable. No dilated bowel loops or bowel wall thickening. No findings for appendicitis. No free air, free flui d or inflammatory stranding. No hernia, mass or bulky lymphadenopathy. No suspicious bony findings. IMPRESSION: Contrast enhanced CT abdomen and pelvis showing no acute or emergent finding.
--- NOTE | 2022-02-28 12:07 | EDPHYS ---
Physician Documentation [facility] Name: Geoff Sanz Age: 36 yrs Sex: Female : 1985 Arrival Date: 02/28/2022 Time: 07:09 Bed 4 Private MD: ED Physician Nando Meyers HPI: 02/28 12:04 This 36 yrs old Female presents to ER via EMS with complaints of abdominal jmm pain. 12:04 The patient presents with abdominal pain. Onset: The symptoms/episode began/occurred jmm gradually. This is a 36 year old female that presents to the ED with complaints of abdominal pain, vomiting, diarrhea, beginning approx 4 days ago. Denies fever. Denies cough, sore throat. . 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 - Social history:: Smoking status: Patient denies any tobacco usage or history of. Patient/guardian denies using alcohol, street drugs, IV drugs. ROS: 12:04 Constitutional: Negative for fever, chills, and weight loss, Cardiovascular: Negative jmm for chest pain, palpitations, and edema, Respiratory: Negative for shortness of breath, cough, wheezing, and pleuritic chest pain. 12:04 Abdomen/GI: Positive for abdominal pain, vomiting. 12:04 All other systems are negative. Exam: 12:04 Constitutional: This is a well developed, well nourished patient who is awake, alert, jmm and in no acute distress. Head/Face: atraumatic. Eyes: EOMI, no conjunctival erythema appreciated ENT: Moist Mucus Membranes Neck: Trachea midline, Supple Chest/axilla: Normal chest wall appearance and motion. Cardiovascular: Regular rate and rhythm. No edema appreciated Respiratory: Normal respirations, no respiratory distress appreciated Abdomen/GI: Non distended Back: Normal ROM Skin: General appearance color normal MS/ Extremity: Moves all extremities, no obvious deformities appreciated, no edema noted to the lower extremities Neuro: Awake and alert Psych: Behavior is normal, Mood is normal, Patient is cooperative and pleasant Vital Signs: 07:10 BP 150 / 90; Pulse 75; Resp 18; Temp 98.1(O); Pulse Ox 100% on R/A; Weight 54.43 kg; mb9 Height 5 ft. 0 in. (152.40 cm); Pain 10/10; 07:56 BP 130 / 91; Pulse 80; Resp 18; Pulse Ox 100% on R/A; Pain 10/10; mb9 08:41 BP 132 / 84; Pulse 82; Resp 18; Pulse Ox 100% ; Pain 10/10; mb9 09:00 BP 153 / 82; Pulse 62; Resp 18; Pulse Ox 100% on R/A; 9 10:00 BP 148 / 89; Pulse 60; Resp 14; Pulse Ox 100% ; mb9 10:48 BP 136 / 89; Pulse 74; Resp 16; Pulse Ox 100% ; 9 12:05 BP 140 / 91; Pulse 60; Resp 16; Pulse Ox 100% on R/A; 9 07:10 Body Mass Index 23.44 (54.43 kg, 152.40 cm) [facility] MDM: 07:20 Patient medically screened. [facility] 12:06 Data reviewed: vital signs, nurses notes. Counseling: I had a detailed discussion with [facility] the patient and/or guardian regarding: the historical points, exam findings, and any diagnostic results supporting the discharge/admit diagnosis, the need for outpatient follow up, to return to the emergency department if symptoms worsen or persist or if there are any questions or concerns that arise at home. 02/28 07:21 Order name: CBC with Diff; Complete Time: 07:58 [facility] 02/28 07:21 Order name: CMP; Complete Time: 08:16 [facility] 02/28 07:21 Order name: Lipase; Complete Time: 08:16 [facility] 02/28 08:45 Order name: COVID-19/FLU A+B; Complete Time: 10:04 [facility] 02/28 10:48 Order name: Urine Dipstick-Ancillary; Complete Time: 10:55 [facility] 02/28 10:50 Order name: Urine --Ancillary (enter results); Complete Time: 11:33 02/28 07:22 Order name: CT Abd/Pelvis - IV Contrast Only; Complete Time: 12:03 [facility] 02/28 07:21 Order name: IV Saline Lock; Complete Time: 07:47 [facility] 02/28 07:21 Order name: Labs collected and sent; Complete Time: 07:47 [facility] 02/28 07:21 Order name: Urine Dipstick-Ancillary (obtain specimen); Complete Time: 10:48 [facility] 02/28 09:39 Order name: Urine Test (obtain specimen); Complete Time: 10:48 [facility] Administered Medications: 07:40 Drug: diphenhydrAMINE 25 mg Route: IVP; Site: left forearm; mb9 08:38 Follow up: Response: No adverse reaction mb9 07:46 Drug: Reglan (metoCLOPramide) 20 mg Route: IVP; Site: left forearm; mb9 08:38 Follow up: Response: No adverse reaction mb9 07:46 Drug: Ativan (LORazepam) 1 mg Route: IVP; Site: left forearm; mb9 08:38 Follow up: Response: No adverse reaction mb9 07:47 Drug: NS 0.9% 1000 ml Route: IV; Rate: 1 bolus; Site: left forearm; mb9 08:38 Follow up: Response: No adverse reaction; IV Status: Completed infusion mb9 08:47 Not Given (Other Intervention Used; nott): Promethazine 12.5 mg IVP once [facility] 08:58 Drug: morphine 4 mg Route: IVP; Infused Over: 4 mins; Site: left forearm; mb9 11:21 Follow up: Response: No adverse reaction mb9 08:58 Drug: Ketorolac 30 mg Route: IVP; Site: left forearm; mb9 11:21 Follow up: Response: No adverse reaction mb9 08:58 Drug: Zofran (Ondansetron) 4 mg Route: IVP; Site: left forearm; mb9 11:20 Follow up: Response: No adverse reaction mb9 Disposition: 16:17 Co-signature as Attending Physician, Nando Meyers MD I agree with the assessment and kdr plan of care. Disposition Summary: 02/28/22 12:07 Discharge Ordered Location: Home [facility] Condition: Stable [facility] Diagnosis - Vomiting jmm - Diarrhea, unspecified jmm Followup: [facility] - With: Private Physician - When: 2 - 3 days - Reason: Recheck today's complaints, Continuance of care, Re-evaluation by your physician Discharge Instructions: - Discharge Summary Sheet jmm - Diarrhea, Adult jmm - Vomiting, Adult jmm Forms: - Medication Reconciliation Form [facility] - Thank You Letter [facility] - Antibiotic Education m - Prescription Opioid Use [facility] Prescriptions: - ondansetron 4 mg odt - take 1 tablet by SUBLINGUAL route every 4 hours As needed; 20 tablet; Refills: [facility] 0, Product Selection Permitted - Cephalexin 500 mg Oral Capsule - take 1 capsule by ORAL route every 8 hours for 10 days; 30 capsule; Refills: 0, [facility] Product Selection Permitted - dicyclomine 20 mg Oral Tablet - take 1 tablet by ORAL route 4 times per day; 20 tablet; Refills: 0, Product [facility] Selection Permitted Signatures: Dispatcher [employer] Nando Ellis MD MD kdr Mickail, Joel, PA PA jmm Breneman, Mary Beth, RN RN mb9 Corrections: (The following items were deleted from the chart) 08:19 07:21 Urine Test ordered. [facility] mb9 12: 12:10 PMHx: drug abuse; 9 mb9 12: 12:10 PMHx: pelvic inflammatory disease; [email or web address] mb9 12: 12:10 PSHx: section; 9 mb9
--- NOTE | 2022-02-28 12:07 | ER ---
Nurse's Notes [facility] Name: Geoff Sanz Age: 36 yrs Sex: Female : 1985 Arrival Date: 02/28/2022 Time: 07:09 Bed 4 Private MD: Diagnosis: Vomiting;Diarrhea, unspecified Presentation: 02/28 07:10 Chief complaint: EMS states: pt has abdominal pain, nausea, vomiting, and diarrhea for mb9 3 days straight. Pt complains of chills and states shes never had pain like this before. Coronavirus screen: Vaccine status: Patient reports receiving the 2nd dose of the covid vaccine. Ebola Screen: No symptoms or risks identified at this time. Initial Sepsis Screen: Does the patient meet any 2 criteria? No. Patient's initial sepsis screen is negative. Does the patient have a suspected source of infection? No. Patient's initial sepsis screen is negative. Risk Assessment: Do you want to hurt yourself or someone else? Patient reports no desire to harm self or others. Onset of symptoms was February 25, 2022. 07:10 Method Of Arrival: EMS: [facility] mb9 07:10 Acuity: BERNADETTE 3 mb9 Triage Assessment: 07:14 General: Appears uncomfortable, Behavior is combative, crying. Pain: Complains of pain mb9 in abdomen Pain does not radiate. Pain currently is 10 out of 10 on a pain scale. Quality of pain is described as aching, throbbing, Is continuous. EENT: No signs and/or symptoms were reported regarding the EENT system. Neuro: Level of Consciousness is awake, alert, obeys commands, Oriented to person, place, time, situation, Appropriate for age Pupils are non-reactive, pinpoint. Cardiovascular: Heart tones S1 S2 present Rhythm is regular. Respiratory: Airway is patent Respiratory effort is even, unlabored, Respiratory pattern is regular, symmetrical, Breath sounds are clear bilaterally. GI: Abdomen is flat, non-distended, Bowel sounds present X 4 quads. Abd is soft Abdomen is tender to palpation X 4 quads. Reports cramping, diarrhea, nausea, vomiting. GI: Pt is actively vomiting. : No signs and/or symptoms were reported regarding the genitourinary system. Derm: Skin is pink, warm \\T\\ dry. Musculoskeletal: Range of motion: intact in all extremities. 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 - Social history:: Smoking status: Patient denies any tobacco usage or history of. Patient/guardian denies using alcohol, street drugs, IV drugs. Screenin:14 Abuse screen: Denies threats or abuse. Nutritional screening: No deficits noted. mb9 Tuberculosis screening: No symptoms or risk factors identified. Fall Risk None identified. Assessment: 07:47 General: Appears uncomfortable, Behavior is anxious, crying, restless. Pain: Complains mb9 of pain in abdomen Pain does not radiate. Pain currently is 10 out of 10 on a pain scale. Quality of pain is described as aching, crampy, Pain began 2-3 days ago. Is continuous, Alleviated by nothing. Neuro: Level of Consciousness is awake, alert, obeys commands, Oriented to person, place, time, situation, Appropriate for age Pupils are non-reactive, pinpoint. Cardiovascular: Rhythm is regular. Respiratory: Airway is patent Respiratory effort is even, unlabored, Respiratory pattern is regular, symmetrical, Breath sounds are clear bilaterally. GI: Abdomen is flat, non-distended, Pt is actively vomiting Bowel sounds present X 4 quads. Abd is soft Abdomen is tender to palpation X 4 quads. Reports diarrhea, nausea, vomiting. Derm: Skin is pink, warm \\T\\ dry. 08:39 Reassessment: pt states "I want to go home so I can sleep. I don't want my CT scan." mb9 Deacon ALVAREZ, notified. 08:41 Reassessment: pt complaining of severe pain in adbomen and nausea. Pt states pain is mb9 10/10 that is aching. ANTONIO notified. 09:48 Reassessment: Patient states feeling better. Patient states symptoms have improved. mb9 10:48 Neuro: Level of Consciousness is awake, alert, obeys commands, Oriented to person, mb9 place, time, situation, Appropriate for age. 10:48 Cardiovascular: Rhythm is regular. Respiratory: Airway is patent. Derm: Skin is pink, mb9 warm \\T\\ dry. 10:52 Reassessment: Pt taken to CT scan via wheelchair. mb9 11:54 Reassessment: pt currently sleeping. Airway patent. Respirations are even and unlabored.mb9 Vital Signs: 07:10 BP 150 / 90; Pulse 75; Resp 18; Temp 98.1(O); Pulse Ox 100% on R/A; Weight 54.43 kg; mb9 Height 5 ft. 0 in. (152.40 cm); Pain 10/10; 07:56 BP 130 / 91; Pulse 80; Resp 18; Pulse Ox 100% on R/A; Pain 10/10; mb9 08:41 BP 132 / 84; Pulse 82; Resp 18; Pulse Ox 100% ; Pain 10/10; mb9 09:00 BP 153 / 82; Pulse 62; Resp 18; Pulse Ox 100% on R/A; mb9 10:00 BP 148 / 89; Pulse 60; Resp 14; Pulse Ox 100% ; mb9 10:48 BP 136 / 89; Pulse 74; Resp 16; Pulse Ox 100% ; mb9 12:05 BP 140 / 91; Pulse 60; Resp 16; Pulse Ox 100% on R/A; mb9 07:10 Body Mass Index 23.44 (54.43 kg, 152.40 cm) mb9 ED Course: 07:09 Patient arrived in ED. mb9 07:12 Triage completed. mb9 07:12 Arm band placed on. mb9 07:14 Adrian Worthy PA is PHCP. jmm 07:14 Placed in gown. Bed in low position. Call light in reach. Side rails up X 1. Client mb9 placed on continuous cardiac and pulse oximetry monitoring. NIBP monitoring applied. 07:19 Alyce Piña, RN is Primary Nurse. mb9 07:45 Inserted saline lock: 20 gauge in left forearm, using aseptic technique. Blood mb9 collected. 07:47 CBC with Diff Sent. mb9 07:47 CMP Sent. mb9 07:47 Lipase Sent. mb9 09:03 COVID-19/FLU A+B Sent. mb9 11:03 CT Abd/Pelvis - IV Contrast Only In Process Unspecified. EDMS 12:05 No provider procedures requiring assistance completed. mb9 12:08 Nando Meyers MD is Attending Physician. jmm 12:10 IV discontinued, intact, bleeding controlled, No redness/swelling at site. Pressure mb9 dressing applied. Administered Medications: 07:40 Drug: diphenhydrAMINE 25 mg Route: IVP; Site: left forearm; mb9 08:38 Follow up: Response: No adverse reaction mb9 07:46 Drug: Reglan (metoCLOPramide) 20 mg Route: IVP; Site: left forearm; mb9 08:38 Follow up: Response: No adverse reaction mb9 07:46 Drug: Ativan (LORazepam) 1 mg Route: IVP; Site: left forearm; mb9 08:38 Follow up: Response: No adverse reaction mb9 07:47 Drug: NS 0.9% 1000 ml Route: IV; Rate: 1 bolus; Site: left forearm; mb9 08:38 Follow up: Response: No adverse reaction; IV Status: Completed infusion mb9 08:47 Not Given (Other Intervention Used; nott): Promethazine 12.5 mg IVP once jmm 08:58 Drug: morphine 4 mg Route: IVP; Infused Over: 4 mins; Site: left forearm; mb9 11:21 Follow up: Response: No adverse reaction mb9 08:58 Drug: Ketorolac 30 mg Route: IVP; Site: left forearm; mb9 11:21 Follow up: Response: No adverse reaction mb9 08:58 Drug: Zofran (Ondansetron) 4 mg Route: IVP; Site: left forearm; mb9 11:20 Follow up: Response: No adverse reaction mb9 Medication: 07:14 VIS not applicable for this client. mb9 Outcome: 12:07 Discharge ordered by . mario 12:10 Discharged to home ambulatory. mb9 12:10 Condition: stable 12:10 Discharge instructions given to patient, Instructed on discharge instructions, follow up and referral plans. Demonstrated understanding of instructions, follow-up care, medications, Prescriptions given X 3. 12:17 Patient left the ED. mb9 Signatures: Dispatcher [employer] EDMS Adrian Worthy PA PA jmm Breneman, Mary Beth RN RN mb9 Corrections: (The following items were deleted from the chart) 12:11 12:10 PMHx: drug abuse; mb9 9 12:11 12:10 PMHx: pelvic inflammatory disease; mb9 9 12:11 12:10 PSHx: section; mb9 mb9
[2022-02-28 12:24] VITALS: TEMP 98.1; O2SAT 100
[2022-02-28 12:31] VITALS: BP 140/91
== END 2022-02-28 12:17 | disposition home or self-care (01) ==
LOC: ER 07:08
DX: R11.10 Vomiting, unspecified (principal); R19.7 Diarrhea, unspecified; Z20.822 Contact with and (suspected) exposure to COVID-19
CPT/HCPCS: 0240U; 36415; 74177; 80053; 81003; 81025; 83690; 85025; 96361; 96374; 96375; 99285; J1200; J2405; J2765; J7030; Q9967

== ENCOUNTER 2022-08-11 04:42 | Emergency (ER) | payer SELFPAY ==
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
[2022-08-11 06:37] VITALS: BP 150/98; TEMP 97.9; O2SAT 100
== END 2022-08-11 06:29 | disposition left against medical advice (07) ==
LOC: ER 04:42
DX: Z53.21 Procedure and treatment not carried out due to patient leaving prior to being seen by health care provider (principal)
CPT/HCPCS: 99281

== ENCOUNTER → 2023-03-23 | Emergency (ER) | payer SELFPAY ==
[~2023-03-23] MED LIST: CEFTRIAXONE 1000 MG/VIAL ONE; DOXYCYCLINE 100 MG CAP PO ONE; SMZ./TMP. 800/160 MG TABLET ONE; WATER FOR INJ,STERILE 10 ML ONE
--- NOTE | 2023-03-23 03:25 | ER ---
Nurse's Notes [facility]ith[facility] Name: Geoff Sanz Age: 37 yrs Sex: Female : 1985 Arrival Date: 03/23/2023 Time: 03:02 Bed 8 Private MD: Diagnosis: Abuse of other non-psychoactive substances-IVDA, METHAMPHETAMINES;Cutaneous abscess of right upper limb;Cutaneous abscess of left upper limb;Cellulitis and acute lymphangitis of other parts of limb-RIGHT LOWER LEG;UTI/ Urinary tract infection, site not specified Presentation: 03/23 03:07 Chief complaint: EMS states: 37 year old female reports using the drug Meth a week ago ha1 and has developed an abscess at the area where she injected the drug at the right AC and right ankle. Coronavirus screen: Vaccine status: Patient reports receiving the 1st dose of the Covid vaccine. [employer]. Ebola Screen: No symptoms or risks identified at this time. Initial Sepsis Screen: Does the patient meet any 2 criteria? No. Patient's initial sepsis screen is negative. Does the patient have a suspected source of infection? Yes: Other: abscess at right AC. Risk Assessment: Do you want to hurt yourself or someone else? Patient reports no desire to harm self or others. Onset of symptoms was March 23, 2023. 03:07 Method Of Arrival: EMS: [facility] ha1 03:07 Acuity: BERNADETTE 3 ha1 Triage Assessment: 03:13 General: Appears comfortable, Behavior is cooperative, anxious. Pain: Complains of pain ha1 in right antecubital area and right leg Pain does not radiate. Pain currently is 7 out of 10 on a pain scale. Quality of pain is described as burning, Pain began gradually. Neuro: Level of Consciousness is awake, alert, obeys commands, Oriented to person, place, time, situation. Cardiovascular: Capillary refill < 3 seconds. Respiratory: Airway is patent Respiratory effort is even, unlabored, Respiratory pattern is regular, symmetrical. Derm: Skin is normal, Abscess located on right antecubital area is quarter sized, has no drainage, is red. Musculoskeletal: Circulation, motion, and sensation intact. Historical: - Allergies: 03:13 Darvocet-N 100; ha1 03:13 Tramadol HCl; ha1 03:13 Ultracet; ha1 03:13 Vancomycin; ha1 - Immunization history:: Adult Immunizations not up to date. - Social history:: Smoking status: Patient/guardian denies using tobacco, Patient uses street drugs, Methamphetamine (Meth). - Family history:: not pertinent. Screenin:17 Abuse screen: Denies threats or abuse. Denies injuries from another. Nutritional ha1 screening: No deficits noted. Tuberculosis screening: No symptoms or risk factors identified. 04:00 [facility] ED Fall Risk Assessment (Adult) History of falling in the last 3 months, tm6 including since admission No falls in past 3 months (0 pts). Assessment: 04:00 General: Appears in no apparent distress. Behavior is cooperative. Pain: Complains of tm6 pain in left arm and right leg and right arm and right antecubital area. Neuro: Level of Consciousness is awake, alert, obeys commands, Oriented to person, place, time, situation. Cardiovascular: Capillary refill < 3 seconds Patient's skin is warm and dry. Respiratory: Airway is patent Respiratory effort is even, unlabored, Respiratory pattern is regular, symmetrical. GI: Abdomen is flat, non-distended. : No signs and/or symptoms were reported regarding the genitourinary system. EENT: No signs and/or symptoms were reported regarding the EENT system. Derm: Abscess located on left arm and right leg and right arm and right antecubital area. Musculoskeletal: No signs and/or symptoms reported regarding the musculoskeletal system. 04:03 Reassessment: Patient and/or family updated on plan of care and expected duration. Pain ha1 level reassessed. Patient is alert, oriented x 3, equal unlabored respirations, skin warm/dry/pink. Vital Signs: 03:07 BP 150 / 105; Pulse 78; Resp 17 S; Temp 97.9(O); Pulse Ox 100% on R/A; Weight 54.43 kg; ha1 03:59 BP 142 / 83; Pulse 110; Pulse Ox 100% on R/A; tm6 ED Course: 03:04 Patient arrived in ED. rv1 03:04 Patient has correct armband on for positive identification. Bed in low position. Call ha1 light in reach. Side rails up X 1. Adult w/ patient. 03:04 Arm band placed on right wrist. tm6 03:06 Armando Su MD is Attending Physician. guido 03:13 Triage completed. ha1 03:22 Kwame Mckinley MD is Referral Physician. guido 03:31 Bala Leal, RN is Primary Nurse. tm6 03:36 Urinalysis w/ reflexes Sent. vk 03:37 PREGU Sent. vk 04:00 Provided Education on: plan of care. Client placed on continuous cardiac and pulse tm6 oximetry monitoring. NIBP monitoring applied. 04:00 No provider procedures requiring assistance completed. Patient did not have IV access tm6 during this emergency room visit. Administered Medications: 03:36 Drug: Doxycycline PO 200 mg PO once Route: PO; tm6 04:04 Follow up: Response: No adverse reaction ha1 03:36 Drug: Trimethoprim-Sulfamethoxazole PO (160 mg-800 mg (DS) 1 tablet PO once Route: PO; tm6 04:04 Follow up: Response: No adverse reaction ha1 04:01 Not Given (Patient Refused): rocephin (ceftriaxone)1 grams IM once tm6 Medication: 03:17 VIS not applicable for this client. ha1 Outcome: 03:24 Discharge ordered by . guido 04:02 Discharged to home ambulatory, tm6 04:02 Condition: stable 04:02 Discharge instructions given to patient, Instructed on discharge instructions, follow up and referral plans. medication usage, Demonstrated understanding of instructions, follow-up care, medications, Prescriptions given X 2, 04:03 Patient left the ED. ha1 Signatures: Armando Su MD MD cha Ayala, Heidy, RN RN ha1 Randee Hernandez 1 Bala Leal, LAURIE SULLIVAN [facility] Susan Bennett
--- NOTE | 2023-03-23 03:25 | EDPHYS ---
Physician Documentation [facility]itha Name: Geoff Sanz Age: 37 yrs Sex: Female : 1985 Arrival Date: 03/23/2023 Time: 03:02 Bed 8 Private MD: ED Physician Armando Su HPI: 03/23 03:12 This 37 yrs old Female presents to ER via Unassigned with complaints of meth guido injection sites. 03:12 The patient presents with an abscess of the right arm, left arm and right leg. guido Description: The affected area is small, confluent, erythematous, fluctuant. Onset: The symptoms/episode began/occurred 10 day(s) ago. Possible cause(s): drug injection. Associated signs and symptoms: The patient has no apparent associated signs or symptoms. Modifying factors: the symptoms are alleviated by nothing, the symptoms are aggravated by squeezing the lesion and expressing the contents. Severity of symptoms: At their worst the symptoms were mild, moderate, in the emergency department the symptoms have improved, mildly. It is unknown whether or not the patient has had similar symptoms in the past. Historical: - Allergies: 03:13 Darvocet-N 100; ha1 03:13 Tramadol HCl; ha1 03:13 Ultracet; ha1 03:13 Vancomycin; ha1 - Immunization history:: Adult Immunizations not up to date. - Social history:: Smoking status: Patient/guardian denies using tobacco, Patient uses street drugs, Methamphetamine (Meth). - Family history:: not pertinent. ROS: 03:12 Constitutional: Negative for fever, chills, and weight loss, Eyes: Negative for injury, guido pain, redness, and discharge, ENT: Negative for injury, pain, and discharge, Neck: Negative for injury, pain, and swelling, Cardiovascular: Negative for chest pain, palpitations, and edema, Respiratory: Negative for shortness of breath, cough, wheezing, and pleuritic chest pain, Abdomen/GI: Negative for abdominal pain, nausea, vomiting, diarrhea, and constipation, Back: Negative for injury and pain, : Negative for injury, bleeding, discharge, and swelling, Neuro: Negative for headache, weakness, numbness, tingling, and seizure, Psych: Negative for depression, anxiety, suicide ideation, homicidal ideation, and hallucinations, Allergy/Immunology: Negative for hives, rash, and allergies, Endocrine: Negative for neck swelling, polydipsia, polyuria, polyphagia, and marked weight changes, 03:12 MS/extremity: Positive for erythema, pain, of the right arm, left arm and right leg, Exam: 03:12 Constitutional: This is a well developed, well nourished patient who is awake, alert, guido and in no acute distress. Head/Face: Normocephalic, atraumatic. Eyes: Pupils equal round and reactive to light, extra-ocular motions intact. Lids and lashes normal. Conjunctiva and sclera are non-icteric and not injected. Cornea within normal limits. Periorbital areas with no swelling, redness, or edema. ENT: Nares patent. No nasal discharge, no septal abnormalities noted. Tympanic membranes are normal and external auditory canals are clear. Oropharynx with no redness, swelling, or masses, exudates, or evidence of obstruction, uvula midline. Mucous membranes moist. Neck: Trachea midline, no thyromegaly or masses palpated, and no cervical lymphadenopathy. Supple, full range of motion without nuchal rigidity, or vertebral point tenderness. No Meningismus. Chest/axilla: Normal chest wall appearance and motion. Nontender with no deformity. No lesions are appreciated. Cardiovascular: Regular rate and rhythm with a normal S1 and S2. No gallops, murmurs, or rubs. Normal PMI, no JVD. No pulse deficits. Respiratory: Lungs have equal breath sounds bilaterally, clear to auscultation and percussion. No rales, rhonchi or wheezes noted. No increased work of breathing, no retractions or nasal flaring. Abdomen/GI: Soft, non-tender, with normal bowel sounds. No distension or tympany. No guarding or rebound. No evidence of tenderness throughout. Back: No spinal tenderness. No costovertebral tenderness. Full range of motion. Neuro: Awake and alert, GCS 15, oriented to person, place, time, and situation. Cranial nerves II-XII grossly intact. Motor strength 5/5 in all extremities. Sensory grossly intact. Cerebellar exam normal. Normal gait. Psych: Awake, alert, with orientation to person, place and time. Behavior, mood, and affect are within normal limits. 03:12 Skin: abscess, that is small, approximately 1 cm(s), of the right antecubital area, cellulitis, that is minimal, induration, that is mild is noted, Vital Signs: 03:07 BP 150 / 105; Pulse 78; Resp 17 S; Temp 97.9(O); Pulse Ox 100% on R/A; Weight 54.43 kg; ha1 03:59 BP 142 / 83; Pulse 110; Pulse Ox 100% on R/A; tm6 MDM: 03:07 Patient medically screened. [facility] 03:20 Differential diagnosis: abscess, cellulitis. Data reviewed: vital signs, nurses notes. [facility] Consideration of Admission/Observation Escalation of care including admission/observation considered. I considered the following discharge prescriptions or medication management in the emergency department Medications were administered in the Emergency Department. See MAR. Test considered but Not performed: Labs: no cbc, no cpmp. 03/23 03:11 Order name: Urinalysis w/ reflexes; Complete Time: 03:51 [facility] 03/23 03:11 Order name: PREGU; Complete Time: 03:51 [facility] 03/23 03:49 Order name: Urine Culture EDMS Administered Medications: 03:36 Drug: Doxycycline PO 200 mg PO once Route: PO; tm6 04:04 Follow up: Response: No adverse reaction ha1 03:36 Drug: Trimethoprim-Sulfamethoxazole PO (160 mg-800 mg (DS) 1 tablet PO once Route: PO; tm6 04:04 Follow up: Response: No adverse reaction ha1 04:01 Not Given (Patient Refused): rocephin (ceftriaxone)1 grams IM once tm6 Disposition Summary: 03/23/23 03:24 Discharge Ordered Notes: Location: Home guido Problem: new guido Symptoms: have improved guido Condition: Stable guido Diagnosis - Abuse of other non-psychoactive substances - IVDA, METHAMPHETAMINES guido - Cutaneous abscess of right upper limb guido - Cutaneous abscess of left upper limb guido - Cellulitis and acute lymphangitis of other parts of limb - RIGHT LOWER LEG guido - UTI/ Urinary tract infection, site not specified guido Followup: guido - With: Private Physician - When: 2 - 3 days - Reason: Recheck today's complaints, Continuance of care, Re-evaluation by your physician Followup: guido - With: Kwame Mckinley MD - When: 2 - 3 days - Reason: Recheck today's complaints, Re-evaluation by your physician Discharge Instructions: - Discharge Summary Sheet guido - Skin Abscess guido - Amphetamines Use Disorder guido - Substance Use Disorder guido - Urinary Tract Infection, Adult guido - Skin Abscess, [id number] guido - Urinary Tract Infection, Adult, Eaxz-ny-Xeah guido - Methamphetamines Use Disorder guido - Substance Use Disorder and Mental Illness guido - Illegal Drug Use Information, Adult guido - Supporting Someone With Substance Use Disorder [facility] Forms: - Medication Reconciliation Form [facility] - Thank You Letter guido - Antibiotic Education guido - Prescription Opioid Use guido - Patient Portal Instructions [facility] - Leadership Thank You Letter [facility] Prescriptions: - Doxycycline Hyclate 100 mg Oral Tablet - take 1 tablet ORAL route every 12 hours; 20 tablet; Refills: 0, Product [facility] Selection Permitted - Bactrim DS 800-160 mg Oral Tablet - take 1 tablet ORAL route every 12 hours for 10 days; 20 tablet; Refills: 0, [facility] Product Selection Permitted Signatures: Dispatcher [employer] Armando Robles MD MD cha Ayala, Heidy RN RN ha1 Bala Leal RN RN tm6
[2023-03-23 03:44] LABS: Specific Gravity 1.026 (1.005-1.030); Urine Bacteria Loaded /HPF (<20); Urine Bilirubin NEGATIVE (Negative); Urine Blood Trace (Negative); Urine Clarity Extremely Turbid (Clear); Urine Color Light-Yellow (Yellow); Urine Glucose NEGATIVE (Negative); Urine Protein TRACE (Negative); Urine Urobilinogen Normal (Normal)
[2023-03-23 08:19] VITALS: BP 142/83; TEMP 97.9; O2SAT 100
== END ==
LOC: ER 03:02
DX: L02.413 Cutaneous abscess of right upper limb (principal); L02.414 Cutaneous abscess of left upper limb; L03.115 Cellulitis of right lower limb; L03.125 Acute lymphangitis of right lower limb; N39.0 Urinary tract infection, site not specified; F15.10 Other stimulant abuse, uncomplicated
CPT/HCPCS: 81001; 81025; 87077; 87086; 87088; 87186; 99284; J0696

== ENCOUNTER 2024-05-29 08:56 | Emergency (ER) | payer OTHER, SELFPAY ==
[2024-05-29] MEDS ORDERED: KETOROLAC 30 MG/ML INJ ONE (09:33)
--- NOTE | 2024-05-29 10:31 | RAD REPORT ---
EXAM: XR Hand Right 3 View HISTORY: PAIN COMPARISON: None TECHNIQUE: 3 radiographic views of the RIGHT hand submitted. FINDINGS: No evidence of acute fracture or dislocation. Joint alignment is maintained. No soft tissu e swelling is seen.. No significant degenerative changes are present. IMPRESSION: No significant bone or joint abnormality.
--- NOTE | 2024-05-29 11:56 | ER ---
Nurse's Notes [facility] Name: Geoff Sanz Age: 38 yrs Sex: Female : 1985 Arrival Date: 05/29/2024 Time: 08:56 Bed DX3 Private MD: Diagnosis: Right hand pain Presentation: 05/29 09:06 Chief complaint: Patient states: R arm pain, numbness, swelling for 10 days. Pain to L ll1 palm started hurting 2-3 days ago. Coronavirus screen: Client denies travel out of the [place] in the last 14 days. At this time, the client does not indicate any symptoms associated with coronavirus-19. Ebola Screen: Patient denies travel to an Ebola-affected area in the 21 days before illness onset. Initial Sepsis Screen: Does the patient meet any 2 criteria? No. Patient's initial sepsis screen is negative. Does the patient have a suspected source of infection? No. Patient's initial sepsis screen is negative. Risk Assessment: Do you want to hurt yourself or someone else? Patient reports no desire to harm self or others. Onset of symptoms was May 22, 2024. 09:06 Method Of Arrival: Ambulatory ll1 09:06 Acuity: BERNADETTE 4 ll1 Triage Assessment: 09:06 General: Appears uncomfortable, Behavior is calm, cooperative, appropriate for age. ll1 Pain: Complains of pain in right arm and left arm Pain currently is 10 out of 10 on a pain scale. Quality of pain is described as aching, throbbing. Musculoskeletal: Circulation, motion, and sensation intact. Capillary refill < 3 seconds, in right in left fingers. Swelling present in right hand Reports pain in left hand and right arm. 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 - Infectious Disease History:: Denies. - Social history:: Smoking status: Reported history of juuling and/or vaping. - Family history:: not pertinent. Screenin:05 [facility] ED Fall Risk Assessment (Adult) History of falling in the last 3 months, ll1 including since admission No falls in past 3 months (0 pts) Confusion or Disorientation No (0 pts) Intoxicated or Sedated No (0 pts) Impaired Gait No (0 pts) Mobility Assist Device Used No (0 pt) Altered Elimination No (0 pt) Score/Fall Risk Level 0 - 2 = Low Risk Maintained a safe environment, Hourly rounding (assess needs \T\ fall precautionary measures) done. Abuse screen: Denies threats or abuse. Nutritional screening: No deficits noted. Tuberculosis screening: No symptoms or risk factors identified. Assessment: 09:37 Reassessment: No changes from previously documented assessment. Patient and/or family ll1 updated on plan of care and expected duration. Pain level reassessed. 12:05 Reassessment: No changes from previously documented assessment. Patient and/or family ll1 updated on plan of care and expected duration. Pain level reassessed. Patient is alert, oriented x 3, equal unlabored respirations, skin warm/dry/pink. Vital Signs: 09:06 BP 146 / 94; Pulse 94; Resp 17; Temp 98; Pulse Ox 99% ; Pain 10/10; ll1 12:04 BP 141 / 91; Pulse 89; Resp 16; Pulse Ox 99% on R/A; ll1 09:06 Pain Scale: Adult ll1 ED Course: 09:00 Patient arrived in ED. al6 09:04 Rob Elliott MD is Attending Physician. rt 09:08 Triage completed. ll1 09:09 Arm band placed on. ll1 09:40 Patient has correct armband on for positive identification. Provided Education on: ER ll1 procedures and process. 09:56 Hand Right 3 View XRAY In Process Unspecified. EDMS 12:03 Nicanor Mendoza, LAURIE is Primary Nurse. ll1 12:05 No provider procedures requiring assistance completed. Patient did not have IV access ll1 during this emergency room visit. Administered Medications: 09:37 Drug: Ketorolac IM 15 mg IM once Route: IM; Site: right vastus lateralis; ll1 12:06 Follow up: Response: No adverse reaction; Pain is decreased ll1 Medication: 12:06 VIS not applicable for this client. ll1 Outcome: 11:55 Discharge ordered by . rt 12:05 Discharged to home ambulatory, ll1 12:05 Condition: stable 12:05 Discharge instructions given to patient, Instructed on discharge instructions, follow up and referral plans. medication usage, Demonstrated understanding of instructions, follow-up care, medications, Prescriptions given X 1, 12:06 Patient left the ED. 1 Signatures: Dispatcher [employer] Nicanor Nunes RN RN 1 Rob Elliott MD MD rt Rylee [email or web address]
--- NOTE | 2024-05-29 11:56 | EDPHYS ---
Physician Documentation [facility] Name: Geoff Sanz Age: 38 yrs Sex: Female : 1985 Arrival Date: 05/29/2024 Time: 08:56 Bed DX3 Private MD: ED Physician Rob Elliott HPI: 05/29 10:10 This 38 yrs old Female presents to ER via Ambulatory with complaints of rt Numbness Of Hand, Hand Swelling. 10:10 Patient presents to the ED with 1 week of pain to the right hand, worse with movement rt or working. Tress reports tingling sensation that radiates proximally. Denies discrete trauma. Denies other acute complaints at this time, symptoms are mild in severity, aching in nature, no other aggravating or alleviating factors.. 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 - Infectious Disease History:: Denies. - Social history:: Smoking status: Reported history of juuling and/or vaping. - Family history:: not pertinent. ROS: 10:10 Constitutional: Negative for fever, chills, and weight loss, Cardiovascular: Negative rt for chest pain, palpitations, and edema, Respiratory: Negative for shortness of breath, cough, wheezing, and pleuritic chest pain, Abdomen/GI: Negative for abdominal pain, nausea, vomiting, diarrhea, and constipation, Skin: Negative for injury, rash, and discoloration, 10:10 MS/extremity: Positive for pain, swelling, Exam: 10:10 Constitutional: This is a well developed, well nourished patient who is awake, alert, rt and in no acute distress. Head/Face: Normocephalic, atraumatic. Skin: Warm, dry with normal turgor. Normal color with no rashes, no lesions, and no evidence of cellulitis. Neuro: Awake and alert, GCS 15, oriented to person, place, time, and situation. Cranial nerves II-XII grossly intact. Motor strength 5/5 in all extremities. Sensory grossly intact. Cerebellar exam normal. Normal gait. 10:10 Musculoskeletal/extremity: No appreciable swelling, no overlying skin changes, pulses, motor, sensation are intact, mild tenderness over the thenar eminence, no other focal areas of tenderness on the right upper extremity.. Vital Signs: 09:06 BP 146 / 94; Pulse 94; Resp 17; Temp 98; Pulse Ox 99% ; Pain 10/10; ll1 12:04 BP 141 / 91; Pulse 89; Resp 16; Pulse Ox 99% on R/A; ll1 09:06 Pain Scale: Adult ll1 MDM: 09:07 Medical Screening Exam initiated rt 16:13 Differential diagnosis: Tendinitis, overuse injury, arthritis, radiculopathy. Data rt reviewed: vital signs, nurses notes, radiologic studies. I considered the following discharge prescriptions or medication management in the emergency department Medications were administered in the Emergency Department. See MAR. Independent interpretation of the following test(s) in the Emergency Department X-Ray: My interpretation is No fracture seen on my interpretation of x-ray images. Counseling: I had a detailed discussion with the patient and/or guardian regarding the historical points, exam findings, and any diagnostic results supporting the discharge/admit diagnosis, radiology results, the need for outpatient follow up. Response to treatment: the patient's symptoms have mildly improved after treatment. 05/29 09:12 Order name: Hand Right 3 View XRAY; Complete Time: 10:38 rt Administered Medications: 09:37 Drug: Ketorolac IM 15 mg IM once Route: IM; Site: right vastus lateralis; ll1 12:06 Follow up: Response: No adverse reaction; Pain is decreased ll1 Disposition Summary: 05/29/24 11:55 Discharge Ordered Notes: Location: Home rt Problem: new rt Symptoms: are unchanged rt Condition: Stable rt Diagnosis - Right hand pain rt Followup: rt - With: Private Physician - When: 5 - 6 days - Reason: Discharge Instructions: - Discharge Summary Sheet ll1 - Hand Pain rt Forms: - Work release form ll1 - Medication Reconciliation Form rt - Antibiotic Education rt - Prescription Opioid Use rt - Patient Portal Instructions rt - Leadership Thank You Letter rt Prescriptions: - Prednisone 20 mg Oral Tablet - take 2 tablets ORAL route once daily for 5 days; 10 tablet; Refills: 0, Product rt Selection Permitted Signatures: Dispatcher [employer] Nicanor Nunes RN RN ll1 Rob Elliott MD MD rt
[2024-05-29 12:28] VITALS: TEMP 98; O2SAT 99
[2024-05-29 12:32] VITALS: BP 141/91
== END 2024-05-29 12:06 | disposition home or self-care (01) ==
LOC: ER 08:56
DX: M79.641 Pain in right hand (principal)